=== PATIENT | male | born 1950 | race Caucasian/White ===

== ENCOUNTER 2016-08-02 16:23 | Inpatient (IN) ==
[2016-08-02] MEDS ORDERED: LACTULOSE 20 GM/30 ML UDCUP PO STA (16:58)
[2016-08-02] MEDS ORDERED: LACTULOSE 20 GM/30 ML UDCUP ONE (17:29)
--- NOTE | 2016-08-02 17:33 | CT Report ---
CT head/brain wo con Indication: Altered mental status and confusion. Comparison: None. Technique: CT of the brain was performed without administration of intravenous contrast. The CT examination was performed using one or more of the following dose reduction techniques: Automatic exposure control, adjustment of the mA and kV according to patient size, use of acute or iterative reconstruction techniques. Findings: There is no evidence of acute intracranial mass, hemorrhage, or infarction. Generalized cerebral atrophy is present. Areas of decreased attenuation within the periventricular white matter and cerebral white matter are present which could be compatible with microvascular ischemia. The basal cisterns are patent. No significant abnormality is demonstrated to involve the posterior fossa or cerebellum. Orbits and globes demonstrate no evidence of significant pathology. The paranasal sinuses are clear. No significant abnormality is demonstrated to involve the mastoid air cells. The calvarium and overlying soft tissues demonstrate no evidence of acute pathology. Impression: 1. No CT evidence of acute intracranial pathology. 2. Generalized atrophy and findings compatible with microvascular ischemia are demonstrated. 08/02/2016 5:29 PM PROCEDURE INTERPRETED AT [facility] DEPARTMENT OF RADIOLOGY Final Report Signed by: Dr. Iker Larios
--- NOTE | 2016-08-02 17:34 | XRay Report ---
XR chest 1V portable Indication: Altered mental status. Comparison: Chest x-ray 05/28/2016 Technique: Portable AP chest was performed. Findings: Patient is rotated to the right. The heart size is stable. A small hiatal hernia to moderate hiatal hernia is not excluded. Lungs are clear for degree of inspiration. Bones and soft tissues demonstrate no significant abnormalities. Partially calcified left hilar lymph nodes are suggested. Impression: 1. Given the degree of rotation, the chest suggests little change from comparison. No active process is demonstrated. 08/02/2016 5:30 PM PROCEDURE INTERPRETED AT [facility] DEPARTMENT OF RADIOLOGY Final Report Signed by: Dr. Iker Larios
[2016-08-02 17:39] LABS: Basophils % 0.4 % (0.0-0.8); Eosinophils # 0.1 10*3/uL (0.0-0.87); Eosinophils % 1.6 % (0.00-10.9); Hematocrit 26.4 VOL% (42.0-52.0); Immature Granulocytes % 0.2 %; Immature Granulocytes Absolute 0.02 #; Lymphocytes # 1.7 10*3/uL (1.4-4.0); Lymphocytes % 20.8 % (21.2-54.2); Mean Corpuscular HGB Conc 34.1 GM/DL (32-36); Mean Corpuscular Hemoglobin 32 PG (27-34); Mean Platelet Volume 9.3 FL (9.6-12.0); Monocytes # 0.6 10*3/uL (0.11-0.8); Monocytes % 7.9 % (1.7-12.7); NRBC # 0.03 10*3/uL; Neutrophils # 5.6 10*3/uL (1.4-7.4); Neutrophils % 69.1 % (38.7-73.9); Platelet Count 185 T/CUMM (130-400); Red Blood Count 2.78 MC/CUMM (3.8-5.5); Red Cell Distribution Width 15.2 % (9.3-17.3); White Blood Count 8.1 T/CUMM (4-12)
--- NOTE | 2016-08-02 17:40 | Emergency Department Note ---
ILisseth Sierra, am scribing for, and in the presence of, Ricardo Gr MD 17:11. IMaile Charles R, MD, personally performed the services described in this documentation, ascribed by Hetal Montanez in my presence, and it is both accurate and complete 739 . Arrival - Arrival Chief Complaint: Altered Mental Status ED Nursing Triage Note: brought in by EMS c/o altered LOC-onset yesterday. EMS reports that patient has been having hallucinations sicne last night. Also reports that patient fell last night-denies injuries from fall. Patient has hx of cirrhosis, has been refusing to take Lactulose since last week. Mode of Arrival: Stretcher Limitations: Altered Mental Status Source: Patient, EMS Time Seen by Provider: 08/02/16 16:46 - History of Present Illness HPI Narrative: Pt is a 65 y/o male that was brought to the ED via EMS with c/o AMS that began yesterday. Pt reports he is here because his home health nurse said his blood pressure was too low and he was in Afib. EMS states pt has been having hallucinations since last night, and he reports he has been "waking up and I don 't know where I am sometimes." EMS states pt also fell last night but denies injuries from fall. Pt reports he does have fluid build up on his abdomen and has had to have it drained twice in the last month. Pt has a Hx of cirrhosis and RN notes states pt has been refusing to take his Lactulose since last week. Pt reports he has been bleeding from his left leg that he was scheduled to have a skin graft on today. Pt has a PSHx of a partial right pneumonectomy. No other complaints/pain in ED. Onset (ago): hour(s) Consistency: constant Severity: moderate Severity scale (1-10): 5 Quality: other Allergies/Adverse Reactions: Allergies Allergy/AdvReac Type Severity Reaction Status Date / Time No Known Allergies Allergy Verified 07/31/16 10:00 Home Medications: Home Medications Medication Instructions Recorded Confirmed Type Allopurinol [Zyloprim] 300 mg PO BID 08/19/14 08/02/16 History Aspirin [Ecotrin] 81 mg PO DAILY 08/19/14 08/02/16 History Metoprolol Tartrate 25 mg PO BID 08/19/14 08/02/16 History Lactulose Liquid [Chronulac] 20 gm PO Q12HR 08/19/15 08/02/16 History Levothyroxine Tab [Synthroid Tab] 125 mcg PO DAILY@0700 08/19/15 08/02/16 History oxyCODONE/ACETAMINOPHEN 5-325 2 tablet PO Q4H PRN #30 tablet 06/19/16 08/02/16 Rx [Percocet 5-325] Digoxin Tab [Lanoxin Tab] 0.25 mg PO DAILY 07/30/16 08/02/16 History Diltiazem Cd Cap [Cardizem CD] 120 mg PO DAILY 07/30/16 08/02/16 History Omeprazole Magnesium [Prilosec] 20 mg PO DAILY 07/30/16 08/02/16 History Review of System - Review of System ROS unobtainable: due to mental status Medical,Surgical,& Family Hx - Medical History Cardio: History of: Cardiac Dysrhythmia (atrial fib), Hypertension, PVD ( multiple stents in right leg and groin), Cardiovascular Problems (afib; DR RIZVI) No history of: [place], Pacemaker Psychological: History of: Anxiety Disorders, Depression Neurology: No history of: Cerebrovascular Accident, Dementia, Seizures, TIA HEENT: History of: Ear Problem ([place]), Eye Problem ([place]) No history of: Glaucoma Endocrine: History of: Diabetes Mellitus (NIDDM), Dyslipidemia, Thyroid Disorder No history of: Diabetes Mellitus (IDDM) Rheumatology: History of;: Gout (knees, feet, ankles, wrist, and hands) Respiratory: History of: Obstructive Sleep Apnea (USES CPAP AT BEDTIME) No history of: Bronchitis, COPD Genitourinary: History of: Prostate Problems Gastrointestinal: History of: Esophageal Varices, GERD, Gastrointestinal Bleed, Liver Problems (possible cirrhosis-quit drinkin alcohol), GI Problems (dysphagia ) Musculoskeletal: History of: Back/Neck Problems (multiple back surgeries), Degenerative Disk Disease, Musculoskeletal Problems (arthritis) Hematology: History of: Anemia No history of: Blood Transfusion Reaction Other: History of: Cancer (prostate) No history of: Anesthesia Reactions - Surgical History Cardiac Surgeries: Sugical HX of: Femoral-Popliteal Bypass Graft (right groin and right leg with stents) Patient Denies: Cardiac Catheterization, Carotid Endarterectomy Comment Only: Internal Defibrillator (2010- no significant coronary artery disease) Thoracic Surgeries: Surgical HX of;: Lobectomy (right lower lobe) HEENT Surgeries: Patient denies: Carotid Endarterectomy, Eye Surgery, Thyroid Surgery, Tonsilectomy & Adenoidectomy Abdominal Surgeries: Surgical HX of: Abdominal Surgery, Colonoscopy, EGD, Hernia Repair (x2) Patient denies: Appendectomy, Cholecystectomy Reproductive Surgeries: Surgical HX of;: Genitourinary Surgery, Prostate Surgery (prostatectomy.cancer removed 2010 or 2011 in [place]) Orthopedic Surgeries: Surgical HX of;: Implanted Devices (PLATE IN BACK), Orthopedic Surgery (knee surgery x 9, hand (carpatunnel surgery to both hands), shoulder), Spinal Surgery (multiple back surgeries), Total Knee Replacement ( LEFT KNEE REPLACEMENT) - Family History Family History: Reports;: Family Cancer (father-cirrhosis), Family Diabetes ( Father and possibly a sister), Family Heart Disease (DAD,MOM,SISTER), Family Hypertension (DAD,SISTER, BROTHER), Family Stroke (DAD) Denies;: Family Anesthesia Reaction, Family Psychiatric Problems - Social History Smoking Status: Never smoker Frequency of Alcohol Use: None Type of Drug Use: None Exam Vital Signs: Vital Signs Temperature 96.3 F L 08/02/16 16:28 Pulse Rate 73 08/02/16 18:30 Respiratory Rate 13 08/02/16 18:30 Blood Pressure 91/66 08/02/16 18:30 O2 Sat by Pulse Oximetry 97 08/02/16 18:30 - General General appearance: alert, in no apparent distress - Head Head exam: Present: atraumatic, normocephalic - Eye Eye exam: Present: PERRL, EOMI - ENT ENT exam: Present: mucous membranes moist. Absent: mucous membranes dry - Neck Neck exam: Present: full ROM. Absent: tenderness - Chest Chest inspection: Present: symmetric chest wall rise. Absent: tenderness - Respiratory Respiratory exam: Present: rales (bilateral rales). Absent: normal lung sounds bilaterally (decreased breath sounds in right side) - Cardiovascular Cardiovascular exam: Present: irregular rhythm, normal heart sounds, JVD ( increased JVD distention) - Abdominal Exam Abdominal exam: Present: soft, distention (abdominal distention with ascites) - Extremities Exam Extremities exam: Present: full ROM, other (+3 edema; healing wound on left leg that is bandaged). Absent: tenderness - Back Exam Back exam: Present: full ROM. Absent: tenderness - Neurological Exam Neurological exam: Present: alert, other (slightly confused and not listening to commands) - Psychiatric Psychiatric exam: Present: other (slightly confused). Absent: normal mood - Skin Skin exam: Present: warm, dry Course - Consultations Consultation #1: Hospitalist will admit patient Time: 18:44 Results - Labs CBC & BMP: 08/02/16 17:18 08/02/16 17:18 Lab Results: I have reviewed the patients labs Labs: Laboratory Tests 08/02/16 17:18 RBC 2.78 L Hgb 9.0 L Hct 26.4 L MPV 9.3 L Lymph % (Auto) 20.8 L Laboratory Tests 08/02/16 18:10 Urine Color Yellow Urine Appearance Clear Urine pH 5.0 Ur Specific Ivins 1.016 Urine Protein Negative Urine Glucose (UA) Negative Urine Ketones Negative Urine Blood Negative Urine Nitrate Negative Urine Bilirubin Negative Urine Urobilinogen < 2.0 H Urine Leukocytes Negative Urine RBC 1 Urine WBC 3 Urine Mucus Occasional Laboratory Tests 08/02/16 08/02/16 17:18 17:18 Sodium 135 L Carbon Dioxide 20 L BUN 23 H Creatinine 1.80 H Glucose 111 H Calcium 7.8 L Magnesium 1.6 L Alkaline Phosphatase 229 H Ammonia 49 H Total Protein 4.9 L Albumin 2.2 L Albumin/Globulin Ratio 0.8 L Lipase 63.0 L Digoxin 3.10 H* Serum Alcohol < 15 L Laboratory Tests 08/02/16 18:10 Urine Opiates Screen Positive H U Benzodiazepines Scrn Positive H - Diagnostic Findings Procedure: Chest x-ray: report reviewed by me (1. Given the degree of rotation, the chest suggests little change from comparison. No active process is demonstrated.), CT: report reviewed by me (Head: 1. No CT evidence of acute intracranial pathology. 2. Generalized atrophy and findings compatible with microvascular ischemia are demonstrated.) Critical Care Time Critical Care Time: Yes Total Critical Care Time: 60 Disposition Clinical Impression: Altered mental status, Cirrhosis of liver, Generalized weakness, GENERAL DEBILITY, Alcoholic cirrhosis of liver with ascites, Atrial fibrillation, Nonhealing wound left lower extremity, Digoxin toxicity, Ulcer, Anemia of chronic disease, Diabetes mellitus, Hypomagnesemia Case discussed with: patient Disposition: Still a Patient Condition: Guarded Time of Disposition: 18:44
[2016-08-02 17:50] LABS: INR 1.1; PT Patient Result 12.2 SECS
[2016-08-02 18:01] LABS: Alanine Aminotransferase 16 U/L (16-61); Albumin 2.2 G/DL (3.4-5.0); Alkaline Phosphatase 229 U/L (45-117); Amylase 25 U/L (25-115); Aspartate Amino Transferase 32 U/L (0-37); Blood Urea Nitrogen 23 MG/DL (7-18); Calcium 7.8 MG/DL (8.5-10.1); Glucose 111 MG/DL (74-106); Magnesium 1.6 MG/DL (1.8-2.4); Osmolality,Calculated 274.1 MOS/KG (273-304); Potassium 3.8 MMOL/L (3.5-5.1); Sodium 135 MMOL/L (136-145); Total Protein 4.9 G/DL (6.4-8.3); Troponin I Only 0.038 NG/ML (0.00-0.045)
[2016-08-02 18:04] LABS: Ammonia 49 UMOL/L (11-32)
[2016-08-02 18:23] LABS: Apearance,Urine CLEAR (Clear); Bilirubin,Urine Negative (Negative); Blood, Urine Negative (Negative); Glucose,Urine (UA) Negative (Negative); Ketones,Urine Negative (Negative); Mucus,Urine Occasional /LPF (Occasional); Nitrite,Urine Negative (Negative); Protein,Urine Negative; RBC,Urine 1 /HPF (0-4); Urine Color Yellow (Yellow); Urine Specific Gravity 1.016 (1.001-1.035); Urine Urobilinogen < 2.0 EU/DL (0.2-1.0); WBC,Urine 3 /HPF (0-6)
[2016-08-02 18:38] LABS: Barbiturates Screen,Urine Negative (Negative); Benzodiazepines Screen,Urine Positive (Negative); Cannabinoid Screen,Urine Negative (Negative); Opiate Screen,Urine Positive (Negative); Phencyclidine Screen,Urine Negative (Negative)
[2016-08-02] MEDS ORDERED: MAGNESIUM SULF RIDER 2 GM in PREMIX 1 EACH IV STA (18:41)
[2016-08-02] MEDS ORDERED: MAGNESIUM SULF RIDER 50 ML IV ONE (18:44)
--- NOTE | 2016-08-02 19:36 | Hospitalist History & Physical ---
Assessment and Plan - Time spent with patient Time spent with patient: Greater than 30 minutes (1) Hypotension Status: Acute Assessment and plan: Unsure if this is related to his cirrhosis, however review of previous pressures have been higher. No evidence of infectious process, however his cirrhosis can mask normal immunological response. Will admit to ICU and place on broad spectrum antibiotics in case the source is his lower extremities. Current Visit: Yes (2) Encephalopathy acute Status: Acute Assessment and plan: May be secondary to digoxin toxicity and/or possible infectious etiology. Patient has no neurological deficits. Current Visit: Yes (3) Digoxin toxicity Status: Acute Assessment and plan: Admit to ICU, hold digoxin, consult cardiology. Obtaining EKG. Repeat lab in the AM. Current Visit: Yes (4) Atrial fibrillation Status: Chronic Assessment and plan: Chronic with history of GI bleed, not on anticoagulation except ASA. Continue with exception of metoprolol and diltiazem given hypotension. Cardiology consulted. Current Visit: Yes Qualifiers: Atrial fibrillation type: chronic Qualified Code(s): I48.2 - Chronic atrial fibrillation (5) Cirrhosis of liver Status: Chronic Assessment and plan: Ammonia is not significantly elevated. Holding lactulose for now. Defer paracentesis to daytime physician once patient is more stable. Current Visit: Yes Qualifiers: Hepatic cirrhosis type: alcoholic cirrhosis Ascites presence: with ascites Qualified Code(s): K70.31 - Alcoholic cirrhosis of liver with ascites (6) Open wounds involving multiple regions of lower extremity Status: Acute Assessment and plan: Broad spectrum antibiotics, consult Surgery. Current Visit: Yes (7) Gout Status: Acute Assessment and plan: Continue medications. Current Visit: Yes (8) Hypothyroidism Status: Acute Assessment and plan: Continue synthroid, obtain TSH. Current Visit: No (9) CKD (chronic kidney disease) Status: Acute Assessment and plan: At baseline. Current Visit: Yes (10) Diabetes mellitus Status: Chronic Assessment and plan: SSI and Accuchecks. Current Visit: Yes Qualifiers: Diabetes mellitus type: type 2 Diabetes mellitus complication status: with circulatory complication Diabetes mellitus complication detail: with peripheral angiopathy without gangrene History of Present Illness Chief complaint: altered mental status History of present illness: Mr. Turner is a 65 year old male with a medical history of hypertension, chronic atrial fibrillation, GI bleed, alcoholic cirrhosis, PAD, hypothyroidism, gout presents with altered mental status and hypotension. Patient was accompanied by his who states he has been confused since yesterday morning. She initially felt it was due to his narcotics, however despite holding them, his mentation didnt improve. She states he has been hallucinating, seeing his son and children. Furthermore, the day of admission he was weak and fell off the bedside commode. He was seen by a home health nurse who noted hypotension, and in the setting of confusion, referred him to the ER. Patient was recently discharged from [facility] where he had debridement of his lower extremities for cellulitis/nec fasc, and had a brief stint in [facility]. He was discharged, and two days ago had a skin graft of the areas of debridement of his lower extremity. There has been a foul smell from his lower extremities for several days. Patient is pleasant, and not noticeably confused. He has absolutely no complaints. Full 10 point ROS were performed. Home Medications Medication Instructions Recorded Confirmed Type Allopurinol [Zyloprim] 300 mg PO BID 08/19/14 08/02/16 History Aspirin [Ecotrin] 81 mg PO DAILY 08/19/14 08/02/16 History Metoprolol Tartrate 25 mg PO BID 08/19/14 08/02/16 History Lactulose Liquid [Chronulac] 20 gm PO Q12HR 08/19/15 08/02/16 History Levothyroxine Tab [Synthroid Tab] 125 mcg PO DAILY@0700 08/19/15 08/02/16 History oxyCODONE/ACETAMINOPHEN 5-325 2 tablet PO Q4H PRN #30 tablet 06/19/16 08/02/16 Rx [Percocet 5-325] Digoxin Tab [Lanoxin Tab] 0.25 mg PO DAILY 07/30/16 08/02/16 History Diltiazem Cd Cap [Cardizem CD] 120 mg PO DAILY 07/30/16 08/02/16 History Omeprazole Magnesium [Prilosec] 20 mg PO DAILY 07/30/16 08/02/16 History Allergies Allergy/AdvReac Type Severity Reaction Status Date / Time No Known Allergies Allergy Verified 07/31/16 10:00 Medical,Surgical,& Family Hx - Medical History Cardio: History of: Cardiac Dysrhythmia (atrial fib), Hypertension, PVD ( multiple stents in right leg and groin), Cardiovascular Problems (afib; DR RIZVI) No history of: [place], Pacemaker Psychological: History of: Anxiety Disorders, Depression Neurology: No history of: Cerebrovascular Accident, Dementia, Seizures, TIA HEENT: History of: Ear Problem ([place]), Eye Problem ([place]) No history of: Glaucoma Endocrine: History of: Diabetes Mellitus (NIDDM), Dyslipidemia, Thyroid Disorder No history of: Diabetes Mellitus (IDDM) Rheumatology: History of;: Gout (knees, feet, ankles, wrist, and hands) Respiratory: History of: Obstructive Sleep Apnea (USES CPAP AT BEDTIME) No history of: Bronchitis, COPD Genitourinary: History of: Prostate Problems Gastrointestinal: History of: Esophageal Varices, GERD, Gastrointestinal Bleed, Liver Problems (possible cirrhosis-quit drinkin alcohol), GI Problems (dysphagia ) Musculoskeletal: History of: Back/Neck Problems (multiple back surgeries), Degenerative Disk Disease, Musculoskeletal Problems (arthritis) Hematology: History of: Anemia No history of: Blood Transfusion Reaction Other: History of: Cancer (prostate) No history of: Anesthesia Reactions - Surgical History Cardiac Surgeries: Sugical HX of: Femoral-Popliteal Bypass Graft (right groin and right leg with stents) Patient Denies: Cardiac Catheterization, Carotid Endarterectomy Comment Only: Internal Defibrillator (2011- no significant coronary artery disease) Thoracic Surgeries: Surgical HX of;: Lobectomy (right lower lobe) HEENT Surgeries: Patient denies: Carotid Endarterectomy, Eye Surgery, Thyroid Surgery, Tonsilectomy & Adenoidectomy Abdominal Surgeries: Surgical HX of: Abdominal Surgery, Colonoscopy, EGD, Hernia Repair (x2) Patient denies: Appendectomy, Cholecystectomy Reproductive Surgeries: Surgical HX of;: Genitourinary Surgery, Prostate Surgery (prostatectomy.cancer removed 2010 or 2011 in [place]) Orthopedic Surgeries: Surgical HX of;: Implanted Devices (PLATE IN BACK), Orthopedic Surgery (knee surgery x 9, hand (carpatunnel surgery to both hands), shoulder), Spinal Surgery (multiple back surgeries), Total Knee Replacement ( LEFT KNEE REPLACEMENT) - Family History Family History: Reports;: Family Cancer (father-cirrhosis), Family Diabetes ( Father and possibly a sister), Family Heart Disease (DAD,MOM,SISTER), Family Hypertension (DAD,SISTER, BROTHER), Family Stroke (DAD) Denies;: Family Anesthesia Reaction, Family Psychiatric Problems - Social History Smoking Status: Never smoker Frequency of Alcohol Use: None Type of Drug Use: None 12 point system: reviewed and no additional remarkable complaints except as stated - Constitutional Constitutional: Present: weight gain. Absent: anorexia, chills, excessive sweating, fatigue, fever(s), headache(s), increased appetite, lethargy, stops breathing during sleep, weakness, weight loss - EENT Nose, mouth and throat: Absent: dysphagia, epistaxis, headache(s), lip swelling , nasal congestion, sore throat, throat swelling, tongue swelling - Cardiovascular Cardiovascular: Present: edema. Absent: chest pain at rest, chest pain with activity, diaphoresis, dyspnea, dyspnea on exertion, orthopnea, palpitations - Respiratory Respiratory: Absent: cough, dyspnea, dyspnea on exertion, wheezing, snoring, change in phlegm color - Gastrointestinal Gastrointestinal: Present: bloating, diarrhea, loose stools. Absent: abdominal pain, constipation, cramping, dysphagia, early satiety, fecal incontinence, hematemesis, hematochezia, melena, nausea, odynophagia, vomiting, jaundice - Psychiatric Psychiatric: Present: auditory hallucinations, confusion, visual hallucinations. Absent: anxiety, memory loss, panic attacks, suicidal ideation - Endocrine Endocrine: Absent: cold intolerance, fatigue, polydipsia, polyphagia Exam - Constitutional Vitals: Period Temp Pulse Resp BP Sys/Collins Pulse Ox Last 24 Hr 96.3 F-96.3 F 69-83 13-20 91-144/66-84 97-100 General appearance: over weight, no no acute distress - Head Head exam: Present: normal inspection, normocephalic, atraumatic - Eye Eye exam: Present: EOMI. Absent: conjunctival injection, periorbital swelling Pupils: Present: HERNANDEZ. Absent: normal accommodation - ENT ENT exam: Present: normal exam - Respiratory Respiratory exam: Present: clear to auscultation bilaterally. Absent: accessory muscle use, chest wall tenderness, prolonged expiratory phase, wheezes - Cardiovascular Cardiovascular exam: Present: irregular rhythm. Absent: bradycardia, carotid bruit, regular rate and rhythm, systolic murmur - GI/Abdominal GI/Abdominal exam: Present: normal bowel sounds, ascites, distended, soft. Absent: hypoactive bowel sounds, hernia, mass, tenderness, rebound - Extremities Exam Extremities exam: Present: edema, other (surgical dressing over both thighs and right LE. Foul smell.) Results - Labs CBC & BMP: 08/02/16 17:18 08/02/16 17:18 Lab Results: I have reviewed the past 24 hour labs
[2016-08-02] MEDS ORDERED: GLUCAGON 1 MG VIAL IM PRN (20:20)
[2016-08-02] MEDS ORDERED: DEXTROSE 50% 25 GM/50 ML VIAL IV PRN (20:20)
[2016-08-02] MEDS: oxyCODONE/ACETAMINOPHEN 5-325 MG TABLET PO PRN (22:37)
[2016-08-02] MEDS: PIPERACILLIN/TAZOBACTAM 3,375 MG in SODIUM CHLORIDE 0.9% 100 ML IV SCH (22:37)
[2016-08-02] MEDS: ALLOPURINOL 300 MG TABLET PO SCH (22:38)
[2016-08-02] MEDS: VANCOMYCIN INJ 2,000 MG in SODIUM CHLORIDE 0.9% 500 ML IV SCH (23:47)
[2016-08-03] MEDS: INSULIN LISPRO 100 UNIT/ML SUBCUT SCH ×4 (01:14→17:26)
[2016-08-03] MEDS: PIPERACILLIN/TAZOBACTAM 3,375 MG in SODIUM CHLORIDE 0.9% 100 ML IV SCH ×3 (05:47→22:58)
[2016-08-03 05:53] LABS: Basophils % 0.5 % (0.0-0.8); Eosinophils # 0.2 10*3/uL (0.0-0.87); Eosinophils % 2.8 % (0.00-10.9); Hematocrit 26.2 VOL% (42.0-52.0); Hemoglobin 8.8 GM/DL (14.0-18.0); Immature Granulocytes % 0.4 %; Immature Granulocytes Absolute 0.03 #; Lymphocytes % 25.5 % (21.2-54.2); Mean Corpuscular HGB Conc 33.6 GM/DL (32-36); Mean Corpuscular Hemoglobin 32 PG (27-34); Mean Corpuscular Volume 94.9 FL (87-102); Mean Platelet Volume 9.7 FL (9.6-12.0); Monocytes # 0.7 10*3/uL (0.11-0.8); Monocytes % 9.3 % (1.7-12.7); NRBC # 0.02 10*3/uL; Neutrophils # 4.7 10*3/uL (1.4-7.4); Neutrophils % 61.5 % (38.7-73.9); Platelet Count 184 T/CUMM (130-400); Red Blood Count 2.76 MC/CUMM (3.8-5.5); Red Cell Distribution Width 15.1 % (9.3-17.3); White Blood Count 7.7 T/CUMM (4-12)
[2016-08-03 06:33] LABS: Albumin 2.1 G/DL (3.4-5.0); Bilirubin,Total 0.9 MG/DL (0.2-1.0); Calcium 8.3 MG/DL (8.5-10.1); Osmolality,Calculated 278.7 MOS/KG (273-304); Potassium 5.2 MMOL/L (3.5-5.1); Thyroid Stimulating Hormone 0.585 uIU/ml (0.358-3.74); Total Protein 4.7 G/DL (6.4-8.3)
[2016-08-03] MEDS: LEVOTHYROXINE 125 MCG TABLET PO SCH (06:37)
--- NOTE | 2016-08-03 07:49 | EKG Report ---
Stationary ECG Study [facility] Test Date: 08/03/2016 1:44:58 AM Pat Name: ANGELES MARTINEZ Department: Room: 121 Gender: M Genetic Supervisor: : 1950 Requested by: Ricardo Mack Order Number: [id number] Reading MD: ANDRES ROGERS Intervals Superior Rate: 72 P: 999 LA: 0 QRS: -15 QRSD: 86 T: -22 QT: 410 QTc: 435 Interpretive Statements ATRIAL FIBRILLATION INFERIOR MYOCARDIAL INFARCTION, PROBABLY OLD Electronically Signed On 08-03-16 17:20:01 CDT by ANDRES ROGERS [email or web address]
--- NOTE | 2016-08-03 08:36 | Physician Query Form ---
CLICK EDIT DOCUMENT TO SELECT QUERY ANSWER --> OK --> SIGN Kimmie Larios RN, CCDS Certified Clinical Ware Carrier W) [phone] (f) [phone] [email or web address] PROVIDERS: Make your selection(s) from the choices in EACH section by typing an "x" and enter comments in the comment section. Please use your independent medical judgment in providing your response. This request does not imply that any particular answer is desired or expected. CLINICAL INDICATORS: (Providers should not edit this section) The medical record indicates that the patient was admitted with AMS, Cirrhosis of the liver, Ammonia 49#, and the patient was treated with Chronulac. Based on the above, could you clarify the appropriate diagnosis, if significant , that supports the above abnormalities and additional evaluation, monitoring, and/or treatment rendered: ( ) patient was treated for Hepatic Encephalopathy ( x) patient was not treated for Hepatic Encephalopathy ( ) patient was treated for Encephalopathy due to ( ) Other, please specify: ( ) Clinically unable to determine COMMENTS: PLEASE ALSO DOCUMENT RESPONSE IN PROGRESS NOTES AND/OR DISCHARGE SUMMARY Use of terms such as suspected, likely, or probable (associated with a specific diagnosis that is being evaluated, monitored, or treated as if it exists) are acceptable and can be restated in the discharge summary if not ruled out. MTDD
[2016-08-03] MEDS: LACTULOSE 20 GM/30 ML UDCUP PO SCH ×2 (08:37→22:57)
[2016-08-03] MEDS: ALLOPURINOL 300 MG TABLET PO SCH ×2 (08:37→22:58)
[2016-08-03] MEDS: PANTOPRAZOLE 40 MG TABLET PO SCH (08:37)
[2016-08-03] MEDS: ASPIRIN EC 81 MG TABLET PO SCH (08:37)
[2016-08-03] MEDS: oxyCODONE/ACETAMINOPHEN 5-325 MG TABLET PO PRN ×3 (09:20→22:58)
--- NOTE | 2016-08-03 09:53 | Cardiology Consult Note ---
Assessment and Plan - Time spent with patient Time spent with patient: Greater than 30 minutes (1) Hyperkalemia Status: Acute Assessment and plan: SEE PLAN OF CARE LISTED BELOW Current Visit: Yes (2) Cirrhosis of liver Status: Chronic Assessment and plan: SEE PLAN OF CARE LISTED BELOW Current Visit: Yes Qualifiers: Hepatic cirrhosis type: alcoholic cirrhosis Ascites presence: with ascites Qualified Code(s): K70.31 - Alcoholic cirrhosis of liver with ascites (3) Alcohol abuse Status: Chronic Assessment and plan: SEE PLAN OF CARE LISTED BELOW Current Visit: No (4) Atrial fibrillation Status: Chronic Assessment and plan: SEE PLAN OF CARE LISTED BELOW Current Visit: Yes Qualifiers: Atrial fibrillation type: chronic Qualified Code(s): I48.2 - Chronic atrial fibrillation (5) Alcoholic hepatitis with ascites Status: Chronic Assessment and plan: SEE PLAN OF CARE LISTED BELOW Current Visit: Yes (6) Diabetes mellitus Status: Chronic Assessment and plan: SEE PLAN OF CARE LISTED BELOW Current Visit: Yes Qualifiers: Diabetes mellitus type: type 2 Diabetes mellitus complication status: with circulatory complication Diabetes mellitus complication detail: with peripheral angiopathy without gangrene (7) Generalized weakness Status: Acute Assessment and plan: SEE PLAN OF CARE LISTED BELOW Current Visit: Yes (8) Esophageal varices determined by endoscopy Status: Chronic Assessment and plan: SEE PLAN OF CARE LISTED BELOW Current Visit: No (9) Cellulitis of both lower extremities Status: Acute Assessment and plan: SEE PLAN OF CARE LISTED BELOW Current Visit: No (10) Peripheral artery disease Status: Chronic Assessment and plan: SEE PLAN OF CARE LISTED BELOW Current Visit: No (11) Anemia Status: Chronic Assessment and plan: SEE PLAN OF CARE LISTED BELOW Current Visit: No Qualifiers: Anemia type: unspecified type Qualified Code(s): D64.9 - Anemia, unspecified (12) Altered mental status Status: Acute Assessment and plan: SEE PLAN OF CARE LISTED BELOW Current Visit: Yes (13) Digoxin toxicity Status: Acute Assessment and plan: SEE PLAN OF CARE LISTED BELOW Current Visit: Yes (14) Anemia of chronic disease Status: Chronic Assessment and plan: SEE PLAN OF CARE LISTED BELOW Current Visit: Yes (15) Hypotension Status: Resolved Assessment and plan: SEE PLAN OF CARE LISTED BELOW Current Visit: Yes (16) CKD (chronic kidney disease) Status: Chronic Assessment and plan: SEE PLAN OF CARE LISTED BELOW Current Visit: Yes Qualifiers: Chronic kidney disease stage: stage 3 (moderate) Qualified Code(s): N18.3 - Chronic kidney disease, stage 3 (moderate) History of Present Illness - Data of Consult Patient: known to practice within the last 3 years Consult date: 08/03/16 Requesting Physician: Sarahi Thayer Primary care physician: Steven Álvarez - Consult Narrative Reason for consult: Dig toxicity, hyperkalemia, atrial fib History of present illness: RESORT HOST: DR. KUNZ PCP: DR. ÁLVAREZ [facility] Mr. Turner, 65WM, routinely followed by Dr. Kunz. He was last seen in cardiology clinic July 18, 2016. Risk factors include: hypertension, dyslipidemia , obesity, PAD, and sedentary lifestyle. Known history of atrial fibrillation, cirrhosis of the liver related to alcohol abuse, esophageal varices and anemia, obstructive sleep apnea, chronic kidney disease. 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 History of partial right pneumonectomy. Last cardiac catheterization occurred July 24, 2010: No evidence of significant fixed coronary obstruction, successful cardioversion to sinus rhythm. Last echocardiogram July 24, 2013: EF 55%, mild MR. RVSP 42 mmHg, right-sided chambers dilated, dilated left atrium. Patient presented to the emergency department August 02, 2016, brought by EMS, with complaints of altered mental status. It is reported that his home health nurse discovered he was hypotensive and was in atrial fibrillation. He had been having hallucinations for the past several days. He has been refusing to take his lactulose for the past week. CT head reveals no acute findings. Patient denies chest pain, heaviness or tightness. He acknowledges to being weak over the past several days. Chronic shortness of breath and not compliant with CPAP device. This morning, he is hyperkalemic with potassium of 5.2. Digoxin level on admission was 3.1, 3.2 this morning. His hypotension has resolved and he is not requiring pressors. His vital signs are stable. He is not bradycardic, denies blurred vision or nausea. Continue with aspirin. He is not a candidate for anticoagulation due to his history of anemia. Echocardiogram ordered. Obviously, we are holding his digoxin. No need for reversal agent at this point as his heart rate is stable and he is having no toxic symptoms. He has been covered with antibiotics for lower extremity wounds. Surgery has been consulted. Will discuss with Dr. Kunz and await additional recommendations. ASSESSMENT/PLAN: 1. HYPOTENSION - resolved. Will order echo to verify there is no new cardiomyopathy. Will challenge with a saline bolus of 500 mL 2. ELEVATED DIGOXIN LEVEL - holding Digoxin. Hopefully, when blood pressure improves, will be able to introduce a rate controlling agent such as a beta- hussain calcium channel hussain. He is not having any overt symptoms of toxicity. EKG is stable. No need for reversal agent at this point but will continue to follow this level closely. 3. HYPERKALEMIA - reorder potassium for this afternoon. No Kayexalate at this time. 4. ATRIAL FIBRILLATION, CHRONIC - not a candidate for anticoagulation due to his history of esophageal varices, anemia. 5. ANEMIA - continue to monitor closely 6. CKD stage III - avoiding KRANTHI inhibitors for fear of worsening his renal failure. 7. ASCITES - at this point he is not uncomfortable. Will follow. 8. HEPATITIS - continue current plan of care 9. PATTI - reiterated the importance of use of his device 10. PAD WITH BLE WOUNDS - surgery has been consulted. Vanc and Zokamn 11. ALTERED MENTAL STATUS - has been refusing lactulose for the past week. Ammonia level is high. CT head negative. Continue current plan of care CC: Lavern Coyne MD - Home Medications and Allergies Home Medications: Home Medications Medication Instructions Recorded Confirmed Type Allopurinol [Zyloprim] 300 mg PO BID 08/19/14 08/02/16 History Aspirin [Ecotrin] 81 mg PO DAILY 08/19/14 08/02/16 History Metoprolol Tartrate 25 mg PO BID 08/19/14 08/02/16 History Lactulose Liquid [Chronulac] 20 gm PO Q12HR 08/19/15 08/02/16 History Levothyroxine Tab [Synthroid Tab] 125 mcg PO DAILY@0700 08/19/15 08/02/16 History oxyCODONE/ACETAMINOPHEN 5-325 2 tablet PO Q4H PRN #30 tablet 06/19/16 08/02/16 Rx [Percocet 5-325] Digoxin Tab [Lanoxin Tab] 0.25 mg PO DAILY 07/30/16 08/02/16 History Diltiazem Cd Cap [Cardizem CD] 120 mg PO DAILY 07/30/16 08/02/16 History Omeprazole Magnesium [Prilosec] 20 mg PO DAILY 07/30/16 08/02/16 History Allergies/Adverse Reactions: Allergies Allergy/AdvReac Type Severity Reaction Status Date / Time No Known Allergies Allergy Verified 07/31/16 10:00 Review of systems: REVIEW OF SYSTEMS: See HPI - Constitutional Constitutional: Present: Fatigue. Absent: syncope, anorexia, night sweats - EENT Eyes: Absent: blurry vision, loss of vision, diplopia Ears: Absent: decreased hearing, ear pain, ear discharge - Cardiovascular Cardiovascular: Denies: chest pain with exertion, palpitations. Absent: chest pain with deep breath - Respiratory Respiratory: Present: Chronic HERNADEZ, denies cough. Absent: wheezing, denies recent hemoptysis, change in phlegm color - Gastrointestinal Gastrointestinal: Denies: constipation. Denies abdominal pain though distended. Absent: hematemesis, hematochezia, melena, change in bowel habits, nausea - Genitourinary Genitourinary: Absent: dysuria, urinary hesitancy, flank pain - Musculoskeletal Musculoskeletal: Present: back pain Absent: joint swelling, muscle cramps, muscle weakness - Neurological Neurological: Present: normal gait with recent fall. Absent: dizziness, hemiparesis - Psychiatric Psychiatric: Absent: anxiety, depression, difficulty concentrating - Endocrine Endocrine: Present: fatigue. Absent: cold intolerance, heat intolerance, polyuria, polyphagia, polydipsia - Hematologic/Lymphatic Hematologic/Lymphatic: Present: easy bruising. Absent: easy bleeding -Integumentary Integumentary: Chronic lower extremity wounds. Left lower leg with recent drainage. Medical,Surgical,& Family Hx - Medical History Cardio: History of: Cardiac Dysrhythmia (atrial fib), Hypertension, PVD ( multiple stents in right leg and groin) No history of: CAD, MT, Pacemaker Psychological: History of: Anxiety Disorders, Depression Neurology: No history of: Cerebrovascular Accident, Dementia, Seizures, TIA HEENT: History of: Ear Problem ([place]), Eye Problem ([place]) No history of: Glaucoma Endocrine: History of: Diabetes Mellitus (NIDDM), Dyslipidemia, Thyroid Disorder No history of: Diabetes Mellitus (IDDM) Rheumatology: History of;: Gout (knees, feet, ankles, wrist, and hands) Respiratory: History of: Obstructive Sleep Apnea (USES CPAP AT BEDTIME) No history of: Bronchitis, COPD Genitourinary: History of: Prostate Problems Gastrointestinal: History of: Esophageal Varices, GERD, Gastrointestinal Bleed, Liver Problems (possible cirrhosis-quit drinkin alcohol), GI Problems (dysphagia ) Musculoskeletal: History of: Back/Neck Problems (multiple back surgeries), Degenerative Disk Disease, Musculoskeletal Problems (arthritis) Hematology: History of: Anemia No history of: Blood Transfusion Reaction Other: History of: Cancer (prostate) No history of: Anesthesia Reactions - Surgical History Cardiac Surgeries: Sugical HX of: Femoral-Popliteal Bypass Graft (right groin and right leg with stents) Patient Denies: Cardiac Catheterization, Carotid Endarterectomy Comment Only: Internal Defibrillator (2011- no significant coronary artery disease) Thoracic Surgeries: Surgical HX of;: Lobectomy (right lower lobe) HEENT Surgeries: Patient denies: Carotid Endarterectomy, Eye Surgery, Thyroid Surgery, Tonsilectomy & Adenoidectomy Abdominal Surgeries: Surgical HX of: Abdominal Surgery, Colonoscopy, EGD, Hernia Repair (x2) Patient denies: Appendectomy, Cholecystectomy Reproductive Surgeries: Surgical HX of;: Genitourinary Surgery, Prostate Surgery (prostatectomy.cancer removed 2010 or 2011 in [place]) Orthopedic Surgeries: Surgical HX of;: Implanted Devices (PLATE IN BACK), Orthopedic Surgery (knee surgery x 9, hand (carpatunnel surgery to both hands), shoulder), Spinal Surgery (multiple back surgeries), Total Knee Replacement ( LEFT KNEE REPLACEMENT) - Family History Family History: Reports;: Family Cancer (father-cirrhosis), Family Diabetes ( Father and possibly a sister), Family Heart Disease (DAD,MOM,SISTER), Family Hypertension (DAD,SISTER, BROTHER), Family Stroke (DAD) Denies;: Family Anesthesia Reaction, Family Psychiatric Problems - Social History Smoking Status: Never smoker Have you smoked in the last 12 months: No Frequency of Alcohol Use: None Type of Drug Use: None Physical Examination Vital Signs Temp Pulse Resp BP Pulse Ox 96.3 F L 83 20 144/81 99 08/02/16 16:28 08/02/16 16:28 08/02/16 16:28 08/02/16 16:28 08/02/16 16:28 General: [Wakes and answers questions, confused to place and time.] [Pleasant and cooperative. ] [Appears comfortable.] HEENT: [PERRL, normocephalic, atraumatic. Mucous membranes moist. No jaundice noted. Conjunctiva moist and clear, sclerae anicteric] Neck: Difficult to assess for JVD due to habitus. No thyromegaly or lymphadenopathy noted. No carotid bruit appreciated Cardiac: [Irregularly irregular rhythm, controlled rate. No obvious murmur, rub or gallop. Lungs: [Clear to auscultation without accessory muscle use to assist the respiratory pattern.] Oxygen in use via nasal cannula Abdomen: Ascites, bowel sounds normoactive. Protuberant Musculoskeletal: No fluid collection. Decreased range of motion is noted. Extremities: No clubbing, cyanosis noted. [ No edema noted.] Upper extremity pulses 2+. Lower extremity pulses 1+. Skin: Bilateral lower extremities wrapped in bandages. Erythema noted no unusual lesions or rashes. Neuro: Awake, alert and oriented 2. Moves all extremities well without hemiparesis or paralysis. No essential tremor is appreciated. Result/EKG - Labs CBC & BMP: 08/03/16 05:20 08/03/16 05:20 Lab Results: I have reviewed the past 24 hour labs Labs: Laboratory Results - last 24 hr 08/02/16 08/03/16 08/03/16 23:45 05:20 05:20 WBC 7.7 RBC 2.76 L Hgb 8.8 L Hct 26.2 L MCV 94.9 MCH 32 MCHC 33.6 RDW 15.1 Plt Count 184 MPV 9.7 Neut % (Auto) 61.5 Lymph % (Auto) 25.5 Clay % (Auto) 9.3 Eos % (Auto) 2.8 Baso % (Auto) 0.5 Neut # (Auto) 4.7 Lymph # (Auto) 2.0 Clay # (Auto) 0.7 Eos # (Auto) 0.2 Baso # (Auto) 0.0 Immature Gran % 0.4 Nucleated RBC % 0.3 Immature Gran # 0.03 Nucleated RBCs # 0.02 Sodium 138 Potassium 5.2 H Chloride 107 Carbon Dioxide 19 L Anion Gap 17.2 H BUN 24 H Creatinine 1.60 H GFR Calculation 66 BUN/Creatinine Ratio 15.00 Glucose 98 POC Glucose 130 H Calculated Osmolality 278.7 Calcium 8.3 L Total Bilirubin 0.90 AST 40 H ALT 15 L Alkaline Phosphatase 208 H Total Protein 4.7 L Albumin 2.1 L Globulin 2.6 Albumin/Globulin Ratio 0.8 L Free T4 TSH 3rd Generation 0.585 Digoxin 08/03/16 08/03/16 08/03/16 05:20 05:20 06:14 WBC RBC Hgb Hct MCV MCH MCHC RDW Plt Count MPV Neut % (Auto) Lymph % (Auto) Clay % (Auto) Eos % (Auto) Baso % (Auto) Neut # (Auto) Lymph # (Auto) Clay # (Auto) Eos # (Auto) Baso # (Auto) Immature Gran % Nucleated RBC % Immature Gran # Nucleated RBCs # Sodium Potassium Chloride Carbon Dioxide Anion Gap BUN Creatinine GFR Calculation BUN/Creatinine Ratio Glucose POC Glucose 117 H Calculated Osmolality Calcium Total Bilirubin AST ALT Alkaline Phosphatase Total Protein Albumin Globulin Albumin/Globulin Ratio Free T4 1.39 TSH 3rd Generation Digoxin 3.20 H* - Diagnostic Findings Procedure: Chest x-ray: report reviewed by me, CT: report reviewed by me - EKG EKG results: interpreted by me EKG shows: atrial fibrillation
--- NOTE | 2016-08-03 10:01 | Event Note ---
General Surgery Progress Note Chief complaint This patient is a 65-year-old man with a history of a necrotizing soft tissue infection of the left lower extremity treated with extensive debridement and split thickness skin graft by Dr. Flores on 07/31/2016 who is readmitted with altered mental status last night to the CCU. Interval history The patient had a head CT and a workup yesterday that revealed a slight elevation of his ammonia level but a normal head CT. He had some elevation of his creatinine. He was admitted to the ICU. /CCU for workup. He is oriented 3 this morning. He has no fevers and his white blood cell count is normal. His digoxin level was elevated at 3.1. Physical exam The patient is afebrile with normal vital signs He is oriented 3 this morning. His donor sites on both his thighs are clean with no erythema or drainage that significant. The left lower extremity dressing was taken down all the way to the Xeroform gauze. There is no significant drainage from the wound and there is no erythema. Labs Reviewed, as above Imaging Reviewed, as above Assessment and plan The patient is admitted with altered mental status. I will continue to follow his wounds while he is here. He appears to be doing well from the standpoint of his skin grafting. Wound care instructions were given to the nursing in the CCU but it is important for the physician to do the dressing changes on her for a skin graft so I will do these each morning myself.
[2016-08-03] MEDS ORDERED: SODIUM CHLORIDE 0.45% 1,000 ML IV SCH (10:30)
[2016-08-03] MEDS ORDERED: ONDANSETRON 4 MG/2 ML VIAL ONE (12:58)
--- NOTE | 2016-08-03 13:12 | Gastrointestinal Consult Note ---
Assessment and Plan (1) Alcoholic cirrhosis of liver with ascites Status: Acute Assessment and plan: This patient has a long-standing history of cirrhosis with ascites most recently. He is not having any further dysphagia but does feel confused and with a poor appetite. He is known to have varices by previous scope done by Dr. Ring back in 2014. Is not having active hematemesis will not repeat this upper endoscopy. It is reasonable to have him on some beta-blockade as you do with metoprolol. He has just received a 6.8 L paracentesis and feels improved. We will try and adjust his Lasix dosing so that we can avoid future paracentesis or minimize this to whatever degree is possible. Metolazone has been required in the past in order to get a decent diuresis in this patient. We will continue to watch his electrolytes over the weekend of the paracentesis is taken place. Hopefully the fluid is being sent off for cytology and cell count--hopefully to rule out SBP. Current Visit: Yes (2) Encephalopathy acute Status: Acute Assessment and plan: As noted above we are going to rule out pontine is bacterial peritonitis with this most recent tap. We will continue to monitor his ammonia level for the next several days and later his electrolytes as he is having his Lasix/ spironolactone/metolazone adjusted. The patient has a digoxin which is high at this time with suggest putting this on hold as this can certainly add to the encephalopathy. Current Visit: Yes (3) Esophageal varices without bleeding Status: Acute Assessment and plan: As noted again above the patient did have an EGD done 2014 which showed esophageal varices, will continue to monitor him for black stools and a gross drop in his hematocrit. His hematocrit is certainly dropped since May 2016 when this was 38% and is now down to 26%. Would suggest that he might benefit from upper endoscopy on Saturday looking at the status of these varices. He may need banding at this point. The patient is going to the regular medical floor at this time to room 236. Current Visit: Yes History of Present Illness History of present illness: Mr. Turner is a 65 year old male who is an alcoholic cirrhotic who states to me that his last drink, only drink this year was back in April but had told me that his last drink on his last admission back in April was back in March 2016. He states to the senior technical analyst that he may have had an ice cold beer more recently too. History of this time seems unreliable. The patient is come off of her recent swing bed stay over [facility] by report and was home for 3 days and refusing his lactulose. His ammonia levels in the past have been down as low as 10-24 and this visit have climbed back up into the 49 range. His belly is quite large and tense and is undergoing paracentesis at this time. This had been done on a routine basis in the past. From a synthetic standpoint his liver has been doing fairly well with low transaminases and a slightly elevated alkaline phosphatase to 208 with normal bilirubin of 0.9. He remains mildly confused at this time. He does have a history of esophageal varices in the past, grade 1 which were noted on upper endoscopy done by Dr. Ring at the same time he received a dilation for his dysphagia symptoms to 54 Syriac by single pass Mendiola dilator on 08/19/14. Patient's last colonoscopy was done by me on 08/23/15 with the discovery of multiple polyps in the cecum and ascending and transverse colon all removed by snare polypectomy there were multiple villous polyps noted and the patient will need a repeat colonoscopy in 1 year i.e. this was due to occur last month. With his recent hospitalizations at [facility] this was likely put on the back burner. His last AFP level was 4.5 which is normal (0-8.3). Ultrasounds have never shown a mass in the liver, but did show the ascites. Home Medications Medication Instructions Recorded Confirmed Type Allopurinol [Zyloprim] 300 mg PO BID 08/19/14 08/02/16 History Aspirin [Ecotrin] 81 mg PO DAILY 08/19/14 08/02/16 History Metoprolol Tartrate 25 mg PO BID 08/19/14 08/02/16 History Lactulose Liquid [Chronulac] 20 gm PO Q12HR 08/19/15 08/02/16 History Levothyroxine Tab [Synthroid Tab] 125 mcg PO DAILY@0700 08/19/15 08/02/16 History oxyCODONE/ACETAMINOPHEN 5-325 2 tablet PO Q4H PRN #30 tablet 06/19/16 08/02/16 Rx [Percocet 5-325] Digoxin Tab [Lanoxin Tab] 0.25 mg PO DAILY 07/30/16 08/02/16 History Diltiazem Cd Cap [Cardizem CD] 120 mg PO DAILY 07/30/16 08/02/16 History Omeprazole Magnesium [Prilosec] 20 mg PO DAILY 07/30/16 08/02/16 History Allergies Allergy/AdvReac Type Severity Reaction Status Date / Time No Known Allergies Allergy Verified 07/31/16 10:00 Medical,Surgical,& Family Hx - Medical History Cardio: History of: Cardiac Dysrhythmia (atrial fib), Hypertension, PVD ( multiple stents in right leg and groin), Cardiovascular Problems (afib; DR RIZVI) No history of: CAD, MT, Pacemaker Psychological: History of: Anxiety Disorders, Depression Neurology: No history of: Cerebrovascular Accident, Dementia, Seizures, TIA HEENT: History of: Ear Problem ([place]), Eye Problem ([place]) No history of: Glaucoma Endocrine: History of: Diabetes Mellitus (NIDDM), Dyslipidemia, Thyroid Disorder No history of: Diabetes Mellitus (IDDM) Rheumatology: History of;: Gout (knees, feet, ankles, wrist, and hands) Respiratory: History of: Obstructive Sleep Apnea (USES CPAP AT BEDTIME) No history of: Bronchitis, COPD Genitourinary: History of: Prostate Problems Gastrointestinal: History of: Esophageal Varices, GERD, Gastrointestinal Bleed, Liver Problems (possible cirrhosis-quit drinkin alcohol), GI Problems (dysphagia ) Musculoskeletal: History of: Back/Neck Problems (multiple back surgeries), Degenerative Disk Disease, Musculoskeletal Problems (arthritis) Hematology: History of: Anemia No history of: Blood Transfusion Reaction Other: History of: Cancer (prostate) No history of: Anesthesia Reactions - Surgical History Cardiac Surgeries: Sugical HX of: Femoral-Popliteal Bypass Graft (right groin and right leg with stents) Patient Denies: Cardiac Catheterization, Carotid Endarterectomy Comment Only: Internal Defibrillator (2010- no significant coronary artery disease) Thoracic Surgeries: Surgical HX of;: Lobectomy (right lower lobe) HEENT Surgeries: Patient denies: Carotid Endarterectomy, Eye Surgery, Thyroid Surgery, Tonsilectomy & Adenoidectomy Abdominal Surgeries: Surgical HX of: Abdominal Surgery, Colonoscopy, EGD, Hernia Repair (x2) Patient denies: Appendectomy, Cholecystectomy Reproductive Surgeries: Surgical HX of;: Genitourinary Surgery, Prostate Surgery (prostatectomy.cancer removed 2010 or 2011 in [place]) Orthopedic Surgeries: Surgical HX of;: Implanted Devices (PLATE IN BACK), Orthopedic Surgery (knee surgery x 9, hand (carpatunnel surgery to both hands), shoulder), Spinal Surgery (multiple back surgeries), Total Knee Replacement ( LEFT KNEE REPLACEMENT) - Family History Family History: Reports;: Family Cancer (father-cirrhosis), Family Diabetes ( Father and possibly a sister), Family Heart Disease (DAD,MOM,SISTER), Family Hypertension (DAD,SISTER, BROTHER), Family Stroke (DAD) Denies;: Family Anesthesia Reaction, Family Psychiatric Problems - Social History Smoking Status: Never smoker Frequency of Alcohol Use: None Type of Drug Use: None ROS unobtainable: due to encephalopathy Exam - Constitutional Vitals: Period Temp Pulse Resp BP Sys/Collins Pulse Ox Last 24 Hr 96.9 F-97.9 F 71-94 14-24 86-137/60-105 93-100 General appearance: mild distress - Eye Eye exam: Present: EOMI. Absent: scleral icterus - ENT ENT exam: Present: normal oropharynx - Respiratory Respiratory exam: Present: clear to auscultation bilaterally, decreased breath sounds (In the bases bilaterally) - Cardiovascular Cardiovascular exam: Present: regular rate and rhythm - GI/Abdominal GI/Abdominal exam: Present: normal bowel sounds, ascites (Large amount of ascites noted with previous tenseness now improving with paracentesis which is going on presently from the patient's left lower abdomen), soft. Absent: distended, guarding, tenderness, rebound - Extremities Exam Extremities exam: Present: edema - Neurological Exam Neurological exam: Present: alert, altered (Patient is confused and at times hallucinating). Absent: motor sensory deficit - Psychiatric Psychiatric exam: Present: normal affect, agitated - Skin Skin exam: Present: warm Results - Labs CBC & BMP: 08/03/16 05:20 08/03/16 05:20
[2016-08-03] MEDS ORDERED: ALBUMIN 5% 12.5 GM/250 ML VIAL IV ONE (13:15)
--- NOTE | 2016-08-03 13:18 | Post Interventional Procedure ---
Pre-op diagnosis: End-stage liver disease, ascites Post-op diagnosis: same Procedure: Ultrasound-guided paracentesis Radiologist: Mario Goff Anesthesia: local Specimens: other (6800 cc straw-colored ascites) Estimated blood loss: none Complications: none Condition: stable Assessment and Plan - Time spent with patient Time spent with patient: Less than 30 minutes
[2016-08-03] MEDS ORDERED: ALBUMIN 5% 12.5 GM in PREMIX 1 EACH IV ONE (13:19)
[2016-08-03 13:39] LABS: Neutrophils,Peritoneal Fluid 50 %; RBC,Peritoneal Fluid 178 T/CUMM
--- NOTE | 2016-08-03 13:49 | Hospitalist Progress Note ---
Assessment and Plan (1) Alcoholic cirrhosis of liver with ascites Status: Acute Assessment and plan: 1)hypotension- resolved 2)encephalopathy acute, due to cirrhosis/dig toxicity- on lactulose, follow ammonia level. 3)dig toxicity- dig stopped. no arrhythmias at this time. afib is underlying rhythm. on ASA for stroke prophylaxis. rate controlled. cards following. 4)cirrhosis- paracentesis of 6.8 L today. fluid analysis rules out SBP. on lactulose. will need diuresis with lasix and possibly zaroxolyn per DR Reaves's history. 5)CKD 6)DM- SSI, accuchecks 7)transfer to [facility]. Current Visit: Yes (2) Diabetes mellitus Status: Chronic Current Visit: Yes Qualifiers: Diabetes mellitus type: type 2 Diabetes mellitus complication status: with circulatory complication Diabetes mellitus complication detail: with peripheral angiopathy without gangrene (3) Acute gouty arthritis Status: Resolved Current Visit: No (4) Peripheral artery disease Status: Chronic Current Visit: No (5) Open wound of both legs with complication Status: Acute Current Visit: No (6) Digoxin toxicity Status: Acute Current Visit: Yes (7) Anemia of chronic disease Status: Chronic Current Visit: Yes (8) CKD (chronic kidney disease) Status: Chronic Current Visit: Yes Qualifiers: Chronic kidney disease stage: stage 3 (moderate) Qualified Code(s): N18.3 - Chronic kidney disease, stage 3 (moderate) (9) Esophageal varices without bleeding Status: Acute Current Visit: Yes Hospitalist: Subjective Interval history: Mr Turner is no longer confused this morning. He has been hemodynamically stable. He has had trouble voiding and a mena has been placed. He has had a paracentesis and analysis or the ascitic fluid ruled out peritonitis. He has also been seen by Dr Reaves who knows him well. He is on lactulose. His dig level remains high. He can move to the floor. Exam - Constitutional Vitals: Period Temp Pulse Resp BP Sys/Collins Pulse Ox Last 24 Hr 96.9 F-97.9 F 71-94 14-24 86-137/60-105 93-100 General appearance: no acute distress, over weight - Head Head exam: Present: normocephalic, atraumatic - Eye Eye exam: Present: EOMI. Absent: scleral icterus - Respiratory Respiratory exam: Present: clear to auscultation bilaterally - Cardiovascular Cardiovascular exam: Present: regular rate and rhythm - GI/Abdominal GI/Abdominal exam: Present: normal bowel sounds, ascites, soft. Absent: tenderness - Extremities Exam Extremities exam: Present: edema (trace. dressings clean at site of fasciitis and skin graft donor site.) - Neurological Exam Neurological exam: Present: alert, oriented X3 - Psychiatric Psychiatric exam: Present: normal affect, normal mood - Skin Skin exam: Present: warm, dry Results - Labs CBC & BMP: 08/03/16 05:20 08/03/16 05:20
[2016-08-03] MEDS ORDERED: ALBUMIN 25% 12.5 GM in PREMIX 1 EACH IV ONE (14:00)
--- NOTE | 2016-08-03 14:51 | Ultrasound Report ---
US paracentesis abd w/image Indication: Ascites. Ultrasound-guided paracentesis Description: A formal timeout was performed. Maximum sterile barrier technique was used. The left lower quadrant was prepped and draped in sterile fashion. Under sonographic guidance, a 6 Swedish pigtail catheter was advanced into the ascites using trocar technique. A captured sonographic image documents needle position. The needle was removed. Through the catheter, we obtained a total of 6800 cc of straw-colored ascites. No additional fluid could be obtained. Therefore, the catheter was removed. A bandage was placed at the puncture site. The patient tolerated the procedure well. Impression: Ultrasound-guided paracentesis. PROCEDURE INTERPRETED AT [facility] DEPARTMENT OF RADIOLOGY Final Report Signed by: Mario Goff M.D.
[2016-08-03 15:21] LABS: Apearance,Urine Slightly Hazy (Clear); Bacteria,Urine Occasional /HPF (Few); Bilirubin,Urine Negative (Negative); Blood, Urine Negative (Negative); Glucose,Urine (UA) Negative (Negative); Ketones,Urine Negative (Negative); Nitrite,Urine Negative (Negative); Protein,Urine Negative; RBC,Urine <1 /HPF (0-4); Squamous Epithelial Cell,Urine Occasional /HPF (0-10); Urine Color Yellow (Yellow); Urine Specific Gravity 1.018 (1.001-1.035); Urine Urobilinogen < 2.0 EU/DL (0.2-1.0); WBC,Urine 2 /HPF (0-6)
[2016-08-03] MEDS ORDERED: ONDANSETRON 4 MG/2 ML VIAL IV PRN (16:49)
[2016-08-03] MEDS: DESITIN 4OZ/NYSTATIN 15 GRAM MIXTURE PASTE TOP SCH ×2 (17:27→23:07)
[2016-08-03] MEDS: RIFAXIMIN 550 MG TABLET PO SCH (22:57)
[2016-08-04] MEDS: VANCOMYCIN INJ 2,000 MG in SODIUM CHLORIDE 0.9% 500 ML IV SCH ×2 (00:46→21:06)
[2016-08-04] MEDS: INSULIN LISPRO 100 UNIT/ML SUBCUT SCH ×4 (01:12→17:16)
[2016-08-04 04:54] LABS: Basophils % 0.5 % (0.0-0.8); Eosinophils # 0.2 10*3/uL (0.0-0.87); Eosinophils % 3.3 % (0.00-10.9); Hematocrit 25.7 VOL% (42.0-52.0); Hemoglobin 8.6 GM/DL (14.0-18.0); Immature Granulocytes % 0.5 %; Immature Granulocytes Absolute 0.04 #; Lymphocytes # 1.3 10*3/uL (1.4-4.0); Lymphocytes % 18.1 % (21.2-54.2); Mean Corpuscular HGB Conc 33.5 GM/DL (32-36); Mean Corpuscular Hemoglobin 31 PG (27-34); Mean Corpuscular Volume 93.8 FL (87-102); Mean Platelet Volume 9.4 FL (9.6-12.0); Monocytes # 0.6 10*3/uL (0.11-0.8); Monocytes % 8.1 % (1.7-12.7); NRBC # 0.02 10*3/uL; Neutrophils # 5.1 10*3/uL (1.4-7.4); Neutrophils % 69.5 % (38.7-73.9); Platelet Count 129 T/CUMM (130-400); Red Blood Count 2.74 MC/CUMM (3.8-5.5); Red Cell Distribution Width 15.4 % (9.3-17.3); White Blood Count 7.3 T/CUMM (4-12)
[2016-08-04 05:35] LABS: Osmolality,Calculated 279.5 MOS/KG (273-304)
[2016-08-04] MEDS: oxyCODONE/ACETAMINOPHEN 5-325 MG TABLET PO PRN ×3 (05:43→21:08)
[2016-08-04] MEDS: PIPERACILLIN/TAZOBACTAM 3,375 MG in SODIUM CHLORIDE 0.9% 100 ML IV SCH ×3 (05:44→21:07)
[2016-08-04] MEDS: LEVOTHYROXINE 125 MCG TABLET PO SCH (06:48)
[2016-08-04 07:03] LABS: Magnesium 1.6 MG/DL (1.8-2.4)
--- NOTE | 2016-08-04 07:45 | ECHO Report ---
Nikolay Turner Exam Date: 08/03/2016 10:58 Referring Physician: Technologist: Tanika Jimenez RDCS Age: 65 Ht (in): 77 Wt (lb): 281 Gender: M Exam Location: [facility] Echo Indications: Atrial fibrillation, Hyperkalemia, Cirrhosis of the liver, Alcoholic hepatitis w/ascites BP: 94 / 64 HR: 77 Rhythm: Sinus Technical Quality: Technically difficult study IMPRESSIONS Normal left ventricular cavity size. Moderate left ventricular hypertrophy. Left ventricular ejection fraction is estimated at 55 %. The right ventricle is normal in size and function. Moderately increased right atrial size. Moderately increased left atrial size. Mildly thickened mitral valve. Mild mitral annular calcification. No mitral valve regurgitation. Aortic valve sclerosis without stenosis or regurgitation. Morphologically normal tricuspid valve. Trace to mild tricuspid valve regurgitation. Tricuspid regurgitation velocities suggest a PAP of 35 mmHg. Morphologically normal pulmonic valve without significant stenosis. There is no pulmonic regurgitation. Normal pericardium without effusion. Normal ascending aorta dimension. MEASUREMENTS (Male / Female) Normal Values 2D ECHO LV Diastolic Diameter PLAX 5.0 cm 4.2 - 5.9 / 3.9 - 5.3 cm LV Systolic Diameter PLAX 2.4 cm LV Fractional Shortening PLAX 53.4 % IVS Diastolic Thickness 1.7 cm 0.6 - 1.0 / 0.6 - 0.9 cm LVPW Diastolic Thickness 1.0 cm 0.6 - 1.0 / 0.6 - 0.9 cm RV Internal Dim ED PLAX 3.5 cm Aortic Root Diameter 4.1 cm LA Systolic Diameter LX 5.9 cm 3.0 - 4.0 / 2.7 - 3.8 cm DOPPLER TR Peak Velocity 250.0 cm/s TR Peak Gradient 25.0 mmHg FINDINGS Left Ventricle Normal left ventricular cavity size. Moderate left ventricular hypertrophy. Left ventricular ejection fraction is estimated at 55 %. Right Ventricle The right ventricle is normal in size and function. Right Atrium Moderately increased right atrial size. Left Atrium Moderately increased left atrial size. Mitral Valve Mildly thickened mitral valve. Mild mitral annular calcification. No mitral valve regurgitation. Aortic Valve Aortic valve sclerosis without stenosis or regurgitation. Tricuspid Valve Morphologically normal tricuspid valve. Trace to mild tricuspid valve regurgitation. Tricuspid regurgitation velocities suggest a PAP of 35 mmHg. Pulmonic Valve Morphologically normal pulmonic valve without significant stenosis. There is no pulmonic regurgitation. Pericardium Normal pericardium without effusion. Aorta Normal ascending aorta dimension. Олег Kunz MD (Electronically Signed) Final Date: 04 Aug 2016 07:44
[2016-08-04] MEDS: PANTOPRAZOLE 40 MG TABLET PO SCH (09:49)
[2016-08-04] MEDS: ALLOPURINOL 300 MG TABLET PO SCH ×2 (09:49→21:08)
[2016-08-04] MEDS: RIFAXIMIN 550 MG TABLET PO SCH ×2 (09:49→21:08)
[2016-08-04] MEDS: LACTULOSE 20 GM/30 ML UDCUP PO SCH ×2 (09:49→21:08)
[2016-08-04] MEDS: ASPIRIN EC 81 MG TABLET PO SCH (09:49)
[2016-08-04] MEDS: DESITIN 4OZ/NYSTATIN 15 GRAM MIXTURE PASTE TOP SCH ×2 (09:50→21:08)
--- NOTE | 2016-08-04 10:37 | Hospitalist Progress Note ---
Assessment and Plan - Time spent with patient Time spent with patient: Less than 30 minutes (1) Alcoholic cirrhosis of liver with ascites Status: Acute Assessment and plan: Patient has long-standing history of cirrhosis with ascites. He has recently had paracentesis 6.8 L. At this time he has no further complaints. Current Visit: Yes (2) Thrombocytopenia Status: Chronic Assessment and plan: Patient has thrombocytopenia without evidence of bleeding. We will continue to monitor. Current Visit: No (3) Hypomagnesemia Status: Acute Assessment and plan: Patient received IV magnesium supplementation today followed by oral replacement daily beginning in the a.m. Current Visit: No (4) Atrial fibrillation Status: Chronic Assessment and plan: Patient has chronic atrial fibrillation and rate is controlled. Digoxin level is high which is on hold at this time. Cardiology continues to follow. Current Visit: Yes Qualifiers: Atrial fibrillation type: chronic Qualified Code(s): I48.2 - Chronic atrial fibrillation (5) Hypertension Status: Chronic Assessment and plan: Patient has chronic essential hypertension. He is currently medically stable. Continue current regimen. Current Visit: No Qualifiers: Hypertension type: essential hypertension Qualified Code(s): I10 - Essential (primary) hypertension (6) Diabetes mellitus Status: Chronic Assessment and plan: Patient states he has had no prior history of diabetes prior to hospitalization because of steroid therapy have hyperglycemia. Will continue Accu-Cheks with sliding scale insulin at this time. Current Visit: Yes Qualifiers: Diabetes mellitus type: type 2 Diabetes mellitus complication status: with circulatory complication Diabetes mellitus complication detail: with peripheral angiopathy without gangrene (7) Esophageal varices determined by endoscopy Status: Chronic Assessment and plan: Patient has prior history of esophageal varices on EGD. No plans for possible upper endoscopy on Saturday to reevaluate. Current Visit: No (8) Anemia Status: Chronic Assessment and plan: Patient has anemia which is been relatively stable without evidence of bleeding at this time. He has been followed by GI. Note plans for possible upper endoscopy on Saturday. Current Visit: No Qualifiers: Anemia type: unspecified type Qualified Code(s): D64.9 - Anemia, unspecified (9) Digoxin toxicity Status: Acute Assessment and plan: Digoxin level remains 2.5. We will continue placed on hold. Cardiology is following as well. Current Visit: Yes (10) Hypotension Status: Resolved Assessment and plan: Resolved. Continue to monitor and follow. Current Visit: Yes (11) Hypothyroidism Status: Chronic Assessment and plan: Continuing current thyroid replacement therapy. Current Visit: No Hospitalist: Subjective Interval history: Chart is been reviewed and patient examined. He has no complaints today of chest pain, shortness breath, abdominal pain, nausea, vomiting, diarrhea, constipation, bleeding. Exam - Constitutional Vitals: Period Temp Pulse Resp BP Sys/Collins Pulse Ox Last 24 Hr 96.5 F-98.8 F 72-121 15-24 94-135/62-85 96-100 General appearance: no acute distress - Head Head exam: Present: normocephalic, atraumatic - Eye Eye exam: Present: EOMI Pupils: Present: HERNANDEZ - ENT ENT exam: Present: normal oropharynx - Neck Neck exam: Present: normal inspection - Respiratory Respiratory exam: Present: clear to auscultation bilaterally. Absent: rales, rhonchi, wheezes - Cardiovascular Cardiovascular exam: Present: irregular rhythm. Absent: tachycardia - GI/Abdominal GI/Abdominal exam: Present: normal bowel sounds, ascites, distended, soft. Absent: mass, tenderness, rebound - Extremities Exam Extremities exam: Present: edema. Absent: calf tenderness - Back Exam Back exam: Present: normal inspection - Neurological Exam Neurological exam: Present: alert, oriented X3, CN II-XII intact. Absent: motor sensory deficit - Psychiatric Psychiatric exam: Present: normal affect, normal mood. Absent: agitated, anxious - Skin Skin exam: Present: warm, dry. Absent: rash Results - Labs CBC & BMP: 08/04/16 04:31 08/04/16 04:31 Lab Results: I have reviewed the past 24 hour labs
[2016-08-04] MEDS ORDERED: MAGNESIUM SULF RIDER 2 GM in PREMIX 1 EACH IV ONE (10:38)
--- NOTE | 2016-08-04 11:06 | Event Note ---
General Surgery Progress Note Chief complaint This patient is a 65-year-old man with a history of a necrotizing soft tissue infection of the left lower extremity treated with extensive debridement and split thickness skin graft by Dr. Flores on 07/31/2016 who is readmitted with altered mental status last night to the CCU. Interval history The patient was transferred to telemetry yesterday. He has no new complaints today. Physical exam The patient is afebrile with normal vital signs He is oriented 3 this morning. His donor sites on both his thighs are clean with no erythema or drainage that significant. The left lower extremity dressing was taken down all the way to the Xeroform gauze. There is no significant drainage from the wound and there is no erythema. Labs Reviewed, as above Imaging Reviewed, as above Assessment and plan I will continue doing wound care myself on this for skin graft. Continue current care. Dr. Flores will be back on Saturday
--- NOTE | 2016-08-04 11:31 | Cardiology Progress Note ---
Assessment and Plan (1) Atrial fibrillation Status: Chronic Assessment and plan: 08/04: His rates are reasonably well controlled and we are going to continue his current medicines. Current Visit: Yes Qualifiers: Atrial fibrillation type: chronic Qualified Code(s): I48.2 - Chronic atrial fibrillation (2) Hypertension Status: Chronic Current Visit: No Qualifiers: Hypertension type: essential hypertension Qualified Code(s): I10 - Essential (primary) hypertension Cardiology - PN: Subj Interval history: Patient well known to me with a history of atrial fibrillation recurring congestive heart failure history of cirrhosis of the liver and we have followed him for some time with recurrent heart failure dyspnea and A. fib RVR. He is now postop skin graft for necrotizing fasciitis. He is resolving that issue and was noted to be dig toxic and was having some problems with weakness. He seems to be gaining his strength back. We are holding his Lanoxin at this point. Exam (Progress Note) - Constitutional Vitals: Period Temp Pulse Resp BP Sys/Collins Pulse Ox Last 24 Hr 96.5 F-98.8 F 72-121 15-24 95-135/62-85 96-100 Exam: General:no acute distress. alert and oriented, mood and affect are normal HEENT: no new lesions, sclerae are clear, mouth and pharynx benign Neck: supple, trachea midline, no JVD noted Lungs: no rales ronchi or wheeze is noted. pt comfortable without accesory muscle use to assist with breathing CV: Irregularly irregular rate and rhythm no murmur rub or gallop is noted. Abd: soft and nontender, BSNA, no masses. Ext: no cyanosis, clubbing or edema Neuro: grossly intact without focal neurologic deficit. Result/EKG - Labs CBC & BMP: 08/04/16 04:31 08/04/16 04:31 Labs: Laboratory Results - last 24 hr 08/03/16 08/03/16 08/03/16 10:52 11:39 13:52 WBC RBC Hgb Hct MCV MCH MCHC RDW Plt Count MPV Neut % (Auto) Lymph % (Auto) [place] % (Auto) Eos % (Auto) Baso % (Auto) Neut # (Auto) Lymph # (Auto) [place] # (Auto) Eos # (Auto) Baso # (Auto) Immature Gran % Nucleated RBC % Immature Gran # Nucleated RBCs # Sodium Potassium Chloride Carbon Dioxide Anion Gap BUN Creatinine GFR Calculation BUN/Creatinine Ratio Glucose POC Glucose 138 H Calculated Osmolality Calcium Magnesium Ammonia Urine Color Yellow Urine Appearance Slightly hazy Urine pH 5.0 Ur Specific [place] 1.018 Urine Protein Negative Urine Glucose (UA) Negative Urine Ketones Negative Urine Blood Negative Urine Nitrate Negative Urine Bilirubin Negative Urine Urobilinogen < 2.0 H Urine Leukocytes Negative Urine RBC <1 Urine WBC 2 Ur Squamous Epith Cells Occasional Urine Bacteria Occasional Ur Culture Indicated? Not indicated Peritoneal WBC 66 Peritoneal RBC [address] 10 Periton Neutrophils 50 Periton Lymphocytes 50 Peritoneal Albumin Digoxin 08/03/16 08/03/16 08/04/16 17:16 Unknown 00:56 WBC RBC Hgb Hct MCV MCH MCHC RDW Plt Count MPV Neut % (Auto) Lymph % (Auto) [place] % (Auto) Eos % (Auto) Baso % (Auto) Neut # (Auto) Lymph # (Auto) [place] # (Auto) Eos # (Auto) Baso # (Auto) Immature Gran % Nucleated RBC % Immature Gran # Nucleated RBCs # Sodium Potassium Chloride Carbon Dioxide Anion Gap BUN Creatinine GFR Calculation BUN/Creatinine Ratio Glucose POC Glucose 125 H 128 H Calculated Osmolality Calcium Magnesium Ammonia Urine Color Urine Appearance Urine pH Ur Specific [place] Urine Protein Urine Glucose (UA) Urine Ketones Urine Blood Urine Nitrate Urine Bilirubin Urine Urobilinogen Urine Leukocytes Urine RBC Urine WBC Ur Squamous Epith Cells Urine Bacteria Ur Culture Indicated? Peritoneal WBC Peritoneal RBC Periton Tot Cells Ct Periton Neutrophils Periton Lymphocytes Peritoneal Albumin 0.3 Digoxin 08/04/16 08/04/16 08/04/16 04:31 04:31 04:31 WBC 7.3 RBC 2.74 L Hgb 8.6 L Hct 25.7 L MCV 93.8 MCH 31 MCHC 33.5 RDW 15.4 Plt Count 129 L D MPV 9.4 L Neut % (Auto) 69.5 Lymph % (Auto) 18.1 L [place] % (Auto) 8.1 Eos % (Auto) 3.3 Baso % (Auto) 0.5 Neut # (Auto) 5.1 Lymph # (Auto) 1.3 L [place] # (Auto) 0.6 Eos # (Auto) 0.2 Baso # (Auto) 0.0 Immature Gran % 0.5 Nucleated RBC % 0.3 Immature Gran # 0.04 Nucleated RBCs # 0.02 Sodium 139 Potassium 4.0 Chloride 108 H Carbon Dioxide 19 L Anion Gap 16.0 H BUN 20 H Creatinine 1.40 H GFR Calculation 78 BUN/Creatinine Ratio 14.00 Glucose 107 H POC Glucose Calculated Osmolality 279.5 Calcium 8.0 L Magnesium 1.6 L Ammonia 54 H Urine Color Urine Appearance Urine pH Ur Specific [place] Urine Protein Urine Glucose (UA) Urine Ketones Urine Blood Urine Nitrate Urine Bilirubin Urine Urobilinogen Urine Leukocytes Urine RBC Urine WBC Ur Squamous Epith Cells Urine Bacteria Ur Culture Indicated? Peritoneal WBC Peritoneal RBC Periton Tot Cells Ct Periton Neutrophils Periton Lymphocytes Peritoneal Albumin Digoxin 2.50 H* 08/04/16 06:31 WBC RBC Hgb Hct MCV MCH MCHC RDW Plt Count MPV Neut % (Auto) Lymph % (Auto) [place] % (Auto) Eos % (Auto) Baso % (Auto) Neut # (Auto) Lymph # (Auto) [place] # (Auto) Eos # (Auto) Baso # (Auto) Immature Gran % Nucleated RBC % Immature Gran # Nucleated RBCs # Sodium Potassium Chloride Carbon Dioxide Anion Gap BUN Creatinine GFR Calculation BUN/Creatinine Ratio Glucose POC Glucose 171 H Calculated Osmolality Calcium Magnesium Ammonia Urine Color Urine Appearance Urine pH Ur Specific [place] Urine Protein Urine Glucose (UA) Urine Ketones Urine Blood Urine Nitrate Urine Bilirubin Urine Urobilinogen Urine Leukocytes Urine RBC Urine WBC Ur Squamous Epith Cells Urine Bacteria Ur Culture Indicated? Peritoneal WBC Peritoneal RBC Periton Tot Cells Ct Periton Neutrophils Periton Lymphocytes Peritoneal Albumin Digoxin
--- NOTE | 2016-08-04 11:54 | Gastrointestinal Progress Note ---
Assessment and Plan - Time spent with patient Time spent with patient: Greater than 30 minutes (1) Alcoholic cirrhosis of liver with ascites Status: Acute Current Visit: Yes (2) Encephalopathy acute Status: Acute Current Visit: Yes (3) Other specified counseling Status: Acute Current Visit: Yes Exam (Progress Note) - Constitutional Vitals: Period Temp Pulse Resp BP Sys/Collins Pulse Ox Last 24 Hr 96.5 F-98.8 F 72-121 15-24 95-135/62-85 96-100 Results - Labs CBC & BMP: 08/04/16 04:31 08/04/16 04:31 Note Addendum: PLEASE NOTE -- automatic citation of patient information is unavoidable in this electronic note. I have made a reasonable effort to review the information cited , but it is not a part of my evaluation, impression, or recommendation unless specifically discussed in the dictated text that follows. As well, voice recognition software was used in the creation of this clinical note. Reasonable effort was made to identify and correct gross errors. Despite proofreading, errors in fish roe processor may be present, including nonsense verbiage at times. If you encounter such an error, please contact me at for discussion and correction. -- Hal Chief complaint: cirrhosis Subjective: the patient is a 65-year-old male seen for follow-up of alcoholic cirrhosis with ascites. The patient underwent paracentesis yesterday with no evidence of spontaneous bacterial peritonitis and serum-ascites albumin gradient >1.1 consistent with portal hypertensive ascites. No bowel movements are noted overnight. Blood counts have remained stable. Electrolytes are relatively improved. The patient is very clear this morning, alert and oriented to person, place, and time. Medications: allopurinol, aspirin, insulin, lactulose, Synthroid, magnesium oxide, Zofran, Percocet, Protonix, Zosyn, Rifaximin, vancomycin Review of Symptoms: 12 point review of symptoms was negative except as noted above Physical examination: Vital Signs: Current vital signs reviewed. General Appearance: well-appearing. Not acutely ill. Head: Normocephalic. Eyes: no scleral icterus. No scleral injection. No conjunctival pallor. Oral Cavity: Odor of breath was normal. No drooling was observed. Lips showed no abnormalities. Lungs: Respiration rhythm and depth was normal. Cardiovascular: Heart rate and rhythm were normal. Abdomen: abdomen was distended with ascites but not tense. Abdominal auscultation revealed no abnormalities. Ascites was discovered. Abdominal palpation revealed no tenderness and no hepatosplenomegaly. Musculoskeletal System: musculoskeletal system was grossly normal. Neurological: level of consciousness was normal. Speech was normal. No coordination/cerebellum abnormalities were noted. Skin: Gen. appearance was normal. Color and pigmentation were normal. No skin lesions were appreciated. Laboratory: white blood count 7.3, hemoglobin 8.6, hematocrit 25.7, platelets 129, sodium 139, potassium 4.0, chloride 108, CO2 19, BUN 20, creatinine 1.4, ammonia 54, albumin 2.1, peritoneal white blood cells 66, peritoneal albumin 0.3 Radiology: reviewed with no pertinent changes noted. Impressions: 1. Alcoholic cirrhosis -- the patient does not have evidence of spontaneous bacterial peritonitis. Electrolytes are somewhat improved compared to yesterday. I recommend continued and aggressive volume/electrolyte management with titration of diuretic to maintain reduction of ascites. It goes without saying that the patient must remain abstinent from alcohol. Adequate nutrition ( including adequate protein) is important and nutrition consultation is indicated. I recommend minimization of medication burden to the greatest extent possible. The patient will need to continue to follow up with Dr. Reaves for management of cirrhosis after leaving the hospital. 2. Encephalopathy -- the patient is currently on both lactulose and Rifaximin. He is clear this morning, alert and oriented to person, place, and time. I recommend continuing current therapy. 3. Other specified counseling -- Patient seen for greater than 30 minutes. Greater than 50% of this time was spent counseling regarding differential diagnosis, likely diagnosis,, diagnostic and therapeutic options, risks, benefits, and alternatives to procedures and medications, informed consent, and plan of care generally. Patient has expressed understanding and wishes to proceed. Recommendations: -- aggressive volume and electrolyte management -- nutrition consult -- minimization of medications to whatever extent possible -- continue lactulose and Rifaximin -- we will continue to follow with you.
[2016-08-04] MEDS: MAGNESIUM OXIDE 400 MG TABLET PO SCH (21:09)
[2016-08-05] MEDS: INSULIN LISPRO 100 UNIT/ML SUBCUT SCH ×4 (00:52→18:26)
[2016-08-05] MEDS: oxyCODONE/ACETAMINOPHEN 5-325 MG TABLET PO PRN ×3 (01:55→21:01)
[2016-08-05 05:12] LABS: Basophils % 0.5 % (0.0-0.8); Eosinophils # 0.3 10*3/uL (0.0-0.87); Eosinophils % 3.3 % (0.00-10.9); Hematocrit 27.8 VOL% (42.0-52.0); Hemoglobin 9.4 GM/DL (14.0-18.0); Immature Granulocytes % 0.4 %; Immature Granulocytes Absolute 0.03 #; Lymphocytes # 1.5 10*3/uL (1.4-4.0); Lymphocytes % 19.3 % (21.2-54.2); Mean Corpuscular HGB Conc 33.8 GM/DL (32-36); Mean Corpuscular Hemoglobin 32 PG (27-34); Mean Corpuscular Volume 94.6 FL (87-102); Mean Platelet Volume 9.6 FL (9.6-12.0); Monocytes # 0.6 10*3/uL (0.11-0.8); Monocytes % 8.2 % (1.7-12.7); NRBC # 0.02 10*3/uL; Neutrophils # 5.2 10*3/uL (1.4-7.4); Neutrophils % 68.3 % (38.7-73.9); Platelet Count 155 T/CUMM (130-400); Red Blood Count 2.94 MC/CUMM (3.8-5.5); Red Cell Distribution Width 15.3 % (9.3-17.3); White Blood Count 7.7 T/CUMM (4-12)
[2016-08-05] MEDS: PIPERACILLIN/TAZOBACTAM 3,375 MG in SODIUM CHLORIDE 0.9% 100 ML IV SCH ×3 (05:14→23:17)
[2016-08-05 06:12] LABS: Calcium 7.9 MG/DL (8.5-10.1); Magnesium 2.1 MG/DL (1.8-2.4); Osmolality,Calculated 279.7 MOS/KG (273-304); Potassium 4.1 MMOL/L (3.5-5.1)
[2016-08-05] MEDS: LEVOTHYROXINE 125 MCG TABLET PO SCH (06:25)
--- NOTE | 2016-08-05 09:41 | Gastrointestinal Progress Note ---
Assessment and Plan (1) Alcoholic cirrhosis of liver with ascites Status: Acute Current Visit: Yes (2) Encephalopathy acute Status: Acute Current Visit: Yes (3) Other specified counseling Status: Acute Current Visit: Yes Exam (Progress Note) - Constitutional Vitals: Period Temp Pulse Resp BP Sys/Collins Pulse Ox Last 24 Hr 96.9 F-98.0 F 85-114 18-20 118-131/71-85 95-100 Results - Labs CBC & BMP: 08/05/16 04:48 08/05/16 04:43 Note Addendum: PLEASE NOTE -- automatic citation of patient information is unavoidable in this electronic note. I have made a reasonable effort to review the information cited , but it is not a part of my evaluation, impression, or recommendation unless specifically discussed in the dictated text that follows. As well, voice recognition software was used in the creation of this clinical note. Reasonable effort was made to identify and correct gross errors. Despite proofreading, errors in boot lace cutter machine may be present, including nonsense verbiage at times. If you encounter such an error, please contact me at for discussion and correction. -- Hal Chief complaint: cirrhosis Subjective: the patient is a 65-year-old male seen for follow-up of alcoholic cirrhosis with ascites. One bowel movement is noted overnight. Blood counts have remained stable. Electrolytes have also remained stable. The patient has not been started on diuretic. The patient reports reports feeling pretty well. Medications: allopurinol, aspirin, insulin, lactulose, Synthroid, magnesium oxide, Zofran, Percocet, Protonix, Zosyn, Rifaximin, vancomycin Review of Symptoms: 12 point review of symptoms was negative except as noted above Physical examination: Vital Signs: Current vital signs reviewed. General Appearance: well-appearing. Not acutely ill. Head: Normocephalic. Eyes: no scleral icterus. No scleral injection. No conjunctival pallor. Oral Cavity: Odor of breath was normal. No drooling was observed. Lips showed no abnormalities. Lungs: Respiration rhythm and depth was normal. Cardiovascular: Heart rate and rhythm were normal. Abdomen: abdomen was distended with ascites but not tense. Abdominal auscultation revealed no abnormalities. Ascites was discovered. Abdominal palpation revealed no tenderness and no hepatosplenomegaly. Musculoskeletal System: musculoskeletal system was grossly normal. Neurological: level of consciousness was normal. Speech was normal. No coordination/cerebellum abnormalities were noted. Skin: Gen. appearance was normal. Color and pigmentation were normal. No skin lesions were appreciated. Laboratory: what blood count 7.7, hemoglobin 9.4, hematocrit 27.8, platelets 155 , digoxin 2.5, ammonia 65 Radiology: reviewed Impressions: 1. Alcoholic cirrhosis -- Electrolytes are stable compared to yesterday. I recommend continued and aggressive volume/electrolyte management with initiation of dual diuretic therapy to maintain reduction of ascites (consider Aldactone and Lasix in a ratio of 5:2). Continue to peer counselor alcohol abstinence. Consult nutrition for both inpatient and outpatient dietary recommendations. I recommend minimization of medication burden to the greatest extent possible. The patient will need to continue to follow up with Dr. Reaves for management of cirrhosis after leaving the hospital. 2. Encephalopathy -- the patient is currently on both lactulose and Rifaximin. He is clear this morning, alert and oriented to person, place, and time. Here's serum ammonia level continues to climb and he admits that he does not like taking the lactulose. I recommend careful monitoring to ensure compliance. 3. Other specified counseling -- Patient seen for greater than 30 minutes. Greater than 50% of this time was spent counseling regarding differential diagnosis, likely diagnosis,, diagnostic and therapeutic options, risks, benefits, and alternatives to procedures and medications, informed consent, and plan of care generally. Patient has expressed understanding and wishes to proceed. Recommendations: -- aggressive volume and electrolyte management -- nutrition consult -- minimization of medications to whatever extent possible -- continue lactulose and Rifaximin -- we will continue to follow with you. Dr. Reaves will resume G.I. care for this patient tomorrow.
[2016-08-05] MEDS: MAGNESIUM OXIDE 400 MG TABLET PO SCH ×2 (09:51→21:02)
[2016-08-05] MEDS: ASPIRIN EC 81 MG TABLET PO SCH (09:51)
[2016-08-05] MEDS: LACTULOSE 20 GM/30 ML UDCUP PO SCH ×2 (09:51→21:01)
[2016-08-05] MEDS: PANTOPRAZOLE 40 MG TABLET PO SCH (09:51)
[2016-08-05] MEDS: DESITIN 4OZ/NYSTATIN 15 GRAM MIXTURE PASTE TOP SCH ×2 (09:52→21:01)
[2016-08-05] MEDS: RIFAXIMIN 550 MG TABLET PO SCH ×2 (09:52→21:04)
[2016-08-05] MEDS: ALLOPURINOL 300 MG TABLET PO SCH ×2 (09:52→21:02)
--- NOTE | 2016-08-05 09:58 | Hospitalist Progress Note ---
Assessment and Plan - Time spent with patient Time spent with patient: Less than 30 minutes (1) Alcoholic cirrhosis of liver with ascites Status: Acute Assessment and plan: 08/04/16: Patient has long-standing history of cirrhosis with ascites. He has recently had paracentesis 6.8 L. At this time he has no further complaints. 08/05/16: Patient has been followed by GI. He is symptomatically better. Continuing current care. Current Visit: Yes (2) Thrombocytopenia Status: Chronic Assessment and plan: Patient has thrombocytopenia without evidence of bleeding. We will continue to monitor. 08/05/16: Platelets have now normalized at 155,000. Current Visit: No (3) Hypomagnesemia Status: Acute Assessment and plan: 08/04/16: Patient received IV magnesium supplementation today followed by oral replacement daily beginning in the a.m. 08/05/16: Patient receiving oral magnesium replacement. Magnesium is within normal limits today. Current Visit: No (4) Atrial fibrillation Status: Chronic Assessment and plan: Patient has chronic atrial fibrillation and rate is controlled. Digoxin level is high which is on hold at this time. Cardiology continues to follow. Current Visit: Yes Qualifiers: Atrial fibrillation type: chronic Qualified Code(s): I48.2 - Chronic atrial fibrillation (5) Hypertension Status: Chronic Assessment and plan: Patient has chronic essential hypertension. He is currently medically stable. Continue current regimen. Current Visit: No Qualifiers: Hypertension type: essential hypertension Qualified Code(s): I10 - Essential (primary) hypertension (6) Diabetes mellitus Status: Chronic Assessment and plan: Patient states he has had no prior history of diabetes prior to hospitalization because of steroid therapy have hyperglycemia. Will continue Accu-Cheks with sliding scale insulin at this time. Current Visit: Yes Qualifiers: Diabetes mellitus type: type 2 Diabetes mellitus complication status: with circulatory complication Diabetes mellitus complication detail: with peripheral angiopathy without gangrene (7) Esophageal varices determined by endoscopy Status: Chronic Assessment and plan: 08/05/16: Patient has prior history of esophageal varices on EGD. Note plans for possible upper endoscopy on Saturday to reevaluate. Current Visit: No (8) Anemia Status: Chronic Assessment and plan: Patient has anemia which is been relatively stable without evidence of bleeding at this time. He has been followed by GI. Note plans for possible upper endoscopy on Saturday. Current Visit: No Qualifiers: Anemia type: unspecified type Qualified Code(s): D64.9 - Anemia, unspecified (9) Digoxin toxicity Status: Acute Assessment and plan: 08/04/16: Digoxin level remains 2.5. We will continue placed on hold. Cardiology is following as well. Current Visit: Yes (10) Hypotension Status: Resolved Assessment and plan: Resolved. Continue to monitor and follow. Current Visit: Yes (11) Hypothyroidism Status: Chronic Assessment and plan: Continuing current thyroid replacement therapy. Current Visit: No Hospitalist: Subjective Interval history: Mr. Turner states he feels much better today. He denies any chest pain, shortness breath, abdominal pain, nausea, vomiting, melena, hematochezia or hematemesis. He does have some loose stool secondary to lactulose. Exam - Constitutional Vitals: Period Temp Pulse Resp BP Sys/Collins Pulse Ox Last 24 Hr 96.9 F-98.0 F 85-114 18-20 118-131/71-85 95-100 General appearance: no acute distress - Head Head exam: Present: normocephalic, atraumatic - Eye Eye exam: Present: EOMI Pupils: Present: HERNANDEZ - ENT ENT exam: Present: normal exam - Neck Neck exam: Present: normal inspection - Respiratory Respiratory exam: Present: clear to auscultation bilaterally - Cardiovascular Cardiovascular exam: Present: regular rate and rhythm - GI/Abdominal GI/Abdominal exam: Present: normal bowel sounds, distended, soft. Absent: tenderness - Extremities Exam Extremities exam: Absent: calf tenderness, edema - Neurological Exam Neurological exam: Present: alert, oriented X3, CN II-XII intact. Absent: motor sensory deficit - Psychiatric Psychiatric exam: Present: normal affect, normal mood. Absent: agitated, anxious - Skin Skin exam: Present: warm, dry, other (Dressing to left anterior thigh) Results - Labs CBC & BMP: 08/05/16 04:48 08/05/16 04:43 Lab Results: I have reviewed the past 24 hour labs
--- NOTE | 2016-08-05 11:43 | Cardiology Progress Note ---
Assessment and Plan (1) Atrial fibrillation Status: Chronic Assessment and plan: 08/04: His rates are reasonably well controlled and we are going to continue his current medicines. 08/05: He continues stable from a cardiac standpoint with atrial fibrillation and a controlled ventricular response. Current Visit: Yes Qualifiers: Atrial fibrillation type: chronic Qualified Code(s): I48.2 - Chronic atrial fibrillation (2) Hypertension Status: Chronic Assessment and plan: 08/05: Blood pressures are reasonably well controlled on current medications. Current Visit: No Qualifiers: Hypertension type: essential hypertension Qualified Code(s): I10 - Essential (primary) hypertension Cardiology - PN: Subj Interval history: Patient is for scope in the a.m. He is overall stable cardiac lewis we will continue his currently. Exam (Progress Note) - Constitutional Vitals: Period Temp Pulse Resp BP Sys/Collins Pulse Ox Last 24 Hr 96.9 F-98.0 F 85-114 18-20 118-131/71-85 95-100 Exam: General:no acute distress. alert and oriented, mood and affect are normal HEENT: no new lesions, sclerae are clear, mouth and pharynx benign Neck: supple, trachea midline, no JVD noted Lungs: no rales ronchi or wheeze is noted. pt comfortable without accesory muscle use to assist with breathing CV: Irregularly irregular rate and rhythm no murmur rub or gallop is noted. Abd: soft and nontender, BSNA, no masses. Ext: no cyanosis, clubbing or edema Neuro: grossly intact without focal neurologic deficit. Result/EKG - Labs CBC & BMP: 08/05/16 04:48 08/05/16 04:43 Labs: Laboratory Results - last 24 hr 08/04/16 08/04/16 08/05/16 12:07 16:56 00:43 WBC RBC Hgb Hct MCV MCH MCHC RDW Plt Count MPV Neut % (Auto) Lymph % (Auto) [place] % (Auto) Eos % (Auto) Baso % (Auto) Neut # (Auto) Lymph # (Auto) [place] # (Auto) Eos # (Auto) Baso # (Auto) Immature Gran % Nucleated RBC % Immature Gran # Nucleated RBCs # Sodium Potassium Chloride Carbon Dioxide Anion Gap BUN Creatinine GFR Calculation BUN/Creatinine Ratio Glucose POC Glucose 158 H 146 H 171 H Calculated Osmolality Calcium Magnesium Ammonia 08/05/16 08/05/16 08/05/16 04:43 04:48 04:48 WBC 7.7 RBC 2.94 L Hgb 9.4 L Hct 27.8 L MCV 94.6 MCH 32 MCHC 33.8 RDW 15.3 Plt Count 155 D MPV 9.6 Neut % (Auto) 68.3 Lymph % (Auto) 19.3 L [place] % (Auto) 8.2 Eos % (Auto) 3.3 Baso % (Auto) 0.5 Neut # (Auto) 5.2 Lymph # (Auto) 1.5 [place] # (Auto) 0.6 Eos # (Auto) 0.3 Baso # (Auto) 0.0 Immature Gran % 0.4 Nucleated RBC % 0.3 Immature Gran # 0.03 Nucleated RBCs # 0.02 Sodium 138 Potassium 4.1 Chloride 107 Carbon Dioxide 18 L Anion Gap 17.1 H BUN 19 H Creatinine 1.40 H GFR Calculation 78 BUN/Creatinine Ratio 13.00 Glucose 145 H POC Glucose Calculated Osmolality 279.7 Calcium 7.9 L Magnesium 2.1 Ammonia 65 H 08/05/16 06:08 WBC RBC Hgb Hct MCV MCH MCHC RDW Plt Count MPV Neut % (Auto) Lymph % (Auto) [place] % (Auto) Eos % (Auto) Baso % (Auto) Neut # (Auto) Lymph # (Auto) [place] # (Auto) Eos # (Auto) Baso # (Auto) Immature Gran % Nucleated RBC % Immature Gran # Nucleated RBCs # Sodium Potassium Chloride Carbon Dioxide Anion Gap BUN Creatinine GFR Calculation BUN/Creatinine Ratio Glucose POC Glucose 138 H Calculated Osmolality Calcium Magnesium Ammonia
[2016-08-05] MEDS: VANCOMYCIN INJ 2,000 MG in SODIUM CHLORIDE 0.9% 500 ML IV SCH (21:01)
[2016-08-06] MEDS: INSULIN LISPRO 100 UNIT/ML SUBCUT SCH ×4 (00:18→17:35)
[2016-08-06] MEDS: PIPERACILLIN/TAZOBACTAM 3,375 MG in SODIUM CHLORIDE 0.9% 100 ML IV SCH (05:26)
[2016-08-06 05:47] LABS: Basophils # 0.1 10*3/uL (0.0-0.2); Basophils % 0.6 % (0.0-0.8); Eosinophils # 0.2 10*3/uL (0.0-0.87); Eosinophils % 2.6 % (0.00-10.9); Hematocrit 27.8 VOL% (42.0-52.0); Hemoglobin 9.3 GM/DL (14.0-18.0); Immature Granulocytes % 0.4 %; Immature Granulocytes Absolute 0.03 #; Lymphocytes # 1.7 10*3/uL (1.4-4.0); Lymphocytes % 20.2 % (21.2-54.2); Mean Corpuscular HGB Conc 33.5 GM/DL (32-36); Mean Corpuscular Hemoglobin 31 PG (27-34); Mean Corpuscular Volume 93.3 FL (87-102); Mean Platelet Volume 9.7 FL (9.6-12.0); Monocytes # 0.7 10*3/uL (0.11-0.8); Monocytes % 7.8 % (1.7-12.7); NRBC # 0.02 10*3/uL; Neutrophils # 5.8 10*3/uL (1.4-7.4); Neutrophils % 68.4 % (38.7-73.9); Platelet Count 159 T/CUMM (130-400); Red Blood Count 2.98 MC/CUMM (3.8-5.5); Red Cell Distribution Width 15.5 % (9.3-17.3); White Blood Count 8.5 T/CUMM (4-12)
[2016-08-06 06:14] LABS: Calcium 8.1 MG/DL (8.5-10.1); Magnesium 1.9 MG/DL (1.8-2.4); Osmolality,Calculated 277.7 MOS/KG (273-304); Potassium 4.2 MMOL/L (3.5-5.1)
[2016-08-06] MEDS: LEVOTHYROXINE 125 MCG TABLET PO SCH (06:41)
--- NOTE | 2016-08-06 06:42 | Gastrointestinal Progress Note ---
Assessment and Plan (1) Alcoholic cirrhosis of liver with ascites Status: Acute Assessment and plan: This patient has a long-standing history of cirrhosis with ascites most recently. He is not having any further dysphagia but does feel confused and with a poor appetite. He is known to have varices by previous scope done by Dr. Ring back in 2014. Is not having active hematemesis will not repeat this upper endoscopy. It is reasonable to have him on some beta-blockade as you do with metoprolol. He has just received a 6.8 L paracentesis and feels improved. We will try and adjust his Lasix dosing so that we can avoid future paracentesis or minimize this to whatever degree is possible. Metolazone has been required in the past in order to get a decent diuresis in this patient. We will continue to watch his electrolytes over the weekend of the paracentesis is taken place. Hopefully the fluid is being sent off for cytology and cell count--hopefully to rule out SBP. 08/06/16--I appreciate Dr. Hong's seeing this patient over the weekend, the patient apparently is doing fairly well post paracentesis, the paracentesis failed to show any evidence of SBP. The fluid numbers are consistent with portal hypertension given the serum albumin gradient of 1.9. He has reaccumulated some fluid but not excessive amounts. Cardiology is following and holding his digoxin for the present time. Current Visit: Yes (2) Encephalopathy acute Status: Acute Assessment and plan: As noted above we are going to rule out pontine is bacterial peritonitis with this most recent tap. We will continue to monitor his ammonia level for the next several days and later his electrolytes as he is having his Lasix/ spironolactone/metolazone adjusted. The patient has a digoxin which is high at this time with suggest putting this on hold as this can certainly add to the encephalopathy. 08/06/16--the patient is having between 2 and 4 bowel movements per day, will recheck his ammonia level tomorrow-- upper GI bleeding can increase the ammonia level from digested blood, so we may be able to back off of this lactulose dosing once he has cleared the present bolus of blood. He is currently getting Xifaxan in addition to the lactulose as well. Current Visit: Yes (3) Esophageal varices without bleeding Status: Acute Assessment and plan: As noted again above the patient did have an EGD done 2014 which showed esophageal varices, will continue to monitor him for black stools and a gross drop in his hematocrit. His hematocrit is certainly dropped since May 2016 when this was 38% and is now down to 26%. Would suggest that he might benefit from upper endoscopy on Saturday looking at the status of these varices. He may need banding at this point. The patient is going to the regular medical floor at this time to room 236. 5/--I think it is reasonable watch this patient over here on telemetry given his atrial fibrillation and need to discontinue the digoxin, as well as his relative acuity with esophageal varices he has had in the past. His hematocrit has been stable over the weekend we will await his upper endoscopy today to look at these varices and see if they require banding. Possible discharge tomorrow if the patient is stable. Current Visit: Yes Gastroenterology - PN: Subj Interval history: No new complaints, patient seems mentally clear at this point. He is having anywhere between 2 and 4 bowel movements per day as is typically seen with a lactulose. Ammonia level last checked yesterday at 65, up slightly from the 49 earlier this admission. We will recheck his ammonia level tomorrow, EGD today pending due to anemia. He is not having any further dysphagia symptoms as was seen by Dr. Ring 2014 when this was last done. He had low-grade varices at that time we will see if these have increased in size, and look for other potential upper GI bleeding sources. Exam (Progress Note) - Constitutional Vitals: Period Temp Pulse Resp BP Sys/Collins Pulse Ox Last 24 Hr 97.4 F-98.9 F 101-118 18-21 104-136/54-93 95-100 General appearance: no acute distress - Head Head exam: Present: normal inspection - Eye Eye exam: Present: EOMI Pupils: Present: HERNANDEZ - Respiratory Respiratory exam: Present: clear to auscultation bilaterally. Absent: rhonchi, stridor, wheezes - Cardiovascular Cardiovascular exam: Present: regular rate and rhythm - GI/Abdominal GI/Abdominal exam: Present: normal bowel sounds, ascites, distended, soft. Absent: tenderness, rebound - Extremities Exam Extremities exam: Present: normal inspection - Neurological Exam Neurological exam: Present: alert, oriented X3, CN II-XII intact. Absent: motor sensory deficit - Psychiatric Psychiatric exam: Present: normal affect, normal mood Results - Labs CBC & BMP: 08/06/16 04:07 08/06/16 04:07
--- NOTE | 2016-08-06 08:48 | Hospitalist Progress Note ---
Assessment and Plan (1) Alcoholic cirrhosis of liver with ascites Status: Acute Assessment and plan: Patient had recent paracentesis removing about 6.[address] Reaves is following case. Current Visit: Yes (2) Thrombocytopenia Status: Chronic Assessment and plan: Patient's platelets are stable at 159 Current Visit: No (3) Hypomagnesemia Status: Acute Assessment and plan: Magnesium is good at 1.9 Current Visit: No (4) Atrial fibrillation Status: Chronic Assessment and plan: Patient remains in atrial fib but is rate controlled Current Visit: Yes Qualifiers: Atrial fibrillation type: chronic Qualified Code(s): I48.2 - Chronic atrial fibrillation (5) Hypothyroidism Status: Chronic Assessment and plan: Continue Synthroid. Current Visit: No (6) Anemia Status: Chronic Assessment and plan: Hemoglobin is stable repeat EGD today Current Visit: No Qualifiers: Anemia type: unspecified type Qualified Code(s): D64.9 - Anemia, unspecified (7) Encephalopathy acute Status: Acute Assessment and plan: Ammonia level 65 continue lactulose Current Visit: Yes (8) Hypotension Status: Resolved Assessment and plan: Patient's blood pressure is good today. Current Visit: Yes (9) Esophageal varices without bleeding Status: Acute Assessment and plan: EGD again today Current Visit: Yes (10) Open wound of both legs with complication Status: Acute Assessment and plan: No evidence of infection stop all antibiotics. Current Visit: No Hospitalist: Subjective Interval history: Patient spelled to get an EGD today. Patient has poor functional status and is been not been out of bed since Saturday. Patient will most likely need rehab even though he says he is going home. History of necrotizing fasciitis. Has grafts to his leg. Exam - Constitutional Vitals: Period Temp Pulse Resp BP Sys/Collins Pulse Ox Last 24 Hr 97.1 F-98.9 F 20-118 18-21 104-136/54-95 95-100 Exam: Heart Rate-[IRR] Lungs-[CTAB, diminished] GI-[+bs soft, NT] Ext-[no edema] Neuro [Motor 4/5], [alert and oriented times 3] psych [normal mood and affect] General [no acute distress] skin wounds covered Results - Labs CBC & BMP: 08/06/16 04:07 08/06/16 04:07 Lab Results: I have reviewed the past 24 hour labs Labs: blood cx times 2 -
--- NOTE | 2016-08-06 09:22 | Operative Note ---
Date of procedure: 08/06/16 Pre-op diagnosis: History of esophageal varices, hematocrit down to 27-->29% Post-op diagnosis: other Procedure: PROCEDURE: Esophagogastroduodenoscopy (EGD) with cold biopsy for pathology REFERRING PHYSICIAN: Anna Spear MD INDICATIONS: This is a patient who has some hepatic encephalopathy and a history of esophageal varices, hematocrit is between 27 percent and 29% to see if there is evidence of recent upper GI bleeding, and determine if banding is required. The patient is under contact precautions for "flesh eating bacteria" in his legs. The prior H&P was reviewed and interrim changes are as noted: No change from GI consultation on 08/03/16 ENDOSCOPIST: Paul Reaves MD ENDOSCOPE: Olympus Video 100 System upper endoscope ASA CLASS: 4 EXAM: CV: regular rate and rhythm respiratory: Clear without wheezes abdominal: active bowel sounds MEDICATION: Per nursing anesthesia protocol, see their notes PROCEDURE: After discussion of the potential risks and benefits of upper endoscopy, the informed consent was obtained. The patient was then placed in the left lateral decubitus position where sedation was achieved as noted above. Esophageal intubation was performed without difficulty, and the endoscope was advanced through the esophagus, stomach and duodenum. A slow withdrawal was then performed with retroflexion in the stomach for careful inspection of the incisura angularis, fundus and cardia. The scope was then returned to a neutral position and withdrawn through the esophagus. The patient tolerated the procedure well and without complication. BIOPSIES: Gastric antrum/body PHOTOGRAPHS: Obtained FINDINGS: Hypopharynx and Larynx: Normal Esohagoscopy Upper and middle thirds: Grade 2 varices Lower third grade 2 varices, question of red red whale sign at the GE junction, possibly associated with an earlier bleed, slight amount of esophagitis here not biopsied Esophogastric junctions: Slight esophagitis, not biopsied, no gross evidence of stricturing or dilation attempted. Gastroscopy: Cardia/Fundus: Mild diffuse nodular gastritis Body: Mild diffuse nodular gastritis, biopsied Antrum and pylorus mild linear gastritis, biopsied Duodenoscopy: Bulb normal Second and third portions: Normal IMPRESSION: Esophageal varices, these have progressed to grade 2 from grade 1 when seen back in 2015. Mild diffuse nodular gastritis with a linear component at the GE junction, status post biopsy (platelets in the 150 range). RECOMMENDATIONS: Follow up for biopsy results in 1-2 weeks by phone [phone] Continue anti-gastroesophageal reflux measures (avoid carbonated and acidic beverages, avoid eating within 2 hours of bedtime, avoid tight fitting clothing , and elevate the front bed posts 6 inches prior to sleeping. This patient will need a beta-hussain prior to leaving, I understand he is already on metoprolol. A nonspecific beta-hussain might be better such as propranolol or Nadalol. Pantoprazole 40 mg daily prior to suppertime. If the patient develops repeated acute upper GI bleed, we will likely do esophageal banding at that point Paul Reaves MD COPY TO: Anna Spear MD Anesthesia: MAC Surgeon / Physician: Paul Reaves Estimated blood loss: minimal Specimens: other (Gastric antrum/body) Condition: stable Disposition: post procedure unit ([facility]I. Suite) Results - Labs CBC & BMP: 08/06/16 04:07 08/06/16 04:07 Discharge Plan - Discharge Medications No Action Metoprolol Tartrate 25 mg PO BID Aspirin [Ecotrin] 81 mg PO DAILY Allopurinol [Zyloprim] 300 mg PO BID Lactulose Liquid [Chronulac] 20 gm PO Q12HR Levothyroxine Tab [Synthroid Tab] 125 mcg PO DAILY@0700 Diltiazem Cd Cap [Cardizem CD] 120 mg PO DAILY Digoxin Tab [Lanoxin Tab] 0.25 mg PO DAILY oxyCODONE/ACETAMINOPHEN 5-325 [Percocet 5-325] 2 tablet PO Q4H PRN #30 tablet PRN Reason: Pain Moderate (4-7) Omeprazole Magnesium [Prilosec] 20 mg PO DAILY - Follow Up or Referral - Forms/Instructions
--- NOTE | 2016-08-06 09:34 | Anesthesia Post-Op ---
Anesthesia Post OP - Post Ansesthetic Evaluation Patient seen in post op: Yes Resp: within normal limits CV: within normal limits Mental: within normal limits Temp: within normal limits Qima-[id number]: within normal limits Nausea and Vomiting: within normal limits Pain: within normal limits
[2016-08-06] MEDS: MAGNESIUM OXIDE 400 MG TABLET PO SCH ×2 (10:33→21:26)
[2016-08-06] MEDS: ASPIRIN EC 81 MG TABLET PO SCH (10:33)
[2016-08-06] MEDS: RIFAXIMIN 550 MG TABLET PO SCH ×2 (10:34→21:26)
[2016-08-06] MEDS: PANTOPRAZOLE 40 MG TABLET PO SCH (10:34)
[2016-08-06] MEDS: ALLOPURINOL 300 MG TABLET PO SCH ×2 (10:34→21:26)
[2016-08-06] MEDS: LACTULOSE 20 GM/30 ML UDCUP PO SCH ×4 (10:34→21:26)
--- NOTE | 2016-08-06 11:15 | XRay Report ---
Portable chest Date: 08/06/2016 Clinical history: Shortness of breath Comparison: 08/02/2016 Technique: Portable AP sitting chest Findings: The heart appears smaller in size. Chronic scarring in the lungs with reduced atelectasis at the lung bases. Residual pleural thickening laterally in the right hemithorax with prior right thoracotomy. Stable mediastinum and osseous structures. Impression: The heart is smaller in size with chronic scarring. Reduced atelectasis at the lung bases with chronic right pleural thickening. PROCEDURE INTERPRETED AT [facility] DEPARTMENT OF RADIOLOGY Final Report Signed by: Dr. Veena Alvarez
[2016-08-06] MEDS ORDERED: PROPOFOL 200 MG/20 ML VIAL IV ONE (12:00)
[2016-08-06] MEDS ORDERED: LIDOCAINE 100 MG/5 ML SYRINGE ONE (12:00)
[2016-08-06] MEDS ORDERED: ETOMIDATE 20 MG/10 ML VIAL IV ONE (12:00)
[2016-08-06] MEDS: DESITIN 4OZ/NYSTATIN 15 GRAM MIXTURE PASTE TOP SCH ×2 (12:45→21:31)
--- NOTE | 2016-08-06 13:43 | Event Note ---
Patient seen in dressing change. He still lethargic from EGD earlier today. He has apparently much improved since his admission. Skin graft site was examined and he has had approximately an 80-90% take of the graft. It has been really bandaged by me. I will plan to change the dressing again on Saturday if he is still here. If not he can follow-up with me on Saturday in the office for dressing change. Donor sites look good as well.
--- NOTE | 2016-08-06 16:35 | Cardiology Progress Note ---
Assessment and Plan - Time spent with patient Time spent with patient: Less than 30 minutes (1) Atrial fibrillation Status: Chronic Assessment and plan: SEE PLAN OF CARE LISTED BELOW. Current Visit: Yes Qualifiers: Atrial fibrillation type: chronic Qualified Code(s): I48.2 - Chronic atrial fibrillation (2) Hypertension Status: Chronic Assessment and plan: SEE PLAN OF CARE LISTED BELOW. Current Visit: No Qualifiers: Hypertension type: essential hypertension Qualified Code(s): I10 - Essential (primary) hypertension (3) CKD (chronic kidney disease) Status: Chronic Assessment and plan: SEE PLAN OF CARE LISTED BELOW. Current Visit: Yes Qualifiers: Chronic kidney disease stage: stage 3 (moderate) Qualified Code(s): N18.3 - Chronic kidney disease, stage 3 (moderate) (4) Obstructive sleep apnea Status: Chronic Assessment and plan: SEE PLAN OF CARE LISTED BELOW. Current Visit: Yes (5) Hepatitis Status: Chronic Assessment and plan: SEE PLAN OF CARE LISTED BELOW. Current Visit: Yes Cardiology - PN: Subj Interval history: CASH ACCOUNTANT: DR. RIZVI PCP: DR. BUSH Mr. Turner, 65WM, with known history of atrial fibrillation, cirrhosis of the liver related to alcohol abuse, esophageal varices and anemia, obstructive sleep apnea, chronic kidney disease. 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 History of partial right pneumonectomy. Last cardiac catheterization occurred July 24, 2010 : No evidence of significant fixed coronary obstruction, successful cardioversion to sinus rhythm. Last echocardiogram July 24, 2013: EF 55%, mild MR. RVSP 42 mmHg, right-sided chambers dilated, dilated left atrium. Mr. Turner underwent EGD today with Dr. Reaves and was found to have grade 2 esophageal varices and mild diffuse nodular gastritis. From a cardiac standpoint , he is stable. He is drowsy upon exam today s/p EGD. He is borderline hypotensive this afternoon. If his blood pressure is better in the morning, we may be able to reintroduce his beta hussain. GI would prefer a more nonspecific beta hussain, so we will try to start him on propanolol and see if he will tolerate this. Dr. Ochoa to follow with further plan and addendum. ASSESSMENT/PLAN: 1. ATRIAL FIBRILLATION, CHRONIC - He is stable from a cardiac standpoint. He remains in atrial fibrillation with controlled ventricular response. He is not a candidate for anticoagulation due to his history of esophageal varices and anemia. 2. HYPERTENSION - Blood pressures are currently well controlled on the current therapy. 3. CKD STAGE III - Creatinine 1.5. Following BMP. 4. PATTI - Reiterated use of CPAP machine. 5. HEPATITIS - GI is following. Exam (Progress Note) - Constitutional Vitals: Period Temp Pulse Resp BP Sys/Collins Pulse Ox Last 24 Hr 97.1 F-98.9 F 20-118 18-21 103-136/54-95 95-100 Exam: General: Present: Appears Well, No Apparent Distress. Pleasant and cooperative. Drowsy. Appears comfortable. HEENT: Present: PERRL, Normocephaly, atraumatic. Mucus Membranes Moist. No jaundice noted. Conjunctiva moist and clear, sclerae anicteric Neck: Present: Supple Neck, Midline Trachea, No Masses, No Bruit, No tenderness Cardiac: Present: Irregular Rate and Rhythm, No Murmur Lungs: Present: Clear to auscultation bilaterally, no wheeze, rhonchi, rales. Neuro: Present: Alert and oriented x3. Moves all extremities well without hemiparesis or paralysis. Grossly Intact. Absent: Resting Tremor, Essential Tremor Abdomen: Present: Soft, Active Bowel Sounds, No Masses, Non-Tender, nondistended. No abdominal bruit or thrill noted. Skin: Present: Clear. Absent: Rash. Musculoskeletal: Present: No Fluid Collection, No Pain, Normal Range of Motion Extremities: Present: Normal Gait, No Clubbing, No Cyanosis, Upper Extr. Pulses 2+, Lower Extr. Pulses 2+, No edema. Capillary refill less than 3 seconds. Result/EKG - Labs CBC & BMP: 08/06/16 04:07 08/06/16 04:07 Lab Results: I have reviewed the past 24 hour labs Labs: Laboratory Results - last 24 hr 08/05/16 08/05/16 08/06/16 16:41 20:43 00:07 WBC RBC Hgb Hct MCV MCH MCHC RDW Plt Count MPV Neut % (Auto) Lymph % (Auto) Woodson % (Auto) Eos % (Auto) Baso % (Auto) Neut # (Auto) Lymph # (Auto) Woodson # (Auto) Eos # (Auto) Baso # (Auto) Immature Gran % Nucleated RBC % Immature Gran # Nucleated RBCs # Sodium Potassium Chloride Carbon Dioxide Anion Gap BUN Creatinine GFR Calculation BUN/Creatinine Ratio Glucose POC Glucose 151 H 143 H Calculated Osmolality Calcium Magnesium Vancomycin Trough 22.0 H Digoxin 08/06/16 08/06/16 08/06/16 04:07 04:07 04:07 WBC 8.5 RBC 2.98 L Hgb 9.3 L Hct 27.8 L MCV 93.3 MCH 31 MCHC 33.5 RDW 15.5 Plt Count 159 MPV 9.7 Neut % (Auto) 68.4 Lymph % (Auto) 20.2 L Woodson % (Auto) 7.8 Eos % (Auto) 2.6 Baso % (Auto) 0.6 Neut # (Auto) 5.8 Lymph # (Auto) 1.7 Woodson # (Auto) 0.7 Eos # (Auto) 0.2 Baso # (Auto) 0.1 Immature Gran % 0.4 Nucleated RBC % 0.2 Immature Gran # 0.03 Nucleated RBCs # 0.02 Sodium 138 Potassium 4.2 Chloride 107 Carbon Dioxide 18 L Anion Gap 17.2 H BUN 17 Creatinine 1.50 H GFR Calculation 72 BUN/Creatinine Ratio 11.00 Glucose 113 H POC Glucose Calculated Osmolality 277.7 Calcium 8.1 L Magnesium 1.9 Vancomycin Trough Digoxin 1.20 08/06/16 08/06/16 05:57 08:04 WBC RBC Hgb Hct MCV MCH MCHC RDW Plt Count MPV Neut % (Auto) Lymph % (Auto) Woodson % (Auto) Eos % (Auto) Baso % (Auto) Neut # (Auto) Lymph # (Auto) Woodson # (Auto) Eos # (Auto) Baso # (Auto) Immature Gran % Nucleated RBC % Immature Gran # Nucleated RBCs # Sodium Potassium Chloride Carbon Dioxide Anion Gap BUN Creatinine GFR Calculation BUN/Creatinine Ratio Glucose POC Glucose 126 H 129 H Calculated Osmolality Calcium Magnesium Vancomycin Trough Digoxin - EKG EKG results: interpreted by me EKG shows: atrial fibrillation
[2016-08-06] MEDS ORDERED: VANCOMYCIN INJ 1,750 MG in SODIUM CHLORIDE 0.9% 500 ML IV SCH (21:00)
[2016-08-07] MEDS: INSULIN LISPRO 100 UNIT/ML SUBCUT SCH ×3 (01:27→14:18)
[2016-08-07 06:13] LABS: Basophils % 0.5 % (0.0-0.8); Eosinophils # 0.2 10*3/uL (0.0-0.87); Eosinophils % 2.6 % (0.00-10.9); Hematocrit 27.6 VOL% (42.0-52.0); Hemoglobin 9.3 GM/DL (14.0-18.0); Immature Granulocytes % 0.5 %; Immature Granulocytes Absolute 0.04 #; Lymphocytes # 1.9 10*3/uL (1.4-4.0); Lymphocytes % 21.9 % (21.2-54.2); Mean Corpuscular HGB Conc 33.7 GM/DL (32-36); Mean Corpuscular Hemoglobin 32 PG (27-34); Mean Corpuscular Volume 93.6 FL (87-102); Mean Platelet Volume 9.8 FL (9.6-12.0); Monocytes # 0.8 10*3/uL (0.11-0.8); Monocytes % 9.6 % (1.7-12.7); NRBC # 0.03 10*3/uL; Neutrophils # 5.7 10*3/uL (1.4-7.4); Neutrophils % 64.9 % (38.7-73.9); Platelet Count 175 T/CUMM (130-400); Red Blood Count 2.95 MC/CUMM (3.8-5.5); Red Cell Distribution Width 15.3 % (9.3-17.3); White Blood Count 8.7 T/CUMM (4-12)
[2016-08-07] MEDS: LEVOTHYROXINE 125 MCG TABLET PO SCH (06:31)
[2016-08-07 06:53] LABS: Magnesium 1.9 MG/DL (1.8-2.4); Potassium 4.3 MMOL/L (3.5-5.1)
[2016-08-07 07:47] VITALS: BP 139/83
[2016-08-07] MEDS: ALLOPURINOL 300 MG TABLET PO SCH (08:54)
[2016-08-07] MEDS: PANTOPRAZOLE 40 MG TABLET PO SCH (08:54)
[2016-08-07] MEDS: LACTULOSE 20 GM/30 ML UDCUP PO SCH ×2 (08:54→15:01)
[2016-08-07] MEDS: RIFAXIMIN 550 MG TABLET PO SCH (08:54)
[2016-08-07] MEDS: ASPIRIN EC 81 MG TABLET PO SCH (08:54)
[2016-08-07] MEDS: MAGNESIUM OXIDE 400 MG TABLET PO SCH (08:54)
[2016-08-07] MEDS: DESITIN 4OZ/NYSTATIN 15 GRAM MIXTURE PASTE TOP SCH (08:55)
[2016-08-07] MEDS ORDERED: METOPROLOL TARTRATE 25 MG TABLET PO SCH (09:00)
--- NOTE | 2016-08-07 09:45 | Discharge Summary ---
Hospital Course - Hospital Course Hospital Course: Mr. Turner is a 65 year old male with a medical history of hypertension, chronic atrial fibrillation, GI bleed, alcoholic cirrhosis, PAD, hypothyroidism, gout presents with altered mental status and hypotension. Patient has a history of necrotizing fasciitis and had skin grafts and sees Dr. Flores. Patient was initially started on Zosyn and vancomycin. White count was normal on admission. Blood cultures 2 are negative no growth. Patient has developed cirrhosis of the liver and a paracentesis was performed on August 03, 2016 and 6800 mL's of fluid was removed. Ascitic fluid from the culture is no growth. Patient is not on anticoagulation for his atrial fib due to anemia and cirrhosis. Dr. Sandoval was consulted from cardiology for management of atrial fib which is now rate controlled. Patient was on digoxin at home and became dig toxic which is now resolved. Patient was also taking diltiazem which is been discontinued. Dr. Reaves from GI was consulted about cirrhosis. Patient cirrhosis is due to alcoholism. Patient's acute encephalopathy was due to elevated ammonia levels. Patient was started on Xifaxan and lactulose. His ammonia level is trending up because of his refusal to take the lactulose. Patient's hemoglobin has been stable an EGD was performed by Dr. Reaves yesterday. Patient had grade 2 varices with diffuse nodular gastritis which was biopsied. No banding was performed. Patient needs to sleep the head of bed elevated and needs to be on Protonix at night and omeprazole during the day. discharge home with home health for wound care, nurse, aide and pt - Time spent with patient Time with patient DS: Greater than 30 minutes (55 min) Diagnosis - Discharge Diagnosis (1) Alcoholic cirrhosis of liver with ascites Status: Acute (2) Thrombocytopenia Status: Chronic (3) Hypomagnesemia Status: Acute (4) Atrial fibrillation Status: Chronic (5) Hypothyroidism Status: Chronic (6) Anemia Status: Chronic (7) Encephalopathy acute Status: Acute (8) Hypotension Status: Resolved (9) Esophageal varices without bleeding Status: Acute (10) Open wound of both legs with complication Status: Acute Discharge Plan - Discharge Data Disposition: Home Health Service Condition at Discharge: Stable Discharge Diet: diabetic diet Activity: resume usual activities as tolerated Hygiene: no restrictions Weight Bearing at Discharge: full weight bearing - Discharge Medications New Metoprolol Tartrate Tab [Lopressor Tab] 50 mg PO BID #60 tablet Pantoprazole Tab [Protonix Tab] 40 mg PO BEDTIME #30 tablet Magnesium Oxide 400 mg PO BID #60 tablet Rifaximin [Xifaxan] 550 mg PO BID #60 tablet Continue Aspirin [Ecotrin] 81 mg PO DAILY Allopurinol [Zyloprim] 300 mg PO BID Levothyroxine Tab [Synthroid Tab] 125 mcg PO DAILY@0700 oxyCODONE/ACETAMINOPHEN 5-325 [Percocet 5-325] 2 tablet PO Q4H PRN #30 tablet PRN Reason: Pain Moderate (4-7) Omeprazole Magnesium [Prilosec] 20 mg PO DAILY Changed Lactulose Liquid [Chronulac] 20 gm PO TID #2700 ml Discontinued Metoprolol Tartrate 25 mg PO BID Diltiazem Cd Cap [Cardizem CD] 120 mg PO DAILY Digoxin Tab [Lanoxin Tab] 0.25 mg PO DAILY - Follow Up or Referral Follow Up: dr karen [Other] - 2 Weeks Paul Reaves MD [Physician] - 1 Month Lenny Ochoa MD [Physician] - 2 Weeks Dwight Flores MD [Physician] - 08/08/16 (this saturday for dressing change ) - Forms/Instructions Additional Discharge Instructions: home health with nurse, pt, wound care. must take lactulose three times a day or he will get confused Exam - Constitutional Vitals: Period Temp Pulse Resp BP Sys/Collins Pulse Ox Last 24 Hr 96.8 F-98.4 F 20-127 16-20 103-139/63-83 95-100 General appearance: normal weight, no acute distress - Respiratory Respiratory exam: Present: clear to auscultation bilaterally. Absent: rhonchi, wheezes - Cardiovascular Cardiovascular exam: Present: regular rate and rhythm. Absent: systolic murmur - GI/Abdominal GI/Abdominal exam: Present: normal bowel sounds, soft. Absent: tenderness - Extremities Exam Extremities exam: Present: normal inspection, normal capillary refill Discharge Results Procedures and tests throughout hospitalization: Pending Orders 08/03/16 10:52 Cytology Request Routine 08/08/16 04:00 Ammonia IN AM BMP w/ Mg [Basic Metabolic Panel w/Mg] IN AM CBC [Comp Blood Count Auto Diff] IN AM 08/09/16 04:00 BMP w/ Mg [Basic Metabolic Panel w/Mg] IN AM 08/10/16 04:00 BMP w/ Mg [Basic Metabolic Panel w/Mg] IN AM Labs on day of discharge: Labs from last 24 hours 08/07/16 08/07/16 08/07/16 05:36 05:36 05:36 WBC 8.7 RBC 2.95 L Hgb 9.3 L Hct 27.6 L MCV 93.6 MCH 32 MCHC 33.7 RDW 15.3 Plt Count 175 MPV 9.8 Neut % (Auto) 64.9 Lymph % (Auto) 21.9 [place] % (Auto) 9.6 Eos % (Auto) 2.6 Baso % (Auto) 0.5 Neut # (Auto) 5.7 Lymph # (Auto) 1.9 [place] # (Auto) 0.8 Eos # (Auto) 0.2 Baso # (Auto) 0.0 Immature Gran % 0.5 Nucleated RBC % 0.3 Immature Gran # 0.04 Nucleated RBCs # 0.03 Sodium 136 Potassium 4.3 Chloride 107 Carbon Dioxide 16 L Anion Gap 17.3 H BUN 19 H Creatinine 1.60 H GFR Calculation 67 BUN/Creatinine Ratio 11.00 Glucose 134 H POC Glucose Calculated Osmolality 275.0 Calcium 8.0 L Magnesium 1.9 Ammonia 66 H 08/07/16 08/07/16 08/06/16 05:13 01:24 21:05 WBC RBC Hgb Hct MCV MCH MCHC RDW Plt Count MPV Neut % (Auto) Lymph % (Auto) [place] % (Auto) Eos % (Auto) Baso % (Auto) Neut # (Auto) Lymph # (Auto) [place] # (Auto) Eos # (Auto) Baso # (Auto) Immature Gran % Nucleated RBC % Immature Gran # Nucleated RBCs # Sodium Potassium Chloride Carbon Dioxide Anion Gap BUN Creatinine GFR Calculation BUN/Creatinine Ratio Glucose POC Glucose 150 H 148 H 129 H Calculated Osmolality Calcium Magnesium Ammonia 08/06/16 08/06/16 17:29 13:00 WBC RBC Hgb Hct MCV MCH MCHC RDW Plt Count MPV Neut % (Auto) Lymph % (Auto) [place] % (Auto) Eos % (Auto) Baso % (Auto) Neut # (Auto) Lymph # (Auto) [place] # (Auto) Eos # (Auto) Baso # (Auto) Immature Gran % Nucleated RBC % Immature Gran # Nucleated RBCs # Sodium Potassium Chloride Carbon Dioxide Anion Gap BUN Creatinine GFR Calculation BUN/Creatinine Ratio Glucose POC Glucose 120 H 137 H Calculated Osmolality Calcium Magnesium Ammonia DS: Provider Date of admission: 08/02/16 19:22 Primary care physician: Steven Álvarez DO Attending physician on admission: Lavern Coyne MD Consults: 08/02/16 20:21 Consult to Pharmacy [CONS] Routine Reason for Pharmacy Consult: Dose/Manage Vancomycin 08/03/16 10:49 Consult to Physician [CONS] Routine Comment: Consulting Provider: Paul Reaves 08/06/16 06:21 Consult to Anesthesiology [CONS] Routine Consulting Provider: Reason for Anesthesiology: Pre-op Clearance 08/06/16 08:16 Consult to Case Mgmt/Social Srvs [CONS] Routine Reason for Case Mgmt/Social Srvs: Rehab Consult to Occupational Therapy [CONS] Routine Reason for Occupational Therapy: Evaluate and Treat Start Therapy: Today Consult to Physical Therapy [CONS] Routine Reason for Physical Therapy: Evaluate and Treat Start Therapy: Today 08/06/16 14:12 Consult to Wound Care - [place] [CONS] Routine Reason for Wound Care: Wound Care Management Consult Comment: left heel wound Discharging clinician: Anna Spear MD
--- NOTE | 2016-08-07 09:54 | Event Note ---
Patient planned discharge today. F/u Dr. Flores clinic tomorrow for wound check. Order to schedule appt has been placed on chart.
[2016-08-07] MEDS: oxyCODONE/ACETAMINOPHEN 5-325 MG TABLET PO PRN (15:13)
--- NOTE | 2016-08-07 16:30 | Gastrointestinal Progress Note ---
Assessment and Plan (1) Alcoholic cirrhosis of liver with ascites Status: Acute Assessment and plan: This patient has a long-standing history of cirrhosis with ascites most recently. He is not having any further dysphagia but does feel confused and with a poor appetite. He is known to have varices by previous scope done by Dr. Ring back in 2014. Is not having active hematemesis will not repeat this upper endoscopy. It is reasonable to have him on some beta-blockade as you do with metoprolol. He has just received a 6.8 L paracentesis and feels improved. We will try and adjust his Lasix dosing so that we can avoid future paracentesis or minimize this to whatever degree is possible. Metolazone has been required in the past in order to get a decent diuresis in this patient. We will continue to watch his electrolytes over the weekend of the paracentesis is taken place. Hopefully the fluid is being sent off for cytology and cell count--hopefully to rule out SBP. 08/06/16--I appreciate Dr. Hong's seeing this patient over the weekend, the patient apparently is doing fairly well post paracentesis, the paracentesis failed to show any evidence of SBP. The fluid numbers are consistent with portal hypertension given the serum albumin gradient of 1.9. He has reaccumulated some fluid but not excessive amounts. Cardiology is following and holding his digoxin for the present time. 08/07/16--The patient is done well but is slowly reaccumulating his fluid. He will need to continue on with his Lasix and spironolactone as an outpatient. Note the metolazone is been required in the past for improved diuresis. Current Visit: Yes (2) Encephalopathy acute Status: Acute Assessment and plan: As noted above we are going to rule out pontine is bacterial peritonitis with this most recent tap. We will continue to monitor his ammonia level for the next several days and later his electrolytes as he is having his Lasix/ spironolactone/metolazone adjusted. The patient has a digoxin which is high at this time with suggest putting this on hold as this can certainly add to the encephalopathy. 08/06/16--the patient is having between 2 and 4 bowel movements per day, will recheck his ammonia level tomorrow-- upper GI bleeding can increase the ammonia level from digested blood, so we may be able to back off of this lactulose dosing once he has cleared the present bolus of blood. He is currently getting Xifaxan in addition to the lactulose as well. 08/07/16--Patient's ammonia level is at 66 today. I suspect that he will be able to back off on some of his lactulose dosing in the next 2-3 days. He has been given a prescription for the Xifaxan 550 mg twice daily. We may be a little back off of the lactulose further if he is doing well as an outpatient when I see him next in clinic. Current Visit: Yes (3) Esophageal varices without bleeding Status: Acute Assessment and plan: As noted again above the patient did have an EGD done 2014 which showed esophageal varices, will continue to monitor him for black stools and a gross drop in his hematocrit. His hematocrit is certainly dropped since May 2016 when this was 38% and is now down to 26%. Would suggest that he might benefit from upper endoscopy on Saturday looking at the status of these varices. He may need banding at this point. The patient is going to the regular medical floor at this time to room 236. 08/06/16--I think it is reasonable watch this patient over here on telemetry given his atrial fibrillation and need to discontinue the digoxin, as well as his relative acuity with esophageal varices he has had in the past. His hematocrit has been stable over the weekend we will await his upper endoscopy today to look at these varices and see if they require banding. Possible discharge tomorrow if the patient is stable. 08/07/16--These varices have advanced from grade 1 to grade 2 from 2014 to present. He is getting Toprol for beta blockade. His hematocrit is stable at this point is about 27. Current Visit: Yes Gastroenterology - PN: Subj Interval history: Patient is seen before discharge, he states that he is "dying for a Coke", he seems mentally in [place] at this point although his ammonia level still 66. I discussed with him the use of his lactulose in addition to Xifaxan started this admission. He is due to come back to clinic in another 1-2 months or so. Exam (Progress Note) - Constitutional Vitals: Period Temp Pulse Resp BP Sys/Collins Pulse Ox Last 24 Hr 96.8 F-98.4 F 87-127 16-20 106-139/63-83 95-100 General appearance: no acute distress - Head Head exam: Present: normocephalic - Eye Eye exam: Present: EOMI Pupils: Present: HERNANDEZ - Respiratory Respiratory exam: Present: clear to auscultation bilaterally. Absent: rhonchi, stridor, wheezes - Cardiovascular Cardiovascular exam: Present: regular rate and rhythm - GI/Abdominal GI/Abdominal exam: Present: normal bowel sounds, ascites, distended, soft. Absent: firm, tenderness, rebound - Extremities Exam Extremities exam: Present: edema (Trace at the ankles) - Neurological Exam Neurological exam: Present: alert, oriented X3, altered (Only a tiny bit of slowing noted today--improved from yesterday) - Psychiatric Psychiatric exam: Present: normal affect, normal mood. Absent: agitated - Skin Skin exam: Present: warm Results - Labs CBC & BMP: 08/07/16 05:36 08/07/16 05:36 Specialty Discharge - Follow Up or Referrals Follow up with: dr karen [Other] - 2 Weeks Dwight Flores MD [Physician] - 08/08/16 (this saturday for dressing change ) Paul Reaves MD [Physician] - 09/06/16 10:45 am Олег Kunz MD [Physician] - 08/27/16 1:10 pm
== END 2016-08-07 16:47 | disposition home health service (06) | DRG 432 ==
LOC: EDUNIT# → EDBD → N.ED 16:23 → N.EDINP 19:22 → SUATTDRO 19:22 → N.EDINP 20:11 → N.CC 21:42 → N.TELEN 08-03 15:34
PROVIDERS: ADMIT Internal Medicine; ATTEND Internal Medicine

== ENCOUNTER 2016-08-23 12:08 | Inpatient (IN) ==
[2016-08-23] MEDS ORDERED: DILTIAZEM 100 MG VIAL.ADD IV STA (12:31)
[2016-08-23] MEDS ORDERED: DILTIAZEM 100 MG VIAL.ADD IV ONE (12:43)
[2016-08-23] MEDS ORDERED: DILTIAZEM 50 MG/10 ML VIAL IV ONE (12:43)
[2016-08-23 12:45] LABS: Basophils # 0.1 10*3/uL (0.0-0.2); Basophils % 0.6 % (0.0-0.8); Eosinophils # 0.1 10*3/uL (0.0-0.87); Hematocrit 29.9 VOL% (42.0-52.0); Hemoglobin 10.5 GM/DL (14.0-18.0); Immature Granulocytes % 0.5 %; Immature Granulocytes Absolute 0.05 #; Lymphocytes # 1.5 10*3/uL (1.4-4.0); Lymphocytes % 13.9 % (21.2-54.2); Mean Corpuscular HGB Conc 35.1 GM/DL (32-36); Mean Corpuscular Hemoglobin 32 PG (27-34); Mean Corpuscular Volume 92.3 FL (87-102); Mean Platelet Volume 9.5 FL (9.6-12.0); Monocytes # 0.8 10*3/uL (0.11-0.8); Monocytes % 7.7 % (1.7-12.7); Neutrophils # 8.3 10*3/uL (1.4-7.4); Neutrophils % 76.3 % (38.7-73.9); Platelet Count 197 T/CUMM (130-400); Red Blood Count 3.24 MC/CUMM (3.8-5.5); White Blood Count 10.8 T/CUMM (4-12)
[2016-08-23] MEDS ORDERED: SODIUM CHLORIDE 0.9% 100 ML IV ONE (12:45)
--- NOTE | 2016-08-23 12:49 | Emergency Department Note ---
Damien Espinoza Brittany, am scribing for, and in the presence of, Abdoul Calderon MD 12: 45. Yumiko Espinoza James D, MD, personally performed the services described in this documentation, ascribed by Kayla Quezada in my presence, and it is both accurate and complete . Arrival - Arrival Chief Complaint: Abdominal / Flank Pain Stated Complaint: afib, abdominal distention ED Nursing Triage Note: c/o nausea and abd destention. +cirrhios of the liver. Mode of Arrival: Stretcher Limitations: No Limitations Source: Patient Time Seen by Provider: 08/23/16 12:26 - History of Present Illness HPI Narrative: This is a 65 y/o white male,who presents to the ED with c/o abdominal pain which started 4 days ago. He reports in the past he was a heavy drinker and now has cirrhosis. He reports abdomen distention, vomiting, and nausea. He states the vomiting has been on and off for the past 3 weeks. He reports so far today he has had 2 BM. He reports some dyspnea but states he has only 1 lung. He reports he had fluid taken off his abdomen over 2 weeks ago. Pt has no other complaints/pain in the ED at this time. Pt has a PMhx of obstructive sleep apnea , prostate cancer, esophageal varices, GERD, cirrhosis, back/neck problems, degenerative disk disease, anemia, A-fib, HTN, PVD, thyroid disorder, GOUT, dyslipidemia, and NIDDM. Pt has had a right lower lobetomy, femoral popliteal bypass graft with stents in the right groin and leg, abd surgery, plate in his back, orthopedic surgery, colonoscopy, EGD, spinal surgery, Left TKR, genitourinary surgery, prostate surgery, and hernia repair. Pt has a family medical Hx of cirrhosis, heart disease, diabetes, HTN, and stroke. Pt denies the use of tobacco products and street drugs. Pt drank heavy in the past but has not quit. Onset (ago): day(s) (Started 4 days ago) Consistency: constant Severity: moderate Allergies/Adverse Reactions: Allergies Allergy/AdvReac Type Severity Reaction Status Date / Time No Known Allergies Allergy Verified 07/31/16 10:00 Home Medications: Home Medications Medication Instructions Recorded Confirmed Type Allopurinol [Zyloprim] 300 mg PO BID 08/19/14 08/02/16 History Aspirin [Ecotrin] 81 mg PO DAILY 08/19/14 08/02/16 History Levothyroxine Tab [Synthroid Tab] 125 mcg PO DAILY@0700 08/19/15 08/02/16 History Omeprazole Magnesium [Prilosec] 20 mg PO DAILY 07/30/16 08/02/16 History Lactulose Liquid [Chronulac] 20 gm PO TID #2700 ml 08/07/16 Rx Magnesium Oxide 400 mg PO BID #60 tablet 08/07/16 Rx Metoprolol Tartrate Tab [Lopressor 50 mg PO BID #60 tablet 08/07/16 Rx Tab] Pantoprazole Tab [Protonix Tab] 40 mg PO BEDTIME #30 tablet 08/07/16 Rx Rifaximin [Xifaxan] 550 mg PO BID #60 tablet 08/07/16 Rx oxyCODONE/ACETAMINOPHEN 5-325 2 tablet PO Q4H PRN #30 tablet 08/07/16 Rx [Percocet 5-325] Review of System - Review of System 12 point system: reviewed and no additional remarkable complaints except as stated - Review of System Cardiovascular: Present: dyspnea on exertion (Mild dyspnea) Gastrointestinal: Present: abdominal pain, nausea, vomiting, diarrhea, other ( Abdominal distention ) Medical,Surgical,& Family Hx - Medical History Cardio: History of: Cardiac Dysrhythmia (atrial fib), Hypertension, PVD ( multiple stents in right leg and groin), Cardiovascular Problems (afib; DR RIZVI) No history of: CAD, DC, Pacemaker Psychological: History of: Anxiety Disorders, Depression Neurology: No history of: Cerebrovascular Accident, Dementia, Seizures, TIA HEENT: History of: Ear Problem (UNGA), Eye Problem ([place]) No history of: Glaucoma Endocrine: History of: Diabetes Mellitus (NIDDM), Dyslipidemia, Thyroid Disorder No history of: Diabetes Mellitus (IDDM) Rheumatology: History of;: Gout (knees, feet, ankles, wrist, and hands) Respiratory: History of: Obstructive Sleep Apnea (USES CPAP AT BEDTIME) No history of: Bronchitis, COPD Genitourinary: History of: Prostate Problems Gastrointestinal: History of: Esophageal Varices, GERD, Gastrointestinal Bleed, Liver Problems (possible cirrhosis-quit drinkin alcohol), GI Problems (dysphagia ) Musculoskeletal: History of: Back/Neck Problems (multiple back surgeries), Degenerative Disk Disease, Musculoskeletal Problems (arthritis) Hematology: History of: Anemia No history of: Blood Transfusion Reaction Other: History of: Cancer (prostate) No history of: Anesthesia Reactions - Surgical History Cardiac Surgeries: Sugical HX of: Femoral-Popliteal Bypass Graft (right groin and right leg with stents) Patient Denies: Cardiac Catheterization, Carotid Endarterectomy Comment Only: Internal Defibrillator (2011- no significant coronary artery disease) Thoracic Surgeries: Surgical HX of;: Lobectomy (right lower lobe) HEENT Surgeries: Patient denies: Carotid Endarterectomy, Eye Surgery, Thyroid Surgery, Tonsilectomy & Adenoidectomy Abdominal Surgeries: Surgical HX of: Abdominal Surgery, Colonoscopy, EGD, Hernia Repair (x2) Patient denies: Appendectomy, Cholecystectomy Reproductive Surgeries: Surgical HX of;: Genitourinary Surgery, Prostate Surgery (prostatectomy.cancer removed 2010 or 2011 in [place]) Orthopedic Surgeries: Surgical HX of;: Implanted Devices (PLATE IN BACK), Orthopedic Surgery (knee surgery x 9, hand (carpatunnel surgery to both hands), shoulder), Spinal Surgery (multiple back surgeries), Total Knee Replacement ( LEFT KNEE REPLACEMENT) - Family History Family History: Reports;: Family Cancer (father-cirrhosis), Family Diabetes ( Father and possibly a sister), Family Heart Disease (DAD,MOM,SISTER), Family Hypertension (DAD,SISTER, BROTHER), Family Stroke (DAD) Denies;: Family Anesthesia Reaction, Family Psychiatric Problems - Social History Smoking Status: Former smoker Frequency of Alcohol Use: Frequently (Has now quit drinking) Type of Drug Use: None Exam Vital Signs: Vital Signs Temperature 98.6 F 08/23/16 12:11 Pulse Rate 107 H 08/23/16 13:03 Respiratory Rate 22 08/23/16 13:03 Blood Pressure 137/95 08/23/16 13:03 O2 Sat by Pulse Oximetry 100 08/23/16 12:11 GENERAL: This is a chronically ill-appearing white male in no apparent distress. VITAL SIGNS: Reviewed HEENT: Head is atraumatic and normocephalic. Pupils are equal round react to light. Extraocular movements are intact. Oropharynx is benign with slightly dry mucous membranes. NECK: Neck is soft and supple without tenderness. There are no masses. There is no lymphadenopathy. LUNGS: Lungs are clear to auscultation. Chest rises symmetrically. There is no chest wall tenderness. CV: Heart is irregularly irregular without murmurs rubs or gallops. ABDOMEN: Abdomen is soft, nontender to palpation distended with caput medusa. There are no abdominal abnormal masses palpated. Bowel sounds are present and active. SKIN: Skin is warm and dry. No rash. EXTREMITIES: Patient has full range of motion without tenderness. There is no pedal edema. NEUROLOGIC: Awake alert and oriented 4. Cranial nerves II through XII are intact. Motor is 5 over 5 in all extremities bilaterally. Deep tendon reflexes are 2+ and bilaterally equal. Course Course Narrative: Patient was given IV fluid bolus and Cardizem bolus and infusion. - Consultations Consultation #1: Discussed with hospitalist. Patient will be admitted to their service. Time: 13:37 Results - Labs CBC & BMP: 08/23/16 12:33 0608 12:33 Lab Results: I have reviewed the patients labs - EKG EKG results: interpreted by ERMD - Impressions EKG: Atrial fibrillation with rapid ventricular response, rate 144, low voltage QRS, old inferior DC. - Diagnostic Findings Procedure: Abdominal x-ray: image reviewed by me (Nonspecific gas pattern, no free air, gas in the rectum.), Chest x-ray: image reviewed by me (Cardiomegaly, no infiltrates, no pleural effusions.) Disposition Clinical Impression: Atrial fibrillation with RVR, Cirrhosis of liver with ascites Case discussed with: patient Disposition: Still a Patient Condition: Stable Time of Disposition: 13:33
[2016-08-23] MEDS ORDERED: DILTIAZEM INJ 100 MG in SODIUM CHLORIDE 0.9% 100 ML IV SCH (13:00)
[2016-08-23] MEDS ORDERED: SODIUM CHLORIDE 0.9% 500 ML IV STA (13:09)
[2016-08-23 13:22] LABS: Albumin 2.1 G/DL (3.4-5.0); Calcium 8.4 MG/DL (8.5-10.1); Magnesium 1.6 MG/DL (1.8-2.4); Osmolality,Calculated 272.1 MOS/KG (273-304); Potassium 4.6 MMOL/L (3.5-5.1); Total Protein 4.9 G/DL (6.4-8.3)
--- NOTE | 2016-08-23 13:30 | XRay Report ---
XR chest 1V portable Indication: Atrial fibrillation Comparison: Chest x-ray dated August 06, 2016 Technique: Single frontal view of the chest. Findings: The cardiomediastinal silhouette is stable in configuration. Chronic change of the lungs without focal consolidation, pleural effusion, or pneumothorax. Visualized osseous and surrounding soft tissue structures appear grossly unchanged. IMPRESSION: Stable chest x-ray without acute cardiopulmonary process demonstrated. PROCEDURE INTERPRETED AT [facility] [place] DEPARTMENT OF RADIOLOGY Final Report Signed by: Dr Nitish London
--- NOTE | 2016-08-23 13:37 | XRay Report ---
XR abdomen complete w decub Indication: Abdominal distention Comparison: Abdominal x-ray dated October 14, 2014 Technique: Frontal views of the abdomen in the supine and lateral decubitus position. Findings: Nonspecific nonobstructive bowel gas pattern. No free intraperitoneal air. Diffuse osteopenia. Bilateral pedicle screws and posterior rods within the lower lumbosacral spine with associated laminectomy change. Stent projects over the distal aorta and right iliac vessels. IMPRESSION: No acute abnormality demonstrated. PROCEDURE INTERPRETED AT [facility] DEPARTMENT OF RADIOLOGY Final Report Signed by: Dr Nitsih London
--- NOTE | 2016-08-23 14:52 | EKG Report ---
Stationary ECG Study [facility] ER Test Date: 08/23/2016 12:20:05 PM Pat Name: ANGELES MARTINEZ Department: Room: 273 Gender: M Senior Functional Analyst: : 1950 Requested by: Rony Fink Order Number: [id number] Reading MD: SHANON RIZVI Intervals [place] Rate: 144 P: 999 SD: 0 QRS: 89 QRSD: 85 T: 263 QT: 249 QTc: 332 Interpretive Statements ATRIAL FIBRILLATION WITH RAPID VENTRICULAR RESPONSE LOW QRS VOLTAGE IN PRECORDIAL LEADS POSSIBLE ANTERIOR MYOCARDIAL INFARCTION, PROBABLY OLD POSSIBLE INFERIOR MYOCARDIAL INFARCTION, OF INDETERMINATE AGE Electronically Signed On 08-23-16 16:14:55 CDT by SHANON RIZVI [email or web address]
[2016-08-23] MEDS ORDERED: METOPROLOL TARTRATE 5 MG/5 ML VIAL IV ONE (15:22)
[2016-08-23] MEDS ORDERED: SODIUM CHLORIDE 0.9% 1,000 ML IV ONE (15:25)
[2016-08-23] MEDS: METOPROLOL TARTRATE 5 MG/5 ML VIAL IV SCH ×6 (15:30→22:21)
[2016-08-23] MEDS ORDERED: FUROSEMIDE 40 MG/4 ML VIAL IM SCH (15:54)
--- NOTE | 2016-08-23 15:59 | Hospitalist History & Physical ---
Assessment and Plan (1) Atrial fibrillation with RVR Status: Acute Assessment and plan: Admit to telemetry. Pt. has sleep apnea and is noncompliant with his CPAP machine. Consult sleep center. Pt. on cardiziem infusion. Consult cardiology in am if rate becomes uncontrolled. TSH in am. Anticoagulant with heparin. Current Visit: Yes (2) Cirrhosis of liver with ascites Status: Chronic Current Visit: Yes (3) Abdominal pain Status: Acute Assessment and plan: Abdominal pain secondary to distention due to liver cirrhosis. GI will be consulted to evaluate. PRN pain medication. Current Visit: No (4) Diabetes mellitus Status: Chronic Assessment and plan: Accuchecks achs. SSI. Hemoglobin A1c Current Visit: No Qualifiers: Diabetes mellitus type: type 2 Diabetes mellitus complication status: with circulatory complication Diabetes mellitus complication detail: with peripheral angiopathy without gangrene (5) Open wounds involving multiple regions of lower extremity Status: Acute Assessment and plan: Consult wound care Current Visit: No History of Present Illness Chief complaint: abdominal pain History of present illness: Mr. Turner is a 65 year old white male with a history of obstructive sleep apnea , prostate cancer, GERD, hypertension, esophageal varices, cirrhosis, degenerative disc disease, A. fib, PVD, hypothyroidism, gout, dyslipidemia, and diabetes that presented to the ED today with complaints of abdominal pain that started about 4 days ago. Patient's and daughter are present at bedside. They report that the patient is a heavy drinker in the past and that he has cirrhosis. They also report that he has had multiple hospitalizations since March with the last being 2-3 weeks ago. Patient stated that his abdomen has become quite distended. Patient states that he has had fluid taken off of his abdomen over 2 weeks ago. Patient also reports significant swelling to his penis and scrotum. Patient is currently being followed by Dr. Schumacher, Dr. Mayer, and Dr. Kunz. After evaluation in the ED patient was found to be in A. fib with RVR. Patient will be admitted to the hospitalist service for further evaluation and treatment. Patient's care discussed with Dr. Fink. We will consult other services (GI, Cards, sleep medicine, wound care) to assist. Home Medications Medication Instructions Recorded Confirmed Type Allopurinol [Zyloprim] 300 mg PO BID 08/19/14 08/23/16 History Aspirin [Ecotrin] 81 mg PO DAILY 08/19/14 08/23/16 History Levothyroxine Tab [Synthroid Tab] 125 mcg PO DAILY@0700 08/19/15 08/23/16 History Omeprazole Magnesium [Prilosec] 20 mg PO DAILY 07/30/16 08/23/16 History Lactulose Liquid [Chronulac] 20 gm PO TID #2700 ml 08/07/16 08/23/16 Rx Magnesium Oxide 400 mg PO BID #60 tablet 08/07/16 08/23/16 Rx Metoprolol Tartrate Tab [Lopressor 50 mg PO BID #60 tablet 08/07/16 08/23/16 Rx Tab] Pantoprazole Tab [Protonix Tab] 40 mg PO BEDTIME #30 tablet 08/07/16 08/23/16 Rx Rifaximin [Xifaxan] 550 mg PO BID #60 tablet 08/07/16 08/23/16 Rx Furosemide [Furosemide] 20 mg PO BID 08/23/16 08/23/16 History Hydrocodone/Acetaminophen 1 tablet PO Q4HR PRN 08/23/16 08/23/16 History [Hydrocodon-Acetaminoph 7.5-325] Allergies Allergy/AdvReac Type Severity Reaction Status Date / Time No Known Allergies Allergy Verified 07/31/16 10:00 Medical,Surgical,& Family Hx - Medical History Cardio: History of: Cardiac Dysrhythmia (atrial fib), Hypertension, PVD ( multiple stents in right leg and groin), Cardiovascular Problems (afib; DR KUNZ) No history of: CAD, [place], Pacemaker Psychological: History of: Anxiety Disorders, Depression Neurology: No history of: Cerebrovascular Accident, Dementia, Seizures, TIA HEENT: History of: Ear Problem ([place]), Eye Problem ([place]) No history of: Glaucoma Endocrine: History of: Diabetes Mellitus (NIDDM), Dyslipidemia, Thyroid Disorder No history of: Diabetes Mellitus (IDDM) Rheumatology: History of;: Gout (knees, feet, ankles, wrist, and hands) Respiratory: History of: Obstructive Sleep Apnea (USES CPAP AT BEDTIME) No history of: Bronchitis, COPD Genitourinary: History of: Prostate Problems Gastrointestinal: History of: Esophageal Varices, GERD, Gastrointestinal Bleed, Liver Problems (possible cirrhosis-quit drinkin alcohol), GI Problems (dysphagia ) Musculoskeletal: History of: Back/Neck Problems (multiple back surgeries), Degenerative Disk Disease, Musculoskeletal Problems (arthritis) Hematology: History of: Anemia No history of: Blood Transfusion Reaction Other: History of: Cancer (prostate) No history of: Anesthesia Reactions - Surgical History Cardiac Surgeries: Sugical HX of: Femoral-Popliteal Bypass Graft (right groin and right leg with stents) Patient Denies: Cardiac Catheterization, Carotid Endarterectomy Comment Only: Internal Defibrillator (2011- no significant coronary artery disease) Thoracic Surgeries: Surgical HX of;: Lobectomy (right lower lobe) HEENT Surgeries: Patient denies: Carotid Endarterectomy, Eye Surgery, Thyroid Surgery, Tonsilectomy & Adenoidectomy Abdominal Surgeries: Surgical HX of: Abdominal Surgery, Colonoscopy, EGD, Hernia Repair (x2) Patient denies: Appendectomy, Cholecystectomy Reproductive Surgeries: Surgical HX of;: Genitourinary Surgery, Prostate Surgery (prostatectomy.cancer removed 2010 or 2011 in [place]) Orthopedic Surgeries: Surgical HX of;: Implanted Devices (PLATE IN BACK), Orthopedic Surgery (knee surgery x 9, hand (carpatunnel surgery to both hands), shoulder), Spinal Surgery (multiple back surgeries), Total Knee Replacement ( LEFT KNEE REPLACEMENT) - Family History Family History: Reports;: Family Cancer (father-cirrhosis), Family Diabetes ( Father and possibly a sister), Family Heart Disease (DAD,MOM,SISTER), Family Hypertension (DAD,SISTER, BROTHER), Family Stroke (DAD) Denies;: Family Anesthesia Reaction, Family Psychiatric Problems - Social History Smoking Status: Unknown if ever smoked Frequency of Alcohol Use: Frequently Type of Drug Use: None Marital Status: Lives With:: Spouse Functional capacity: bed bound - Constitutional Constitutional: Absent: chills, fever(s) - EENT Eyes: Present: loss of vision. Absent: blurry vision Ears: Absent: decreased hearing, ear discharge Nose, mouth and throat: Absent: epistaxis, headache(s) - Cardiovascular Cardiovascular: Present: dyspnea on exertion, edema. Absent: chest pain at rest - Respiratory Respiratory: Absent: cough - Gastrointestinal Gastrointestinal: Absent: nausea, vomiting - Genitourinary Genitourinary: Present: scrotal swelling, other (edematous penis; pt also reports decreased urinary output) - Psychiatric Psychiatric: Present: anxiety, depression Exam - Constitutional Vitals: Period Temp Pulse Resp BP Sys/Collins Pulse Ox Last 24 Hr 96.5 F-98.6 F 107-163 15-22 99-147/52-111 99-100 General appearance: no acute distress, over weight - Head Head exam: Present: normal inspection, normocephalic - Eye Eye exam: Present: EOMI. Absent: scleral icterus Pupils: Present: HERNANDEZ. Absent: fixed - Respiratory Respiratory exam: Present: clear to auscultation bilaterally. Absent: rhonchi - Cardiovascular Cardiovascular exam: Present: irregular rhythm - GI/Abdominal GI/Abdominal exam: Present: ascites, distended, tenderness - Extremities Exam Extremities exam: Present: edema (pitting edema to lower extremity) - Neurological Exam Neurological exam: Present: alert, oriented X3 - Psychiatric Psychiatric exam: Present: normal affect, normal mood - Skin Skin exam: Present: normal color, warm, dry Results - Labs CBC & BMP: 08/23/16 12:33 08/23/16 12:33 Lab Results: I have reviewed the past 24 hour labs
[2016-08-23] MEDS ORDERED: DEXTROSE 50% 25 GM/50 ML VIAL IV PRN (16:02)
[2016-08-23] MEDS ORDERED: GLUCAGON 1 MG VIAL IM PRN (16:02)
[2016-08-23] MEDS: HEPARIN 5,000 UNIT/1 ML VIAL SUBCUT SCH (16:13)
[2016-08-23] MEDS: ONDANSETRON 4 MG/2 ML VIAL IV PRN ×2 (16:17→20:49)
[2016-08-23] MEDS: cefTRIAXone 1,000 MG in SODIUM CHLORIDE 0.9% 100 ML IV SCH (16:28)
--- NOTE | 2016-08-23 16:49 | Hospitalist Progress Note ---
Hospitalist: Subjective Interval history: Assessment: Cirrhosis and ascites suspecting peritonitis. Edema Afib with RVR Plan: I reviewed pt's lab results today. I reviewed pt's XR report and image today. I discussed with pt and his and RN in regarding pt's clinical status today. I saw and examined pt in his room. I agree with history, physical, assessment and plan listed by our ORDER DETAILER. On PE, pt has distended abd with tenderness. Will do US and CT. Strongly suspect peritonitis, will do culture and add IV antibitoics. IR paracentesis ordered. Consult GI. Pt also noted to have Afib with RVR. Will add IV cardizem titration order. Switch PO metoprolol to IV. Add IV lasix. Hope treat underlying disease with control his RVR. If still not controlled, can transfer pt to CCU to increase cardizem titration dosage and consult Cardiology in am. Adm pt for in pt care. Time spent: 55 min. Exam - Constitutional Vitals: Period Temp Pulse Resp BP Sys/Collins Pulse Ox Last 24 Hr 96.5 F-98.6 F 107-163 15-22 99-147/52-111 99-100 Results - Labs CBC & BMP: 08/23/16 12:33 08/23/16 12:33
--- NOTE | 2016-08-23 17:10 | CT Report ---
CT of the abdomen and pelvis without intravenous contrast. Oral contrast was administered. Axial images were obtained with sagittal and coronal reconstructions. Indication: Generalized abdominal pain. Cirrhosis. Prostate cancer. Comparison is made to a previous exam of April 23, 2013. The heart is enlarged. There is a prominent epicardial fat pad. There are areas of scarring present within the lung bases. There is mitral annulus calcification. There is coronary artery calcification. There is a small right pleural effusion, and there is right basilar atelectasis. The liver has decreased in size in the interval, now measuring 16 cm in length, having measured 20 cm in length on the previous study. There is a left lobe predominance, and the borders aren't nodular. A calcified granuloma is present. No intrahepatic biliary ductal dilatation. No discrete mass identified. The lack of contrast does limit the evaluation for the detection of masses. Within the gallbladder, there is layering high density material which may represent milk of calcium or tiny gallstones. The spleen is enlarged with dimensions of 12 x 13.5 x 6 cm, and a splenic index of 972. This is however decreased compared to the previous study. Since the previous exam there has developed a very large amount of ascites present, relatively evenly distributed throughout the abdomen. The abdominal aorta is of normal caliber. Moderate calcific plaque is present, and also extends into the origins of the celiac, SMA, both renal arteries, and both iliac arteries. There is a stent present within the IVC, and right common iliac vein. The kidneys are normal in location. Cortical thinning is present, worse on the right. Within the lateral margin of the right mid pole, there is high density material within a protuberant area, measuring about 2 cm, which probably represents a hemorrhagic cyst. Small nonobstructing kidney stones are also present on the right. On the left, no calcifications or space-occupying mass. The prostate has been removed. The urinary bladder presents a normal appearance. The gastric contours grossly normal. The loops of small intestine are not dilated. Contrast reaches the distal small intestine but not the colon. The colon is not dilated. It is redundant, and contains a considerable amount of gas. No evidence of significant wall thickening or obstruction. The pancreas is quite atrophic with very little tissue remaining. Generalized anasarca has developed. The osseous structures are diffusely demineralized. Postsurgical changes have occurred within the lower lumbar spine. Malalignment is present at L5-S1. Slight anterior wedging is seen at T12 and L1. Impression: 1. Development of a very large amount of ascites. 2. Development of anasarca. 3. Development of a small right pleural effusion. 4. Stable cardiomegaly. 5. Interval decrease in size of the liver, with features suggesting cirrhosis. 6. Milk of calcium versus small stones within the gallbladder. 7. Splenomegaly. 8. Pancreatic atrophy. 9. Right renal calculi. Hemorrhagic or partially calcified cyst on the right kidney. The CT exam was performed using one or more of the following dose reduction techniques: Automated exposure control, adjustment of the mA and/or kV according to patient size, or use of iterative reconstruction technique. PROCEDURE INTERPRETED AT [facility] DEPARTMENT OF RADIOLOGY Final Report Signed by: Dr. Mel Cooper
[2016-08-23] MEDS: metroNIDAZOLE INJ 500 MG in PREMIX 1 EACH IV SCH (17:44)
[2016-08-23] MEDS: INSULIN LISPRO 100 UNIT/ML SUBCUT SCH ×2 (17:45→21:56)
[2016-08-23] MEDS: DILTIAZEM INJ 100 MG in SODIUM CHLORIDE 0.9% 100 ML IV SCH (18:37)
[2016-08-23] MEDS: FUROSEMIDE 100 MG/10 ML VIAL IV SCH (20:48)
[2016-08-23] MEDS: LACTULOSE 20 GM/30 ML UDCUP PO SCH (20:49)
[2016-08-23] MEDS: MAGNESIUM OXIDE 400 MG TABLET PO SCH (20:49)
[2016-08-23] MEDS: PANTOPRAZOLE 40 MG TABLET PO SCH (20:49)
[2016-08-23] MEDS: RIFAXIMIN 550 MG TABLET PO SCH (20:49)
[2016-08-23] MEDS: ALLOPURINOL 300 MG TABLET PO SCH (20:49)
[2016-08-24] MEDS: metroNIDAZOLE INJ 500 MG in PREMIX 1 EACH IV SCH ×3 (00:50→15:53)
[2016-08-24] MEDS: DILTIAZEM INJ 100 MG in SODIUM CHLORIDE 0.9% 100 ML IV SCH ×3 (00:50→19:53)
[2016-08-24] MEDS: HEPARIN 5,000 UNIT/1 ML VIAL SUBCUT SCH ×3 (04:09→15:25)
[2016-08-24] MEDS: METOPROLOL TARTRATE 5 MG/5 ML VIAL IV SCH ×2 (04:10→10:20)
[2016-08-24 04:15] LABS: Basophils # 0.1 10*3/uL (0.0-0.2); Basophils % 0.5 % (0.0-0.8); Eosinophils % 0.4 % (0.00-10.9); Hematocrit 26.8 VOL% (42.0-52.0); Immature Granulocytes % 0.4 %; Immature Granulocytes Absolute 0.04 #; Lymphocytes # 1.5 10*3/uL (1.4-4.0); Lymphocytes % 14.2 % (21.2-54.2); Mean Corpuscular HGB Conc 33.6 GM/DL (32-36); Mean Corpuscular Hemoglobin 31 PG (27-34); Mean Corpuscular Volume 92.7 FL (87-102); Mean Platelet Volume 10.1 FL (9.6-12.0); Monocytes # 0.7 10*3/uL (0.11-0.8); Monocytes % 6.7 % (1.7-12.7); Neutrophils # 8.4 10*3/uL (1.4-7.4); Neutrophils % 77.8 % (38.7-73.9); Platelet Count 179 T/CUMM (130-400); Red Blood Count 2.89 MC/CUMM (3.8-5.5); Red Cell Distribution Width 14.9 % (9.3-17.3); White Blood Count 10.8 T/CUMM (4-12)
[2016-08-24 04:31] LABS: INR 1.1; Partial Thromboplastin Time 32.2 SECS (0-40)
[2016-08-24 04:43] LABS: Albumin 1.8 G/DL (3.4-5.0); Calcium 8.1 MG/DL (8.5-10.1); Osmolality,Calculated 275.8 MOS/KG (273-304); Potassium 4.5 MMOL/L (3.5-5.1); Total Protein 4.3 G/DL (6.4-8.3)
[2016-08-24 04:50] LABS: Free T4 (Free Thyroxine) 1.28 NG/DL (0.76-1.46); Thyroid Stimulating Hormone 1.05 uIU/ml (0.358-3.74)
[2016-08-24 04:59] LABS: Apearance,Urine CLEAR (Clear); Bilirubin,Urine Negative (Negative); Blood, Urine Negative (Negative); Glucose,Urine (UA) Negative (Negative); Hyaline Casts,Urine 5 /LPF (0-3); Ketones,Urine Negative (Negative); Mucus,Urine Occasional /LPF (Occasional); Nitrite,Urine Negative (Negative); Protein,Urine Negative; RBC,Urine <1 /HPF (0-4); Urine Color Amber (Yellow); Urine Specific Gravity 1.018 (1.001-1.035); Urine Urobilinogen < 2.0 EU/DL (0.2-1.0); WBC,Urine 1 /HPF (0-6)
[2016-08-24] MEDS: LEVOTHYROXINE 125 MCG TABLET PO SCH (06:10)
[2016-08-24] MEDS ORDERED: ALBUMIN 25% 12.5 GM in PREMIX 1 EACH IV ONE (08:43)
--- NOTE | 2016-08-24 08:45 | Gastrointestinal Consult Note ---
Assessment and Plan (1) Alcoholic cirrhosis of liver with ascites Status: Acute Assessment and plan: This patient has a history of alcoholic cirrhosis and has had recurrent problems with requiring paracentesis. I am not completely sure why he was released without Lasix with the patient is discontinued this medication as an outpatient. I felt that if his kidneys can handle the load we might want to use metolazone in addition to the Lasix and possibly his spironolactone to control his ascites in the future or at least decrease need for repeat paracentesis. I think with his creatinine 1.4 we certainly have room to move with these diuretics. This may need to wait until we can get his heart rhythm back under control. Current Visit: No (2) Encephalopathy acute Status: Acute Assessment and plan: Continue to watch the ammonia level and use lactulose as needed versus Xifaxan twice daily. We will continue the latter and try and minimize the lactulose he requires on a daily basis. He really does not like that medication at all. Current Visit: No (3) Esophageal varices without bleeding Status: Acute Assessment and plan: The patient has had low-grade varices in the past. He has been taking beta- blockers, his hematocrit is certainly low. I doubt that he is having a variceal bleed as this is not presenting with multiple bloody bowel movements and hematemesis and much worse encephalopathy as might be expected with digested blood. Continue to observe ammonia and keep a tab on the patient's hematocrit to follow this. We may consider doing endoscopy on Saturday if weekend coverage feels this would be helpful. Current Visit: No (4) Anemia Status: Acute Assessment and plan: Decrease in hematocrit to 26%. We will need to continue to watch and will send stools for guaiac positivity, if this drops below 24% may need to consider upper endoscopy with potential banding given the dark stools the patient complains of over the last 3 days. Current Visit: Yes History of Present Illness Chief complaint: Alcoholic cirrhosis with ascites and hepatic encephalopathy, and anemia History of present illness: Mr. Turner is a 65 year old male who is an alcoholic cirrhotic who states to me that his last drink, only drink this year was back in April 2016. History of this time seems unreliable. The patient is come off of her recent swing bed stay over [facility] by report and was home for 3 days and refusing his lactulose when he was last seen approximately a month ago while in the hospital. His ammonia levels in the past have been down as low as 10-24 and this visit have climbed back up into the 66 -->51 range now. His belly is quite large and tense and is undergoing paracentesis at this time--the stencil inspector/radiology team is already up to 9 L higher than the 6.8 that he had had drained off on his last admission approximately a month ago. They will be giving him 25 g of albumin shortly. This had been done on a routine basis in the past. From a synthetic standpoint his liver has been doing fairly well with low transaminases and a slightly elevated alkaline phosphatase to 495- -> 434 with normal bilirubin of 0.9. He remains mildly confused at this time. He does have a history of esophageal varices in the past, grade 1 which were noted on upper endoscopy done by Dr. Ring at the same time he received a dilation for his dysphagia symptoms to 54 [place] by single pass Mendiola dilator on 08/19/14. He states that for the last 3 days he has been having some dark stools. Patient's last colonoscopy was done by me on 08/23/15 with the discovery of multiple polyps in the cecum and ascending and transverse colon all removed by snare polypectomy there were multiple villous polyps noted and the patient will need a repeat colonoscopy in 1 year i.e. this was due to occur last month. His last AFP level was 4.5 which is normal (0-8.3). Ultrasounds have never shown a mass in the liver, but did show the ascites. This patient is required both Lasix and metolazone in the past to control his ascites, when he was last discharged in the hospital he was left off of his Lasix entirely. He states that he did take 1 or 2 doses to make himself feel better during the interim, he was due to follow up with me in the office this coming Saturday. His worsening ascites is likely linked to the lack of diuretics. Unfortunately in the emergency room as the patient was being evaluated he was noted to be in atrial fibrillation with rapid ventricular response. His hematocrit is dropped down to about 26%. He may need a unit of blood before the weekend is over. Home Medications Medication Instructions Recorded Confirmed Type Allopurinol [Zyloprim] 300 mg PO BID 08/19/14 08/23/16 History Aspirin [Ecotrin] 81 mg PO DAILY 08/19/14 08/23/16 History Levothyroxine Tab [Synthroid Tab] 125 mcg PO DAILY@0700 08/19/15 08/23/16 History Omeprazole Magnesium [Prilosec] 20 mg PO DAILY 07/30/16 08/23/16 History Lactulose Liquid [Chronulac] 20 gm PO TID #2700 ml 08/07/16 08/23/16 Rx Magnesium Oxide 400 mg PO BID #60 tablet 08/07/16 08/23/16 Rx Metoprolol Tartrate Tab [Lopressor 50 mg PO BID #60 tablet 08/07/16 08/23/16 Rx Tab] Pantoprazole Tab [Protonix Tab] 40 mg PO BEDTIME #30 tablet 08/07/16 08/23/16 Rx Rifaximin [Xifaxan] 550 mg PO BID #60 tablet 08/07/16 08/23/16 Rx Furosemide [Furosemide] 20 mg PO BID 08/23/16 08/23/16 History Hydrocodone/Acetaminophen 1 tablet PO Q4HR PRN 08/23/16 08/23/16 History [Hydrocodon-Acetaminoph 7.5-325] Allergies Allergy/AdvReac Type Severity Reaction Status Date / Time No Known Allergies Allergy Verified 07/31/16 10:00 Medical,Surgical,& Family Hx - Medical History Cardio: History of: Cardiac Dysrhythmia (atrial fib), Hypertension, PVD ( multiple stents in right leg and groin), Cardiovascular Problems (afib; DR RIZVI) No history of: CAD, [place], Pacemaker Psychological: History of: Anxiety Disorders, Depression Neurology: No history of: Cerebrovascular Accident, Dementia, Seizures, TIA HEENT: History of: Ear Problem ([place]), Eye Problem ([place]) No history of: Glaucoma Endocrine: History of: Diabetes Mellitus (NIDDM), Dyslipidemia, Thyroid Disorder No history of: Diabetes Mellitus (IDDM) Rheumatology: History of;: Gout (knees, feet, ankles, wrist, and hands) Respiratory: History of: Obstructive Sleep Apnea (USES CPAP AT BEDTIME) No history of: Bronchitis, COPD Genitourinary: History of: Prostate Problems Gastrointestinal: History of: Esophageal Varices, GERD, Gastrointestinal Bleed, Liver Problems (possible cirrhosis-quit drinkin alcohol), GI Problems (dysphagia ) Musculoskeletal: History of: Back/Neck Problems (multiple back surgeries), Degenerative Disk Disease, Musculoskeletal Problems (arthritis) Hematology: History of: Anemia No history of: Blood Transfusion Reaction Other: History of: Cancer (prostate) No history of: Anesthesia Reactions - Surgical History Cardiac Surgeries: Sugical HX of: Femoral-Popliteal Bypass Graft (right groin and right leg with stents) Patient Denies: Cardiac Catheterization, Carotid Endarterectomy Comment Only: Internal Defibrillator (2011- no significant coronary artery disease) Thoracic Surgeries: Surgical HX of;: Lobectomy (right lower lobe) HEENT Surgeries: Patient denies: Carotid Endarterectomy, Eye Surgery, Thyroid Surgery, Tonsilectomy & Adenoidectomy Abdominal Surgeries: Surgical HX of: Abdominal Surgery, Colonoscopy, EGD, Hernia Repair (x2) Patient denies: Appendectomy, Cholecystectomy Reproductive Surgeries: Surgical HX of;: Genitourinary Surgery, Prostate Surgery (prostatectomy.cancer removed 2010 or 2011 in [place]) Orthopedic Surgeries: Surgical HX of;: Implanted Devices (PLATE IN BACK), Orthopedic Surgery (knee surgery x 9, hand (carpatunnel surgery to both hands), shoulder), Spinal Surgery (multiple back surgeries), Total Knee Replacement ( LEFT KNEE REPLACEMENT) - Family History Family History: Reports;: Family Cancer (father-cirrhosis), Family Diabetes ( Father and possibly a sister), Family Heart Disease (DAD,MOM,SISTER), Family Hypertension (DAD,SISTER, BROTHER), Family Stroke (DAD) Denies;: Family Anesthesia Reaction, Family Psychiatric Problems - Social History Smoking Status: Unknown if ever smoked Frequency of Alcohol Use: Frequently Type of Drug Use: None Review of systems: Constitutional: Denies fever, chills, poor appetite and mild nausea, but no vomiting/hematemesis Eyes: Denies dry eyes, and scleral icterus HENT: Denies headaches Cardiovascular: Denies acute chest pain and claudication Respiratory: Minimal shortness of breath, but no wheezing/difficulty breathing, denies cough Gastrointestinal: As noted in the HPI Genitourinary: Denies dysuria and hematuria Neurologic: Denies vision loss, and loss of sensation Musculoskeletal: He does have bilateral lower extremity joint swelling, joint stiffness, and muscular weakness Psychiatric: Mild depression but no tyler symptoms Heme-Lymph: He does admit to some easy bruising, but does not have any lymph node enlargement or tenderness, night sweats, or excessive bleeding Allergies-immunologic: Denies pruritus and rhinorrhea Exam - Constitutional Vitals: Period Temp Pulse Resp BP Sys/Collins Pulse Ox Last 24 Hr 96.5 F-98.6 F 77-163 14-22 88-147/52-111 96-100 Exam: Constitutional: Well-developed, well-nourished, alert, and in no acute distress--exam was limited by patient undergoing paracentesis at the time of evaluation. Head and face: Head: Normocephalic atraumatic Eyes: Conjunctiva without injection, no gross scleral icterus, pupils equal and round bilaterally Ears: Intact to conversation in both ears Nose: External appearance is normal, nares patent Mouth: Oral mucous membranes moist without erythema dentition noted to be without erosion Neck: Normal appearance, no masses or tenderness, trachea midline Thyroid: Gland midline and appropriate size for age Respiratory: Normal respiratory effort, clear to auscultation without wheezes, rhonchi but dependent fine rales noted posteriorly Cardiovascular: Irregular rate and rhythm, normal S1, S2, the exam is without rubs, or gallops. Gastrointestinal: Moderate distention with minimal periumbilical tenderness to palpation, normal active bowel sounds, tone normal without rigidity or guarding, no masses present, no hepatomegaly, no spleen tip felt. No rectal exam obtained due to active paracentesis occurring. Lymphatic: Neck without adenopathy, axilla without lymphadenopathy present Musculoskeletal: Right and left lower extremities with erythema noted below the legs and César wraps on because of woody swelling bilaterally Skin and subcutaneous tissue: No rashes or ulcerations noted, normal skin turgor, digits and nails without clubbing/cyanosis/deformities. Neurologic: The patient is grossly oriented to person place and time, cranial nerves show tongue movements are normal with normal tongue extrusion midline, light touch sensation is intact. Some psychomotor retardation noted Psychiatric: No hallucinations or delusions are present, the patient does seem moderately confused and mildly depressed Results - Labs CBC & BMP: 08/24/16 02:46 08/24/16 02:46
[2016-08-24] MEDS ORDERED: ALBUMIN 25% 12.5 GM/50 ML VIAL IV ONE (08:46)
--- NOTE | 2016-08-24 09:05 | Ultrasound Report ---
US right upper quadrant Indication: Abdominal pain, cirrhosis, focus liver gallbladder pancreas. Comparison: Right upper quadrant ultrasound dated August 18, 2015. Technique: Multiple longitudinal and transverse real-time sonographic images of the right upper quadrant of the abdomen are obtained. Findings: The liver measures 15.4 cm and demonstrates nodular appearance suggestive of cirrhosis. Gallbladder wall is mildly thickened. No significant gallbladder distention or cholelithiasis. Sonographic Leo sign reportedly negative. The common duct measures 0.56 cm in diameter and there is no evidence of significant intrahepatic ductal dilation. Pancreas obscured. Significant perihepatic ascites noted. Right kidney measures 11.4 cm. IMPRESSION: Findings consistent with cirrhosis with significant perihepatic ascites. There is nonspecific mild gallbladder wall thickening which can be seen in the setting of liver disease. PROCEDURE INTERPRETED AT [facility] DEPARTMENT OF RADIOLOGY Final Report Signed by: Dr Nitish London
[2016-08-24] MEDS: INSULIN LISPRO 100 UNIT/ML SUBCUT SCH ×4 (10:09→20:52)
[2016-08-24] MEDS: ALLOPURINOL 300 MG TABLET PO SCH ×2 (10:11→20:52)
[2016-08-24] MEDS: RIFAXIMIN 550 MG TABLET PO SCH ×2 (10:11→20:51)
[2016-08-24] MEDS: MAGNESIUM OXIDE 400 MG TABLET PO SCH ×2 (10:11→20:52)
[2016-08-24] MEDS: LACTULOSE 20 GM/30 ML UDCUP PO SCH ×3 (10:11→20:51)
[2016-08-24] MEDS: ASPIRIN EC 81 MG TABLET PO SCH (10:12)
[2016-08-24] MEDS: FUROSEMIDE 100 MG/10 ML VIAL IV SCH ×2 (10:14→20:50)
--- NOTE | 2016-08-24 10:42 | Post Interventional Procedure ---
Pre-op diagnosis: ascites Post-op diagnosis: same Procedure: u/s guided paracentesis Contrast: none Flouroscopy: none Radiologist: Aly Johnston Anesthesia: local Specimens: none sent Estimated blood loss: none Complications: none Condition: stable Description/Findings: 9.8 L serous fluid removed. Patient tolerated well. Assessment and Plan - Time spent with patient Time spent with patient: Less than 30 minutes
--- NOTE | 2016-08-24 10:44 | Ultrasound Report ---
Exam: Ultrasound-guided paracentesis Clinical history: ascites. Physician: Dr. Johnston. Procedure: Informed consent was obtained prior to procedure. A formal timeout was performed. Maximum sterile barrier technique was used. The right lower quadrant was prepped and draped in sterile fashion. Under sonographic guidance, a 6 [place]ian safety centesis catheter and needle were advanced into the ascites using trocar technique. A captured sonographic image documents needle position. The needle was removed. Through the catheter, we obtained a total of 9800 cc of straw-colored ascites. No additional fluid could be obtained. Therefore, the catheter was removed. A bandage was placed at the puncture site. The patient tolerated the procedure well. Complications: None. Estimated blood loss: Less than 5 mL. Impression: Technically successful ultrasound guided paracentesis. PROCEDURE INTERPRETED AT [facility] DEPARTMENT OF RADIOLOGY Final Report Signed by: Aly Johnston
--- NOTE | 2016-08-24 11:16 | Ultrasound Report ---
History: Scrotal edema Date: 08/24/2016 Study: Ultrasound of the scrotum with duplex Comparison exam: No previous similar Real-time ultrasound images are captured and archived. There is massive diffuse edema of the scrotal soft tissues bilaterally. There is mild bilateral hydrocele, left greater than right. There is no intrinsic testicular mass. There is symmetric color Doppler flow to either testicle without evidence of torsion. The left testicle measures 23 x 42 x 25 mm; the right testicle measures 24 x 41 x 23 mm. The right epididymis measures 13 mm and contains a 4 mm epididymal cyst; the left epididymis measures 11 mm and is unremarkable. Impression: Severe diffuse nonspecific scrotal wall edema No evidence of testicular torsion or intrinsic testicular mass Mild bilateral hydrocele Right epididymal cyst PROCEDURE INTERPRETED AT [facility] DEPARTMENT OF RADIOLOGY Final Report Signed by: Dr. Khushi Smith
[2016-08-24 12:00] LABS: Bilirubin,Total 0.7 MG/DL (0.2-1.0)
[2016-08-24 12:17] LABS: Bilirubin,Total 0.9 MG/DL (0.2-1.0)
--- NOTE | 2016-08-24 12:27 | Sleep Medicine Consult ---
Assessment and Plan (1) Obstructive sleep apnea Status: Chronic Assessment and plan: Patient states that he is compliant with his CPAP and his history is that he's been compliant on last follow-up and does keep his appointments. We can provide him with an auto titration device or set him at CPAP of 17 cm if he is unable to get his machine up here. He states that he would rather sleep with his own CPAP machine. I have asked the nurses to help him contact family and get his device up here. Sleep Lab needs to know when it is here so that we can download compliance data and confirm compliance. Thank you for this consult and the opportunity to participate in his care. Current Visit: No History of Present Illness Chief complaint: Obstructive sleep apnea History of present illness: Mr. Turner is a 65 year old male who has been a longtime patient of the sleep lab. I think he had originally been diagnosed by Dr. Chaka Mayers with obstructive sleep apnea several years ago. He is on CPAP of 17 cm and was last seen in the sleep clinic last year. His original diagnosis was in May 2013 with an AHI of 47.5. Downloaded compliance data did show excellent compliance with a 100% usage right in July to August of last year and in the 6% usage right for over 4 hours and an average AHI of 0.7. In deference to the admission note , the patient states that he is compliant with CPAP but did not bring his machine because he was brought emergently to the hospital and was unable to bring it with him. He had been doing well on CPAP and reported no new issues or problems to me. He does have a complicated health history and has been in in and out of the hospital recently. Home Medications Medication Instructions Recorded Confirmed Type Allopurinol [Zyloprim] 300 mg PO BID 08/19/14 08/23/16 History Aspirin [Ecotrin] 81 mg PO DAILY 08/19/14 08/23/16 History Levothyroxine Tab [Synthroid Tab] 125 mcg PO DAILY@0700 08/19/15 08/23/16 History Omeprazole Magnesium [Prilosec] 20 mg PO DAILY 07/30/16 08/23/16 History Lactulose Liquid [Chronulac] 20 gm PO TID #2700 ml 08/07/16 08/23/16 Rx Magnesium Oxide 400 mg PO BID #60 tablet 08/07/16 08/23/16 Rx Metoprolol Tartrate Tab [Lopressor 50 mg PO BID #60 tablet 08/07/16 08/23/16 Rx Tab] Pantoprazole Tab [Protonix Tab] 40 mg PO BEDTIME #30 tablet 08/07/16 08/23/16 Rx Rifaximin [Xifaxan] 550 mg PO BID #60 tablet 08/07/16 08/23/16 Rx Furosemide [Furosemide] 20 mg PO BID 08/23/16 08/23/16 History Hydrocodone/Acetaminophen 1 tablet PO Q4HR PRN 08/23/16 08/23/16 History [Hydrocodon-Acetaminoph 7.5-325] Allergies Allergy/AdvReac Type Severity Reaction Status Date / Time No Known Allergies Allergy Verified 07/31/16 10:00 Review of systems: Otherwise unremarkable from a sleep standpoint. Exam ([place]) H&P - Constitutional Vitals: Period Temp Pulse Resp BP Sys/Collins Pulse Ox Last 24 Hr 96.5 F-98.6 F 77-163 14-22 88-146/52-111 96-100 Exam: He is chronically ill appearing in no acute distress. He answers questions appropriately. Pupils equal round reactive to light and accommodation. Extraocular movements intact. Oropharynx with a class III Mallampati exam. Neck supple without adenopathy. Chest with good air movement and no significant wheeze or rhonchi. Cardiac exam reveals a regular rhythm without murmur or gallop. Abdomen obese nontender extremities with some mild chronic edema and surgical dressings on his lower legs. Neurologically, he is grossly intact. Medical,Surgical,& Family Hx - Medical History Cardio: History of: Cardiac Dysrhythmia (atrial fib), Hypertension, PVD ( multiple stents in right leg and groin), Cardiovascular Problems (afib; DR RIZVI) No history of: CAD, AL, Pacemaker Psychological: History of: Anxiety Disorders, Depression Neurology: No history of: Cerebrovascular Accident, Dementia, Seizures, TIA HEENT: History of: Ear Problem ([place]), Eye Problem ([place]) No history of: Glaucoma Endocrine: History of: Diabetes Mellitus (NIDDM), Dyslipidemia, Thyroid Disorder No history of: Diabetes Mellitus (IDDM) Rheumatology: History of;: Gout (knees, feet, ankles, wrist, and hands) Respiratory: History of: Obstructive Sleep Apnea (USES CPAP AT BEDTIME) No history of: Bronchitis, COPD Genitourinary: History of: Prostate Problems Gastrointestinal: History of: Esophageal Varices, GERD, Gastrointestinal Bleed, Liver Problems (possible cirrhosis-quit drinkin alcohol), GI Problems (dysphagia ) Musculoskeletal: History of: Back/Neck Problems (multiple back surgeries), Degenerative Disk Disease, Musculoskeletal Problems (arthritis) Hematology: History of: Anemia No history of: Blood Transfusion Reaction Other: History of: Cancer (prostate) No history of: Anesthesia Reactions - Surgical History Cardiac Surgeries: Sugical HX of: Femoral-Popliteal Bypass Graft (right groin and right leg with stents) Patient Denies: Cardiac Catheterization, Carotid Endarterectomy Comment Only: Internal Defibrillator (2010- no significant coronary artery disease) Thoracic Surgeries: Surgical HX of;: Lobectomy (right lower lobe) HEENT Surgeries: Patient denies: Carotid Endarterectomy, Eye Surgery, Thyroid Surgery, Tonsilectomy & Adenoidectomy Abdominal Surgeries: Surgical HX of: Abdominal Surgery, Colonoscopy, EGD, Hernia Repair (x2) Patient denies: Appendectomy, Cholecystectomy Reproductive Surgeries: Surgical HX of;: Genitourinary Surgery, Prostate Surgery (prostatectomy.cancer removed 2010 or 2011 in [place]) Orthopedic Surgeries: Surgical HX of;: Implanted Devices (PLATE IN BACK), Orthopedic Surgery (knee surgery x 9, hand (carpatunnel surgery to both hands), shoulder), Spinal Surgery (multiple back surgeries), Total Knee Replacement ( LEFT KNEE REPLACEMENT) - Family History Family History: Reports;: Family Cancer (father-cirrhosis), Family Diabetes ( Father and possibly a sister), Family Heart Disease (DAD,MOM,SISTER), Family Hypertension (DAD,SISTER, BROTHER), Family Stroke (DAD) Denies;: Family Anesthesia Reaction, Family Psychiatric Problems - Social History Smoking Status: Unknown if ever smoked Frequency of Alcohol Use: Frequently Type of Drug Use: None Results - Labs CBC & BMP: 08/24/16 02:46 08/24/16 02:46 Lab Results: I have reviewed the past 24 hour labs
--- NOTE | 2016-08-24 13:23 | Event Note ---
Patient is a 65-year-old male status post skin graft in the left lower extremity procedure performed on 07/31/[address] Flores. The patient has been following for wound care outpatient and with home health. He has progressed well. He has no new complaints at this time Vital signs stable RLE: donor site clean and dry except area appx [id number] without evidence of infection. LLE: donor sites clean and dry. Graft site clean and dry with single remaining staple. No active drainage or evidence of infection. Heel wound - stage 2 without evidence of infection A/p Continue wound care per orders placed. Dressings to thighs qhs to prevent scratching and wound breakdown. Float bilateral heels while in bed. Activity as tolerated. F/u Dr. Flores or partner 09/03/2016.
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
[2016-08-24] MEDS: cefTRIAXone 1,000 MG in SODIUM CHLORIDE 0.9% 100 ML IV SCH (15:41)
--- NOTE | 2016-08-24 16:23 | Hospitalist Progress Note ---
Assessment and Plan - Time spent with patient Time spent with patient: Greater than 30 minutes (1) Cirrhosis of liver Status: Chronic Assessment and plan: GI f/u. Continue current treatment plan. Current Visit: No Qualifiers: Hepatic cirrhosis type: alcoholic cirrhosis Ascites presence: with ascites Qualified Code(s): K70.31 - Alcoholic cirrhosis of liver with ascites (2) Alcohol abuse Status: Chronic Assessment and plan: Educated pt on quit drinking. Current Visit: No (3) Hyperbilirubinemia Status: Acute Assessment and plan: Monitor liver function panel. Current Visit: No (4) Atrial fibrillation Status: Chronic Assessment and plan: Current rate controlled. Not a candidate for AC per Cards due to portal htn gastrophy and anemia. Current Visit: No Qualifiers: Atrial fibrillation type: chronic Qualified Code(s): I48.2 - Chronic atrial fibrillation (5) Alcoholic hepatitis with ascites Status: Chronic Assessment and plan: s/p paracentesis Current Visit: No (6) Leukocytosis Status: Acute Assessment and plan: Suspect peritonitis. Continue IV rocephin. F/u blood culture result. Current Visit: No (7) Open wound of both legs with complication Status: Acute Current Visit: No (8) Anemia Status: Chronic Current Visit: Yes Hospitalist: Subjective Interval history: No overnight acute event. Feeling better after parecentesis. ascites fluid discarded without sending to lab. Pt felt abd pain better. On IV rocephin since last night. Cards and GI f/u. Exam - Constitutional Vitals: Period Temp Pulse Resp BP Sys/Ocllins Pulse Ox Last 24 Hr 97.5 F-98.6 F 77-134 14-20 86-146/54-85 96-100 Exam: GENERAL: Lying in bed supine. AAOx3. Pale. HEENT: Pupils equally round and reactive to light, conjunctivae clear. TMs maza and translucent. Oropharynx pink, with moist mucous membranes. Normal lips, teeth and gums. NECK: Supple without mass. HEART: RRR, no murmur. CHEST: Normal shape, fair air movement, no retractions. CV: RRR, no murmurs, 2+ peripheral pulses LUNGS: No wheezing. Decreased breath sound at b/l lower lobes. ABDOMEN: Soft, +BS, slight tenderness at abd area. SKIN: No hives. Pale. LYMPH: No anterior or posterior cervical, or supraclavicular lymphadenopathy. NEURO: No gross motor deficits noted. Results - Labs CBC & BMP: 08/24/16 02:46 08/24/16 02:46
[2016-08-24] MEDS: ENOXAPARIN 30 MG/0.3 ML SYRINGE SUBCUT SCH (19:04)
[2016-08-24] MEDS: METOPROLOL TARTRATE 50 MG TABLET PO SCH (20:51)
[2016-08-24] MEDS: PANTOPRAZOLE 40 MG TABLET PO SCH (20:51)
[2016-08-25] MEDS: metroNIDAZOLE INJ 500 MG in PREMIX 1 EACH IV SCH ×3 (00:43→20:28)
[2016-08-25 03:52] LABS: Basophils # 0.1 10*3/uL (0.0-0.2); Basophils % 0.8 % (0.0-0.8); Eosinophils # 0.3 10*3/uL (0.0-0.87); Eosinophils % 4.1 % (0.00-10.9); Hematocrit 26.2 VOL% (42.0-52.0); Immature Granulocytes % 0.3 %; Immature Granulocytes Absolute 0.02 #; Lymphocytes # 1.4 10*3/uL (1.4-4.0); Mean Corpuscular HGB Conc 34.4 GM/DL (32-36); Mean Corpuscular Hemoglobin 32 PG (27-34); Mean Corpuscular Volume 91.6 FL (87-102); Mean Platelet Volume 9.7 FL (9.6-12.0); Monocytes # 0.6 10*3/uL (0.11-0.8); Monocytes % 10.3 % (1.7-12.7); Neutrophils # 3.8 10*3/uL (1.4-7.4); Neutrophils % 61.5 % (38.7-73.9); Platelet Count 157 T/CUMM (130-400); Red Blood Count 2.86 MC/CUMM (3.8-5.5); White Blood Count 6.1 T/CUMM (4-12)
[2016-08-25 04:21] LABS: Calcium 7.9 MG/DL (8.5-10.1); Magnesium 1.6 MG/DL (1.8-2.4); Potassium 3.6 MMOL/L (3.5-5.1); Risk Ratio 2.78
[2016-08-25] MEDS: LEVOTHYROXINE 125 MCG TABLET PO SCH (06:47)
[2016-08-25] MEDS: INSULIN LISPRO 100 UNIT/ML SUBCUT SCH ×4 (08:35→20:58)
[2016-08-25] MEDS: SPIRONOLACTONE 50 MG TABLET PO SCH (08:45)
[2016-08-25] MEDS: MAGNESIUM OXIDE 400 MG TABLET PO SCH ×2 (08:46→21:08)
[2016-08-25] MEDS: FUROSEMIDE 100 MG/10 ML VIAL IV SCH ×2 (08:46→21:07)
[2016-08-25] MEDS: ALLOPURINOL 300 MG TABLET PO SCH ×2 (08:46→21:08)
[2016-08-25] MEDS: RIFAXIMIN 550 MG TABLET PO SCH ×2 (08:46→21:08)
[2016-08-25] MEDS: METOPROLOL TARTRATE 50 MG TABLET PO SCH ×2 (08:46→21:08)
[2016-08-25] MEDS: ASPIRIN EC 81 MG TABLET PO SCH (08:46)
[2016-08-25] MEDS: LACTULOSE 20 GM/30 ML UDCUP PO SCH ×3 (08:48→21:08)
--- NOTE | 2016-08-25 09:11 | Hospitalist Progress Note ---
Assessment and Plan - Time spent with patient Time spent with patient: Less than 30 minutes (1) Cirrhosis of liver Status: Chronic Assessment and plan: GI f/u. Continue current treatment plan. Current Visit: No Qualifiers: Hepatic cirrhosis type: alcoholic cirrhosis Ascites presence: with ascites Qualified Code(s): K70.31 - Alcoholic cirrhosis of liver with ascites (2) Alcohol abuse Status: Chronic Assessment and plan: Educated pt on quit drinking. Current Visit: No (3) Hyperbilirubinemia Status: Acute Assessment and plan: Monitor liver function panel. Current Visit: No (4) Atrial fibrillation Status: Chronic Assessment and plan: Current rate controlled. On PO meds per Cards. Not a candidate for AC per Cards due to portal htn gastrophy and anemia. Current Visit: No Qualifiers: Atrial fibrillation type: chronic Qualified Code(s): I48.2 - Chronic atrial fibrillation (5) Alcoholic hepatitis with ascites Status: Chronic Assessment and plan: s/p paracentesis Current Visit: No (6) Leukocytosis Status: Acute Assessment and plan: Leukocytosis resolved today. Suspect peritonitis. Continue IV rocephin. F/u blood culture result. Current Visit: No (7) Open wound of both legs with complication Status: Acute Assessment and plan: Continue current wound care. Current Visit: No (8) Anemia Status: Chronic Assessment and plan: Monitor H/H Transfuse if needed. Current Visit: Yes Hospitalist: Subjective Interval history: 08/24/16: No overnight acute event. Feeling better after parecentesis. ascites fluid discarded without sending to lab. Pt felt abd pain better. On IV rocephin since last night. Cards and GI f/u. 08/25/16: No overnight acute event. Can eat well. Stool C diff result pending. Leukocytosis resolved. Had paracentesis yesterday. Off Cardizem drip. Afib rate controlled. Cards and GI f/u. No fever, chest pain, nausea or vomiting reported. Exam - Constitutional Vitals: Period Temp Pulse Resp BP Sys/Collins Pulse Ox Last 24 Hr 96.4 F-98.8 F 67-103 16-20 72-98/45-74 92-100 Exam: GENERAL: Lying in bed supine. AAOx3. Pale. HEENT: Pupils equally round and reactive to light, conjunctivae clear. TMs maza and translucent. Oropharynx pink, with moist mucous membranes. Normal lips, teeth and gums. NECK: Supple without mass. HEART: RRR, no murmur. CHEST: Normal shape, fair air movement, no retractions. CV: RRR, no murmurs, 2+ peripheral pulses LUNGS: No wheezing. Decreased breath sound at b/l lower lobes. ABDOMEN: Soft, +BS, slight tenderness at abd area. SKIN: No hives. Pale. LYMPH: No anterior or posterior cervical, or supraclavicular lymphadenopathy. NEURO: No gross motor deficits noted. Results - Labs CBC & BMP: 08/25/16 03:30 08/25/16 03:30
--- NOTE | 2016-08-25 11:06 | Gastrointestinal Progress Note ---
Assessment and Plan - Time spent with patient Time spent with patient: Greater than 30 minutes (1) Alcoholic cirrhosis of liver with ascites Status: Acute Current Visit: No (2) Encephalopathy acute Status: Acute Current Visit: No (3) Other specified counseling Status: Acute Current Visit: No (4) Anemia Status: Chronic Current Visit: Yes Gastroenterology - PN: Subj Interval history: PLEASE NOTE -- automatic citation of patient information is unavoidable in this electronic note. I have made a reasonable effort to review the information cited , but it is not a part of my evaluation, impression, or recommendation unless specifically discussed in the dictated text that follows. As well, voice recognition software was used in the creation of this clinical note. Reasonable effort was made to identify and correct gross errors. Despite proofreading, errors in client hr manager may be present, including nonsense verbiage at times. If you encounter such an error, please contact me at for discussion and correction. -- Hal Chief complaint: alcoholic cirrhosis Subjective: the patient is a 65-year-old male seen for follow-up of alcoholic cirrhosis. No acute events are reported overnight. Blood counts are stable. Mental status is clear. No new liver labs are available this morning. The patient reports feeling well this morning. Medications: [place], allopurinol, aspirin, Rocephin, diltiazem, Lovenox, Lasix, Humalog, lactulose, Synthroid, magnesium oxide, Lopressor, Flagyl, Zofran, Protonix, Rifaximin, Aldactone Review of Symptoms: 12 point review of symptoms was negative except as noted above Physical examination: Vital Signs: Current vital signs reviewed. General Appearance: lying in bed. Comfortable. No apparent distress. Head: Normocephalic. Eyes: no scleral icterus. No scleral injection. No conjunctival pallor. Oral Cavity: Odor of breath was normal. No drooling was observed. Lips showed no abnormalities. Lungs: Respiration rhythm and depth was normal. Cardiovascular: Heart rate and rhythm were normal. Abdomen: abdomen was not distended. Abdominal auscultation revealed no abnormalities. Ascites was equivocal. Abdominal palpation revealed no tenderness and no hepatosplenomegaly. Musculoskeletal System: musculoskeletal system was grossly normal. Neurological: level of consciousness was normal. Speech was normal. No coordination/cerebellum abnormalities were noted. Skin: Gen. appearance was normal. Color and pigmentation were normal. No skin lesions were appreciated. Laboratory: white blood count 6.1, hemoglobin 9.0, hematocrit 26.2, platelets 157, INR 1.1, PT 12.0 Radiology: reviewed Impressions: 1. Alcoholic cirrhosis -- the patient appears to be clinically compensated at present. I recommend continued diuretic therapy with careful attention to electrolyte management. I recommend minimization of medications to whatever extent possible. He will need outpatient follow-up in the gastroenterology clinic for continued diuretic and ascites monitoring. 2. Hepatic encephalopathy -- the patient is clear at the moment. I recommend continued prophylaxis with lactulose as prescribed. 3. Anemia -- blood counts are stable today. The patient does have him call positive stools suggesting chronic low-grade blood loss, possibly from portal hypertensive gastropathy. He has known history of low-grade esophageal varices and is at risk for peptic ulcer as well. There is not indication for urgent endoscopy, but the patient will probably need upper endoscopy with timing based on clinical progress. 4. Other specified counseling -- Patient seen for greater than 30 minutes. Greater than 50% of this time was spent counseling regarding differential diagnosis, likely diagnosis,, diagnostic and therapeutic options, risks, benefits, and alternatives to procedures and medications, informed consent, and plan of care generally. Patient has expressed understanding and wishes to proceed. Recommendations: -- continued volume and electrolyte management -- continued diuretic therapy -- minimize medications to whatever extent possible -- continue lactulose and/or Rifaximin -- monitor blood counts with transfusion as indicated -- continue proton pump inhibitor -- patient may need upper endoscopy with timing based on clinical progress -- we will continue to follow with you Exam (Progress Note) - Constitutional Vitals: Period Temp Pulse Resp BP Sys/Collins Pulse Ox Last 24 Hr 96.4 F-98.8 F 67-103 16-20 72-98/45-74 92-100 Results - Labs CBC & BMP: 08/25/16 03:30 08/25/16 03:30
--- NOTE | 2016-08-25 11:25 | Cardiology Progress Note ---
Assessment and Plan (1) Atrial fibrillation with RVR Status: Acute Assessment and plan: His rates appear to be well controlled currently. I think he is improving and his volume status is stable. Current Visit: Yes (2) Cirrhosis of liver with ascites Status: Chronic Current Visit: Yes (3) Dyslipidemia Status: Chronic Current Visit: Yes (4) Cardiogenic shock Status: Acute Current Visit: No Cardiology - PN: Subj Interval history: Patient with a history of atrial fibrillation which is chronic. He has cirrhosis esophageal varices history of GI bleeding and is not a candidate for long-term anticoagulation. He is doing well improving with much less dyspnea. I think his heart rates are good. It is always difficult with him to know what his intravascular volume status is. He clearly has severe peripheral edema which is mostly extravascular and ascites and the tendency is to try to over diurese him and we have done that on several occasions. I think overall he is improving and we will continue his currently. Exam (Progress Note) - Constitutional Vitals: Period Temp Pulse Resp BP Sys/Collins Pulse Ox Last 24 Hr 96.4 F-98.8 F 67-103 16-20 72-98/45-74 92-100 Exam: General:no acute distress. alert and oriented, mood and affect are normal HEENT: no new lesions, sclerae are clear, mouth and pharynx benign Neck: supple, trachea midline, no JVD noted Lungs: no rales ronchi or wheeze is noted. pt comfortable without accesory muscle use to assist with breathing CV: Irregularly irregular RR no murmur rub or gallop is noted. Abd: soft and nontender, BSNA, no masses. Ext: no cyanosis, clubbing or edema Neuro: grossly intact without focal neurologic deficit. Result/EKG - Labs CBC & BMP: 08/25/16 03:30 08/25/16 03:30 Labs: Laboratory Results - last 24 hr 08/23/16 08/23/16 08/24/16 12:33 15:47 02:46 WBC RBC Hgb Hct MCV MCH MCHC RDW Plt Count MPV Neut % (Auto) Lymph % (Auto) [place] % (Auto) Eos % (Auto) Baso % (Auto) Neut # (Auto) Lymph # (Auto) [place] # (Auto) Eos # (Auto) Baso # (Auto) Immature Gran % Nucleated RBC % Immature Gran # Nucleated RBCs # Sodium Potassium Chloride Carbon Dioxide Anion Gap BUN Creatinine GFR Calculation BUN/Creatinine Ratio Glucose POC Glucose Calculated Osmolality Calcium Magnesium Total Bilirubin 0.70 0.90 Ammonia Triglycerides Cholesterol LDL Cholesterol VLDL Cholesterol HDL Cholesterol Heart Disease Risk Ratio Procalcitonin 0.12 Blood Type Antibody Screen 08/24/16 08/24/16 08/24/16 11:27 16:31 17:54 WBC RBC Hgb Hct MCV MCH MCHC RDW Plt Count MPV Neut % (Auto) Lymph % (Auto) [place] % (Auto) Eos % (Auto) Baso % (Auto) Neut # (Auto) Lymph # (Auto) [place] # (Auto) Eos # (Auto) Baso # (Auto) Immature Gran % Nucleated RBC % Immature Gran # Nucleated RBCs # Sodium Potassium Chloride Carbon Dioxide Anion Gap BUN Creatinine GFR Calculation BUN/Creatinine Ratio Glucose POC Glucose 167 H 141 H Calculated Osmolality Calcium Magnesium Total Bilirubin Ammonia Triglycerides Cholesterol LDL Cholesterol VLDL Cholesterol HDL Cholesterol Heart Disease Risk Ratio Procalcitonin Blood Type A POSITIVE Antibody Screen Negative 08/24/16 08/25/16 08/25/16 19:24 03:30 03:30 WBC 6.1 D RBC 2.86 L Hgb 9.0 L Hct 26.2 L MCV 91.6 MCH 32 MCHC 34.4 RDW 15.0 Plt Count 157 MPV 9.7 Neut % (Auto) 61.5 Lymph % (Auto) 23.0 [place] % (Auto) 10.3 Eos % (Auto) 4.1 Baso % (Auto) 0.8 Neut # (Auto) 3.8 Lymph # (Auto) 1.4 [place] # (Auto) 0.6 Eos # (Auto) 0.3 Baso # (Auto) 0.1 Immature Gran % 0.3 Nucleated RBC % 0.0 Immature Gran # 0.02 Nucleated RBCs # 0.00 Sodium Potassium Chloride Carbon Dioxide Anion Gap BUN Creatinine GFR Calculation BUN/Creatinine Ratio Glucose POC Glucose 152 H Calculated Osmolality Calcium Magnesium Total Bilirubin Ammonia 16 Triglycerides Cholesterol LDL Cholesterol VLDL Cholesterol HDL Cholesterol Heart Disease Risk Ratio Procalcitonin Blood Type Antibody Screen 08/25/16 08/25/16 03:30 07:12 WBC RBC Hgb Hct MCV MCH MCHC RDW Plt Count MPV Neut % (Auto) Lymph % (Auto) [place] % (Auto) Eos % (Auto) Baso % (Auto) Neut # (Auto) Lymph # (Auto) [place] # (Auto) Eos # (Auto) Baso # (Auto) Immature Gran % Nucleated RBC % Immature Gran # Nucleated RBCs # Sodium 136 Potassium 3.6 Chloride 102 Carbon Dioxide 22 Anion Gap 15.6 H BUN 19 H Creatinine 1.50 H GFR Calculation 71 BUN/Creatinine Ratio 12.00 Glucose 112 H POC Glucose 121 H Calculated Osmolality 274.0 Calcium 7.9 L Magnesium 1.6 L Total Bilirubin Ammonia Triglycerides 60 Cholesterol 100 LDL Cholesterol 60.0 VLDL Cholesterol 12.0 HDL Cholesterol 36 L Heart Disease Risk Ratio 2.78 Procalcitonin Blood Type Antibody Screen
--- NOTE | 2016-08-25 11:48 | Event Note ---
General Surgery Progress Note Chief complaint This patient is a 65-year-old man admitted with A. fib RVR which is now rate controlled who had split-thickness skin grafting of his left lower extremity by Dr. Schumacher in the past for open wounds and we are following for this reason Interval history No events overnight. Patient is scheduled to go to a regular bed today without monitor Physical exam The patient's left lower extremity skin graft has nearly 100% take. The donor sites are healing well. Labs Reviewed Imaging Reviewed Assessment and plan Continue current wound care recommendations. Call if needed.
[2016-08-25] MEDS: cefTRIAXone 1,000 MG in SODIUM CHLORIDE 0.9% 100 ML IV SCH (18:49)
[2016-08-25] MEDS: ENOXAPARIN 30 MG/0.3 ML SYRINGE SUBCUT SCH (18:55)
[2016-08-25] MEDS: PANTOPRAZOLE 40 MG TABLET PO SCH (21:08)
[2016-08-25] MEDS: DILTIAZEM INJ 100 MG in SODIUM CHLORIDE 0.9% 100 ML IV SCH (21:57)
[2016-08-26] MEDS: metroNIDAZOLE INJ 500 MG in PREMIX 1 EACH IV SCH ×3 (03:40→21:24)
[2016-08-26 06:08] LABS: Basophils # 0.1 10*3/uL (0.0-0.2); Basophils % 1.3 % (0.0-0.8); Eosinophils # 0.3 10*3/uL (0.0-0.87); Eosinophils % 5.8 % (0.00-10.9); Hematocrit 27.6 VOL% (42.0-52.0); Hemoglobin 9.4 GM/DL (14.0-18.0); Immature Granulocytes % 1.1 %; Immature Granulocytes Absolute 0.06 #; Lymphocytes # 1.7 10*3/uL (1.4-4.0); Lymphocytes % 32.2 % (21.2-54.2); Mean Corpuscular HGB Conc 34.1 GM/DL (32-36); Mean Corpuscular Hemoglobin 31 PG (27-34); Mean Corpuscular Volume 91.4 FL (87-102); Monocytes # 0.5 10*3/uL (0.11-0.8); Monocytes % 8.4 % (1.7-12.7); Neutrophils # 2.7 10*3/uL (1.4-7.4); Neutrophils % 51.2 % (38.7-73.9); Platelet Count 184 T/CUMM (130-400); Red Blood Count 3.02 MC/CUMM (3.8-5.5); Red Cell Distribution Width 15.1 % (9.3-17.3); White Blood Count 5.3 T/CUMM (4-12)
[2016-08-26 06:22] LABS: Calcium 7.9 MG/DL (8.5-10.1); Magnesium 1.5 MG/DL (1.8-2.4); Osmolality,Calculated 277.8 MOS/KG (273-304)
[2016-08-26] MEDS: LEVOTHYROXINE 125 MCG TABLET PO SCH (06:38)
[2016-08-26] MEDS ORDERED: POTASSIUM CHLORIDE 20 MEQ TABLET PO ONE (07:12)
--- NOTE | 2016-08-26 10:01 | Gastrointestinal Progress Note ---
Assessment and Plan (1) Alcoholic cirrhosis of liver with ascites Status: Acute Current Visit: No (2) Encephalopathy acute Status: Acute Current Visit: No (3) Other specified counseling Status: Acute Current Visit: No (4) Anemia Status: Chronic Current Visit: Yes Gastroenterology - PN: Subj Interval history: PLEASE NOTE -- automatic citation of patient information is unavoidable in this electronic note. I have made a reasonable effort to review the information cited , but it is not a part of my evaluation, impression, or recommendation unless specifically discussed in the dictated text that follows. As well, voice recognition software was used in the creation of this clinical note. Reasonable effort was made to identify and correct gross errors. Despite proofreading, errors in director game may be present, including nonsense verbiage at times. If you encounter such an error, please contact me at for discussion and correction. -- Hal Chief complaint: alcoholic cirrhosis Subjective: the patient is a 65-year-old male seen for follow-up of alcoholic cirrhosis. No acute events are reported overnight. Blood counts are stable. Mental status is clear. No new liver labs are available this morning. The patient reports feeling well this morning. Medications: [place], allopurinol, aspirin, Rocephin, Lovenox, Lasix, Humalog, lactulose, Synthroid, magnesium oxide, Lopressor, Flagyl, Zofran, Protonix, Rifaximin, Aldactone (held due to hypotension) Review of Symptoms: 12 point review of symptoms was negative except as noted above Physical examination: Vital Signs: Current vital signs reviewed. General Appearance: lying in bed. Comfortable. No apparent distress. Head: Normocephalic. Eyes: no scleral icterus. No scleral injection. No conjunctival pallor. Oral Cavity: Odor of breath was normal. No drooling was observed. Lips showed no abnormalities. Lungs: Respiration rhythm and depth was normal. Cardiovascular: Heart rate and rhythm were normal. Abdomen: abdomen was not distended. Abdominal auscultation revealed no abnormalities. Ascites was equivocal. Abdominal palpation revealed no tenderness and no hepatosplenomegaly. Musculoskeletal System: musculoskeletal system was grossly normal. Neurological: level of consciousness was normal. Speech was normal. No coordination/cerebellum abnormalities were noted. Skin: Gen. appearance was normal. Color and pigmentation were normal. No skin lesions were appreciated. Laboratory: white blood count 5.3, hemoglobin 9.4, hematocrit 27.6, platelets 184, no new liver labs this morning, sodium 137, potassium 3.0, chloride 100, CO2 23, BUN 20, creatinine 1.8, glucose 133, calcium 7.9, magnesium 1.5, ammonia 18 Radiology: reviewed Impressions: 1. Alcoholic cirrhosis -- the patient appears to be clinically compensated at present. I recommend continued diuretic therapy with careful attention to electrolyte management. With hypokalemia, consider reducing Lasix dosing in order to allow for low dose Aldactone in the setting of relative hypotension. He will need outpatient follow-up in the gastroenterology clinic for continued diuretic and ascites monitoring. 2. Hepatic encephalopathy -- the patient is clear at the moment. I recommend continued prophylaxis with lactulose as prescribed. 3. Anemia -- blood counts are stable today. He may need upper endoscopy for surveillance during convalescence but I will leave this to the discretion of Dr. Reaves. 4. Other specified counseling -- Patient seen for greater than 30 minutes. Greater than 50% of this time was spent counseling regarding differential diagnosis, likely diagnosis,, diagnostic and therapeutic options, risks, benefits, and alternatives to procedures and medications, informed consent, and plan of care generally. Patient has expressed understanding and wishes to proceed. Recommendations: -- continued volume and electrolyte management -- continued diuretic therapy; consider reducing Lasix dosing and providing low dose Aldactone in order to mitigate hypokalemia -- minimize potentially hepatotoxic medications to whatever extent possible -- continue lactulose and/or Rifaximin -- monitor blood counts with transfusion as indicated -- continue proton pump inhibitor -- patient may need upper endoscopy with timing based on clinical progress -- we will continue to follow with you. Dr. Reaves will resume G.I. care for this patient tomorrow. Exam (Progress Note) - Constitutional Vitals: Period Temp Pulse Resp BP Sys/Collins Pulse Ox Last 24 Hr 97.2 F-98.2 F 73-113 12-20 95-101/63-68 94-100 Results - Labs CBC & BMP: 08/26/16 05:12 08/26/16 05:12
[2016-08-26] MEDS: SPIRONOLACTONE 50 MG TABLET PO SCH (10:12)
[2016-08-26] MEDS: ASPIRIN EC 81 MG TABLET PO SCH (10:13)
[2016-08-26] MEDS: LACTULOSE 20 GM/30 ML UDCUP PO SCH ×3 (10:13→21:24)
[2016-08-26] MEDS: ALLOPURINOL 300 MG TABLET PO SCH ×2 (10:14→21:25)
[2016-08-26] MEDS: METOPROLOL TARTRATE 50 MG TABLET PO SCH ×2 (10:14→21:24)
[2016-08-26] MEDS: RIFAXIMIN 550 MG TABLET PO SCH ×2 (10:14→21:24)
[2016-08-26] MEDS: MAGNESIUM OXIDE 400 MG TABLET PO SCH ×2 (10:15→21:24)
[2016-08-26] MEDS: INSULIN LISPRO 100 UNIT/ML SUBCUT SCH ×4 (10:16→23:32)
--- NOTE | 2016-08-26 10:22 | Cardiology Progress Note ---
Assessment and Plan (1) Atrial fibrillation with RVR Status: Acute Assessment and plan: His rates appear to be well controlled currently. I think he is improving and his volume status is stable. Current Visit: Yes (2) Cirrhosis of liver with ascites Status: Chronic Current Visit: Yes (3) Dyslipidemia Status: Chronic Current Visit: Yes (4) Cardiogenic shock Status: Acute Current Visit: No Cardiology - PN: Subj Interval history: His blood pressures improved and his heart rate is reasonably well controlled currently. I think he is reached maximal hospital benefit and could be discharged when you are ready. I will have him scheduled to see me in the next several months. Exam (Progress Note) - Constitutional Vitals: Period Temp Pulse Resp BP Sys/Collins Pulse Ox Last 24 Hr 97.2 F-98.2 F 73-113 12-20 95-101/63-68 94-100 Exam: General:no acute distress. alert and oriented, mood and affect are normal HEENT: no new lesions, sclerae are clear, mouth and pharynx benign Neck: supple, trachea midline, no JVD noted Lungs: no rales ronchi or wheeze is noted. pt comfortable without accesory muscle use to assist with breathing CV: Irregularly irregular RR no murmur rub or gallop is noted. Abd: soft and nontender, BSNA, no masses. Ext: no cyanosis, clubbing or edema. Healing skin graft scars are noted Neuro: grossly intact without focal neurologic deficit. Result/EKG - Labs CBC & BMP: 08/26/16 05:12 08/26/16 05:12 Labs: Laboratory Results - last 24 hr 08/25/16 08/25/16 08/26/16 11:05 16:30 05:12 WBC 5.3 RBC 3.02 L Hgb 9.4 L Hct 27.6 L MCV 91.4 MCH 31 MCHC 34.1 RDW 15.1 Plt Count 184 MPV 10.0 Neut % (Auto) 51.2 Lymph % (Auto) 32.2 [place] % (Auto) 8.4 Eos % (Auto) 5.8 Baso % (Auto) 1.3 H Neut # (Auto) 2.7 Lymph # (Auto) 1.7 [place] # (Auto) 0.5 Eos # (Auto) 0.3 Baso # (Auto) 0.1 Immature Gran % 1.1 Nucleated RBC % 0.0 Immature Gran # 0.06 Nucleated RBCs # 0.00 Sodium Potassium Chloride Carbon Dioxide Anion Gap BUN Creatinine GFR Calculation BUN/Creatinine Ratio Glucose POC Glucose 170 H 140 H Calculated Osmolality Calcium Magnesium Ammonia 08/26/16 08/26/16 08/26/16 05:12 05:12 07:48 WBC RBC Hgb Hct MCV MCH MCHC RDW Plt Count MPV Neut % (Auto) Lymph % (Auto) [place] % (Auto) Eos % (Auto) Baso % (Auto) Neut # (Auto) Lymph # (Auto) [place] # (Auto) Eos # (Auto) Baso # (Auto) Immature Gran % Nucleated RBC % Immature Gran # Nucleated RBCs # Sodium 137 Potassium 3.0 L Chloride 100 Carbon Dioxide 23 Anion Gap 17.0 H BUN 20 H Creatinine 1.80 H GFR Calculation 57 BUN/Creatinine Ratio 11.00 Glucose 133 H POC Glucose 132 H Calculated Osmolality 277.8 Calcium 7.9 L Magnesium 1.5 L Ammonia 18
[2016-08-26] MEDS: FUROSEMIDE 100 MG/10 ML VIAL IV SCH (10:40)
--- NOTE | 2016-08-26 10:45 | Hospitalist Progress Note ---
Assessment and Plan - Time spent with patient Time spent with patient: Greater than 30 minutes (1) Cirrhosis of liver Status: Chronic Assessment and plan: WBC WNL in past two days. On IV rocephin due to strongly suspect peritonitis. Lab did not receive asictes sample two days ago. Will remain in hospital to continue IV antibiotics therapy today. Measure daily weight. Reeval in am for discharge planning. Spoke to pt in regarding this decision and pt agrees. Current Visit: No Qualifiers: Hepatic cirrhosis type: alcoholic cirrhosis Ascites presence: with ascites Qualified Code(s): K70.31 - Alcoholic cirrhosis of liver with ascites (2) Alcohol abuse Status: Chronic Assessment and plan: Educated pt on quit drinking. Current Visit: No (3) Hyperbilirubinemia Status: Acute Assessment and plan: Monitor liver function panel. Current Visit: No (4) Atrial fibrillation Status: Chronic Assessment and plan: Current rate controlled. On PO meds per Cards. Not a candidate for AC per Cards due to portal htn gastrophy and anemia. Current Visit: No Qualifiers: Atrial fibrillation type: chronic Qualified Code(s): I48.2 - Chronic atrial fibrillation (5) Alcoholic hepatitis with ascites Status: Chronic Assessment and plan: s/p paracentesis Current Visit: No (6) Leukocytosis Status: Acute Assessment and plan: Leukocytosis resolved today. Suspect peritonitis. Continue IV rocephin. F/u blood culture result. Current Visit: No (7) Open wound of both legs with complication Status: Acute Assessment and plan: Continue current wound care. Current Visit: No (8) Anemia Status: Chronic Assessment and plan: Monitor H/H Transfuse if needed. Current Visit: Yes (9) Hypokalemia Status: Acute Assessment and plan: Replenish K orally today. Monitor K level in am. Current Visit: No Hospitalist: Subjective Interval history: 08/24/16: No overnight acute event. Feeling better after parecentesis. ascites fluid discarded without sending to lab. Pt felt abd pain better. On IV rocephin since last night. Cards and GI f/u. 08/25/16: No overnight acute event. Can eat well. Stool C diff result pending. Leukocytosis resolved. Had paracentesis yesterday. Off Cardizem drip. Afib rate controlled. Cards and GI f/u. No fever, chest pain, nausea or vomiting reported. 08/26/16: Feeling better. Body weight 275pounds today same as yesterday. No fever. WBC WNL in past two days. IV rocephin started on 08/23/16 due to strongly suspect peritonitis. Lab did not receive asictes sample two days ago. Will remain in hospital to continue IV antibiotics therapy today. Measure daily weight. Reeval in am for discharge planning. Spoke to pt in regarding this decision and pt agrees. Exam - Constitutional Vitals: Period Temp Pulse Resp BP Sys/Collins Pulse Ox Last 24 Hr 97.2 F-98.2 F 73-113 12-20 95-101/63-68 94-100 Exam: GENERAL: Lying in bed supine. AAOx3. Pale. HEENT: Pupils equally round and reactive to light, conjunctivae clear. TMs maza and translucent. Oropharynx pink, with moist mucous membranes. Normal lips, teeth and gums. NECK: Supple without mass. HEART: RRR, no murmur. CHEST: Normal shape, fair air movement, no retractions. CV: RRR, no murmurs, 2+ peripheral pulses LUNGS: No wheezing. Decreased breath sound at b/l lower lobes. ABDOMEN: Soft, +BS, NT. SKIN: No hives. Pale. Healing skin wound on left thigh. LYMPH: No anterior or posterior cervical, or supraclavicular lymphadenopathy. NEURO: No gross motor deficits noted. Results - Labs CBC & BMP: 08/26/16 05:12 08/26/16 05:12
[2016-08-26] MEDS ORDERED: ENOXAPARIN 40 MG/0.4 ML SYRINGE SUBCUT SCH (16:00)
[2016-08-26] MEDS: cefTRIAXone 1,000 MG in SODIUM CHLORIDE 0.9% 100 ML IV SCH (16:21)
[2016-08-26] MEDS: PANTOPRAZOLE 40 MG TABLET PO SCH (21:24)
[2016-08-27] MEDS: metroNIDAZOLE INJ 500 MG in PREMIX 1 EACH IV SCH ×2 (03:37→12:19)
[2016-08-27 05:02] LABS: Basophils # 0.1 10*3/uL (0.0-0.2); Eosinophils # 0.2 10*3/uL (0.0-0.87); Eosinophils % 3.7 % (0.00-10.9); Hematocrit 27.7 VOL% (42.0-52.0); Hemoglobin 9.6 GM/DL (14.0-18.0); Immature Granulocytes % 0.2 %; Immature Granulocytes Absolute 0.01 #; Lymphocytes # 1.5 10*3/uL (1.4-4.0); Lymphocytes % 25.4 % (21.2-54.2); Mean Corpuscular HGB Conc 34.7 GM/DL (32-36); Mean Corpuscular Hemoglobin 32 PG (27-34); Mean Corpuscular Volume 90.8 FL (87-102); Mean Platelet Volume 10.4 FL (9.6-12.0); Monocytes # 0.5 10*3/uL (0.11-0.8); Monocytes % 8.6 % (1.7-12.7); NRBC # 0.02 10*3/uL; Neutrophils # 3.6 10*3/uL (1.4-7.4); Neutrophils % 61.1 % (38.7-73.9); Platelet Count 186 T/CUMM (130-400); Red Blood Count 3.05 MC/CUMM (3.8-5.5); Red Cell Distribution Width 15.2 % (9.3-17.3); White Blood Count 5.9 T/CUMM (4-12)
[2016-08-27 05:26] LABS: Calcium 7.8 MG/DL (8.5-10.1); Magnesium 1.6 MG/DL (1.8-2.4); Potassium 3.5 MMOL/L (3.5-5.1)
[2016-08-27] MEDS: LEVOTHYROXINE 125 MCG TABLET PO SCH (06:15)
[2016-08-27] MEDS ORDERED: FUROSEMIDE 40 MG TABLET PO SCH (09:00)
[2016-08-27] MEDS ORDERED: LACTULOSE 20 GM/30 ML UDCUP PO SCH (09:00)
[2016-08-27] MEDS ORDERED: FUROSEMIDE 40 MG/4 ML VIAL IV SCH (09:00)
[2016-08-27] MEDS: SPIRONOLACTONE 50 MG TABLET PO SCH (09:57)
[2016-08-27] MEDS: ALLOPURINOL 300 MG TABLET PO SCH (09:57)
[2016-08-27] MEDS: RIFAXIMIN 550 MG TABLET PO SCH (09:57)
[2016-08-27] MEDS: MAGNESIUM CHLORIDE 64 MG TABLET PO SCH ×2 (09:57→14:58)
[2016-08-27] MEDS: METOPROLOL TARTRATE 50 MG TABLET PO SCH (09:57)
[2016-08-27] MEDS: ASPIRIN EC 81 MG TABLET PO SCH (09:58)
[2016-08-27] MEDS: INSULIN LISPRO 100 UNIT/ML SUBCUT SCH ×2 (09:59→12:19)
--- NOTE | 2016-08-27 10:45 | Cardiology Progress Note ---
Roberto Espinoza Vanessa, RN, am scribing for, and in the presence of, Mario Hoang MD 10:41. Assessment and Plan - Time spent with patient Time spent with patient: Greater than 30 minutes (1) Atrial fibrillation with RVR Status: Acute Assessment and plan: Pulse rate overall is fairly well controlled. He is not anticoagulated due to previous esophageal varices and anemia. His atrial fibrillation is chronic. Some difficulty managing his rates with the fact that his blood pressures on the low side. Digoxin would be a consideration. Current Visit: Yes (2) Anemia Status: Chronic Assessment and plan: Stable. Follow closely. 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 Current Visit: Yes (4) Dyslipidemia Status: Chronic Assessment and plan: Continue as present.Statin drug would be contraindicated with his liver disease. Current Visit: Yes Cardiology - PN: Subj Interval history: PRIMARY TIMBER CRUISER: DR. RIZVI SUMMARY: Mr. Turner is a 65-year-old white male with risk factors significant for: Hypertension, PAD, diabetes, dyslipidemia, PATTI, obesity, sedentary lifestyle, family history of CAD, previous tobacco use. Past medical history includes chronic atrial fibrillation, nonischemic cardiomyopathy with most recent EF improved to 55%, liver cirrhosis due to previous alcohol abuse, chronic kidney disease, esophageal varices with anemia, multiple stents right lower extremity. Patient was admitted to the hospital August 23 abdominal pain and distention, scrotal and penile edema. While in the emergency room, he was noted to be in atrial fibrillation with RVR with pulse rate in the 150s. He received IV Cardizem, and since pulse rates have been well controlled. He has not required further use of Cardizem, and he has been rate controlled with beta-hussain. He has undergone paracentesis since admission, and he has had removed 9.8 L serous fluid. Most recent echo on August 03 with LV ejection fraction 55%, moderate LVH, moderately increased RA and LA, PA pressure 35 mmHg. Patient status has improved, and he is nearing maximum hospital benefit. August: Patient seen and examined in room on [facility] floor. He is awake and alert, and he is no acute distress. Appetite is good. He is requesting to go home today. Skin is warm and dry. Systolic BP overnight 100-105 mmHg. Pulse rates in the 90s and no greater than 120 bpm. Cardiac monitoring reveals A. fib without disturbance. Labs reviewed. H&H 9.6/27.7. Sodium 136, K+ 3.5, Mg+ 1.6. Creatinine 1.9 with GFR of 53. His heart rate at times are elevated. Difficulty managing his heart rate is secondary to his blood pressures. Systolic pressures running on the low side making it difficult to advance any medications for his heart rates. Digoxin would be a consideration but with his renal insufficiency this would have to be done with caution. Exam (Progress Note) - Constitutional Vitals: Period Temp Pulse Resp BP Sys/Collins Pulse Ox Last 24 Hr 97.1 F-97.6 F 99-119 17-20 98-104/57-66 96-99 Exam: General appearance: Pleasant and cooperative. Overweight, no acute distress. - Head Head exam: Present: normal inspection, normocephalic, atraumatic. Absent: hematoma, laceration - Eye Eye exam: Present: EOMI. Absent: conjunctival injection, nystagmus, periorbital swelling, scleral icterus, laceration to eyelids Pupils: Present: PERRL. Absent: constricted, dilated, fixed, irregular, unequal - ENT ENT exam: Present: normal exam, normal external ear exam - Neck Neck exam: Present: normal inspection. Absent: lymphadenopathy, meningismus, tenderness, thyromegaly - Respiratory Respiratory exam: Present: clear to auscultation bilaterally. Absent: accessory muscle use, chest wall tenderness. No rale, rhonchi, wheeze. - Cardiovascular Cardiovascular exam: Present: Irregular rate and rhythm. Absent: carotid bruit , gallop, JVD, rubs, murmur - GI/Abdominal GI/Abdominal exam: Present: normal bowel sounds, soft, ascites with protuberant abdomen. Absent: firm, guarding, hernia, mass, rebound. - Extremities Exam Extremities exam: Present: normal capillary refill. Upper extremity pulses 2+ . Lower extremity pulses 2+. Trace-1+ pretibial edema. Absent: calf tenderness. Other: Right lower extremity with compression. Left lower extremity with previous skin grafting sites which appear to be healing appropriately ( previously grafting due to necrotizing fasciitis) -Musculoskeletal Exam Musculoskeletal: Present: No Fluid Collection, No Pain, Normal Range of Motion - Neurological Exam Neurological exam: Present: alert, oriented X3, grossly intact without resting or essential tremor - Psychiatric Psychiatric exam: Present: normal affect, normal mood. He is not anxious or depressed. - Skin Skin exam: Present: normal color, warm, dry. Skin graft changes as noted above. Absent: cyanosis, diaphoretic, rash, urticaria Result/EKG - Labs CBC & BMP: 08/27/16 03:18 08/27/16 03:18 Lab Results: I have reviewed the past 24 hour labs Labs: Laboratory Results - last 24 hr 08/26/16 08/26/16 08/27/16 11:00 15:47 03:18 WBC 5.9 RBC 3.05 L Hgb 9.6 L Hct 27.7 L MCV 90.8 MCH 32 MCHC 34.7 RDW 15.2 Plt Count 186 MPV 10.4 Neut % (Auto) 61.1 Lymph % (Auto) 25.4 [place] % (Auto) 8.6 Eos % (Auto) 3.7 Baso % (Auto) 1.0 H Neut # (Auto) 3.6 Lymph # (Auto) 1.5 [place] # (Auto) 0.5 Eos # (Auto) 0.2 Baso # (Auto) 0.1 Immature Gran % 0.2 Nucleated RBC % 0.3 Immature Gran # 0.01 Nucleated RBCs # 0.02 Sodium Potassium Chloride Carbon Dioxide Anion Gap BUN Creatinine GFR Calculation BUN/Creatinine Ratio Glucose POC Glucose 191 H 171 H Calculated Osmolality Calcium Magnesium 08/27/16 03:18 WBC RBC Hgb Hct MCV MCH MCHC RDW Plt Count MPV Neut % (Auto) Lymph % (Auto) [place] % (Auto) Eos % (Auto) Baso % (Auto) Neut # (Auto) Lymph # (Auto) [place] # (Auto) Eos # (Auto) Baso # (Auto) Immature Gran % Nucleated RBC % Immature Gran # Nucleated RBCs # Sodium 136 Potassium 3.5 Chloride 100 Carbon Dioxide 25 Anion Gap 14.5 BUN 20 H Creatinine 1.90 H GFR Calculation 53 BUN/Creatinine Ratio 10.00 Glucose 118 H POC Glucose Calculated Osmolality 275.0 Calcium 7.8 L Magnesium 1.6 L - Impressions Impressions: Patient went into atrial fibrillation rapid ventricular response. Heart rate i.e. ventricular response 115 at this time. - EKG EKG results: interpreted by me, no acute changes EKG shows: atrial fibrillation Viktor Espinoza John Timothy, MD, personally performed the services described in this documentation, ascribed by Trinity Mejia RN in my presence, and it is both accurate and complete .
--- NOTE | 2016-08-27 11:31 | Discharge Summary ---
<Neyda Harris - Last Filed: 08/27/16 11:16> Hospital Course - Hospital Course Hospital Course: This is a chronically ill 65-year-old male that presented to the ED at [facility] on August 23, 2016 for evaluation of abdominal pain. The patient has a very complex medical history significant for: Obstructive sleep apnea, carcinoma of the prostate, esophageal varices, liver cirrhosis, atrial fibrillation, degenerative disc disease, hypertension, peripheral vascular disease, gouty arthritis, obesity, nicotine abuse, dyslipidemia, cerebrovascular accident, hypothyroidism, GERD , and owl-numwizy-ikwrmiaga diabetes. Patient has a surgical history significant for femoral-popliteal bypass of the right leg, colonoscopy, left total knee replacement, prostatectomy , hernia repair, multiple back surgeries with hardware placement, lung lobectomy , internal cardiac defibrillator placement, and prostatectomy. The patient reported the onset of symptoms 4 days prior to admission. He reported that he has required previous paracentesis in the past secondary to his liver cirrhosis. He reported that he no longer drinks. Chest x-ray was obtained which was essentially benign. X-ray of the abdomen reported nonspecific nonobstructive bowel gas pattern and no free intraperitoneal air. CT of abdomen and pelvis reported the following: Development of a very large amount of ascites, development of anasarca, development of a small right pleural effusion, stable cardiomegaly, interval decrease in the size of the liver with features suggesting cirrhosis, milk of calcium versus stones within the gallbladder, splenomegaly, pancreatic atrophy, right renal calculi, and hemorrhagic or partially calcified cyst on the right kidney. The patient was subsequently admitted to the hospitalist service for continuation of care. A cardiology, gastroenterology, and sleep medicine consult was requested at the time of admission. The patient was evaluated by gastroenterology. On August 24, 2016 the patient underwent a therapeutic ultrasound-guided paracentesis in which 9800 cc of straw -colored fluid was removed. There was concern for SBP, but fluid not sent for evaluation. He was treated for five days with a course of Rocephin. The patient was seen by sleep medicine, CPAP use was evaluated. The patient was evaluated by cardiology, he was evaluated, and monitored during the clinical encounter. He has chronic atrial fibrillation which has been more difficult to control given his blood pressure. His condition has improved greatly since admission. He has not experienced any significant overnight events. He is very eager for discharge. He has reached maximal benefit of inpatient stay and will be discharged home. Discharge Plan - Discharge Data Disposition: Disch To Home/Self Care - Discharge Medications New Spironolactone [Aldactone] 100 mg PO DAILY #30 tablet Continue Aspirin [Ecotrin] 81 mg PO DAILY Allopurinol [Zyloprim] 300 mg PO BID Levothyroxine Tab [Synthroid Tab] 125 mcg PO DAILY@0700 Metoprolol Tartrate Tab [Lopressor Tab] 50 mg PO BID #60 tablet Lactulose Liquid [Chronulac] 20 gm PO TID #2700 ml Pantoprazole Tab [Protonix Tab] 40 mg PO BEDTIME #30 tablet Hydrocodone/Acetaminophen [Hydrocodon-Acetaminoph 7.5-325] 1 tablet PO Q4HR PRN PRN Reason: Pain Omeprazole Magnesium [Prilosec] 20 mg PO DAILY Magnesium Oxide 400 mg PO BID #60 tablet Rifaximin [Xifaxan] 550 mg PO BID #60 tablet Furosemide 20 mg PO BID - Follow Up or Referral - Forms/Instructions Exam - Constitutional Vitals: Period Temp Pulse Resp BP Sys/Collins Pulse Ox Last 24 Hr 97.1 F-97.8 F 99-119 17-20 98-104/57-74 96-99 Discharge Results Procedures and tests throughout hospitalization: Pending Orders 08/23/16 15:47 Blood Culture Stat 08/25/16 01:12 Occult Blood, Stool Routine Labs on day of discharge: Labs from last 24 hours 08/27/16 08/27/16 08/26/16 03:18 03:18 15:47 WBC 5.9 RBC 3.05 L Hgb 9.6 L Hct 27.7 L MCV 90.8 MCH 32 MCHC 34.7 RDW 15.2 Plt Count 186 MPV 10.4 Neut % (Auto) 61.1 Lymph % (Auto) 25.4 [place] % (Auto) 8.6 Eos % (Auto) 3.7 Baso % (Auto) 1.0 H Neut # (Auto) 3.6 Lymph # (Auto) 1.5 [place] # (Auto) 0.5 Eos # (Auto) 0.2 Baso # (Auto) 0.1 Immature Gran % 0.2 Nucleated RBC % 0.3 Immature Gran # 0.01 Nucleated RBCs # 0.02 Sodium 136 Potassium 3.5 Chloride 100 Carbon Dioxide 25 Anion Gap 14.5 BUN 20 H Creatinine 1.90 H GFR Calculation 53 BUN/Creatinine Ratio 10.00 Glucose 118 H POC Glucose 171 H Calculated Osmolality 275.0 Calcium 7.8 L Magnesium 1.6 L Preliminary micro results at discharge 08/23/16 15:47 Blood Culture - Preliminary Blood No growth at 3 days 08/23/16 15:47 Blood Culture - Preliminary Blood No growth at 3 days DS: Provider Date of admission: 08/23/16 13:39 Primary care physician: Steven Álvarez DO Attending physician on admission: Rony Fink MD Consults: 08/23/16 15:35 Consult to Wound Care - [place] [CONS] Routine Reason for Wound Care: Wound Care Management 08/23/16 15:50 Consult to Physician [CONS] Routine Comment: Consulting Provider: Paul Reaves 08/23/16 16:55 Consult to Sleep Center [CONS] Routine Reason for Sleep Center: Sleep Center Physician 08/23/16 18:45 Consult to Physician [CONS] Routine Comment: sees dr mcdonald Consulting Provider: Cardiology - [facility] Person Notified: Cam Date Notified: 08/24/16 Time Notified: 08:15 08/24/16 10:49 Consult to Physician [CONS] Routine Comment: bilateral lower extremity wounds pt known to you Consulting Provider: Dwight Flores Person Notified: Alexa Date Notified: 08/24/16 Time Notified: 10:50 Discharging clinician: Neyda Harris CNP <Paulie Mccarthy - Last Filed: 08/27/16 12:14> Hospital Course - Time spent with patient Time with patient DS: Less than 30 minutes (28) Diagnosis - Discharge Diagnosis (1) Cirrhosis of liver Status: Chronic (2) Alcohol abuse Status: Chronic (3) Atrial fibrillation Status: Chronic (4) Alcoholic hepatitis with ascites Status: Chronic Discharge Plan - Discharge Data Condition at Discharge: Stable Discharge Diet: advance to your usual diet Activity: increase activity as tolerated Hygiene: no restrictions Weight Bearing at Discharge: weight bear as tolerated Driving: no restrictions Contact your physician if you experience:: fever over 101, Shortness of breath Exam - Constitutional General appearance: over weight - Head Head exam: Present: normocephalic, atraumatic - Eye Eye exam: Present: EOMI Pupils: Present: HERNANDEZ - ENT ENT exam: Present: normal exam - Neck Neck exam: Present: normal inspection - Respiratory Respiratory exam: Present: clear to auscultation bilaterally. Absent: rhonchi, wheezes - Cardiovascular Cardiovascular exam: Present: regular rate and rhythm - GI/Abdominal GI/Abdominal exam: Present: normal bowel sounds, soft. Absent: tenderness, rebound - Extremities Exam Extremities exam: Present: normal inspection - Back Exam Back exam: Present: normal inspection - Neurological Exam Neurological exam: Present: alert, oriented X3 - Psychiatric Psychiatric exam: Present: normal affect, normal mood - Skin Skin exam: Present: warm, intact
[2016-08-27 12:18] VITALS: BP 114/67
--- NOTE | 2016-08-27 14:10 | Gastrointestinal Progress Note ---
Assessment and Plan (1) Alcoholic cirrhosis of liver with ascites Status: Acute Assessment and plan: This patient has a history of alcoholic cirrhosis and has had recurrent problems with requiring paracentesis. I am not completely sure why he was released without Lasix with the patient is discontinued this medication as an outpatient. I felt that if his kidneys can handle the load we might want to use metolazone in addition to the Lasix and possibly his spironolactone to control his ascites in the future or at least decrease need for repeat paracentesis. I think with his creatinine 1.4 we certainly have room to move with these diuretics. This may need to wait until we can get his heart rhythm back under control. 08/27/16--the patient's creatinine has increased slightly from 1.4 up to 1.9 through his hospital stay. This is utilizing the Lasix 40 mg per day and spironolactone 100 mg per day. I believe this combination will likely keep his ascites from reaccumulating as quickly as previous. He will need follow-up with me in the office in another one month and likely obtained electrolytes at that time. Current Visit: No (2) Encephalopathy acute Status: Acute Assessment and plan: Continue to watch the ammonia level and use lactulose as needed versus Xifaxan twice daily. We will continue the latter and try and minimize the lactulose he requires on a daily basis. He really does not like that medication at all. 08/27/16--This patient is on Xifaxan twice daily at this time and will likely require a single dose of lactulose per day to help out with his hepatic encephalopathy. Current Visit: No (3) Esophageal varices without bleeding Status: Acute Assessment and plan: The patient has had low-grade varices in the past. He has been taking beta- blockers, his hematocrit is certainly low. I doubt that he is having a variceal bleed as this is not presenting with multiple bloody bowel movements and hematemesis and much worse encephalopathy as might be expected with digested blood. Continue to observe ammonia and keep a tab on the patient's hematocrit to follow this. We may consider doing endoscopy on Saturday if weekend coverage feels this would be helpful. 08/27/16--His hematocrit is remained stable over the weekend and he is certainly okay to be discharged at this time in my opinion concerning these varices. He is on metoprolol to control his heart rate/variceal bleeding risk.. Current Visit: No (4) Anemia Status: Chronic Assessment and plan: Decrease in hematocrit to 26%. We will need to continue to watch and will send stools for guaiac positivity, if this drops below 24% may need to consider upper endoscopy with potential banding given the dark stools the patient complains of over the last 3 days. 08/27/16--these parameters were not met in fact the patient's hematocrit improved to 27% through the hospital stay. Current Visit: Yes Gastroenterology - PN: Subj Interval history: Patient appears to be doing fairly well. The wounds on his thighs from his skin grafts are doing adequately. His left leg remains wrapped. His abdomen does not appear to be unusually swollen and he is tolerating approximately 50% of his tray adequately. He is reminded once again to eat a low sodium diet. He again reiterates how much he despises the lactulose and I promised him that we can come back to once a day when he leaves the hospital on that medication. We will have to keep an eye on his potassium leaving the hospital, due to the Lasix. Exam (Progress Note) - Constitutional Vitals: Period Temp Pulse Resp BP Sys/Collins Pulse Ox Last 24 Hr 97.1 F-97.8 F 99-119 16-20 88-114/57-74 94-99 General appearance: no acute distress - Head Head exam: Present: normocephalic, atraumatic - Eye Eye exam: Present: EOMI Pupils: Present: HERNANDEZ - Respiratory Respiratory exam: Present: clear to auscultation bilaterally. Absent: rhonchi, stridor, wheezes - Cardiovascular Cardiovascular exam: Present: regular rate and rhythm - GI/Abdominal GI/Abdominal exam: Present: normal bowel sounds, distended (Minimal distention.) , soft. Absent: guarding, tenderness, rebound - Extremities Exam Extremities exam: Present: edema (Mild +1 out of 2 swelling of bilateral legs this appears to be slightly worse on the left than the right and ends approximately just below the kneecaps bilaterally) - Neurological Exam Neurological exam: Present: alert, oriented X3, CN II-XII intact. Absent: motor sensory deficit - Psychiatric Psychiatric exam: Present: normal affect, normal mood - Skin Skin exam: Present: warm Results - Labs CBC & BMP: 08/27/16 03:18 08/27/16 03:18 Specialty Discharge - Follow Up or Referrals Follow up with: Dwight Flores MD [Physician] - 09/03/16 1:15 pm (appointment will be with Dr. Hill. Need to sign in at 1:15 PM.) Maureen Trevino MD [Physician] - 09/11/16 1:15 pm Олег Kunz MD [Physician] - (SINCE THE APPOINTMENT IS SO FAR OUT THE [facility]Y GROUP WILLCALL YOU WHEN TIME GETS CLOSER.)
[2016-08-27] MEDS: cefTRIAXone 1,000 MG in SODIUM CHLORIDE 0.9% 100 ML IV SCH (14:32)
--- NOTE | 2016-08-30 15:13 | Physician Query Form ---
CLICK EDIT DOCUMENT TO SELECT QUERY ANSWER --> OK --> SIGN Alexa Cordon RN Clinical Bath Tester W) [phone] (f) [phone] [email or web address] PROVIDERS: Make your selection(s) from the choices in EACH section by typing an "x" and enter comments in the comment section. Please use your independent medical judgment in providing your response. This request does not imply that any particular answer is desired or expected. CLINICAL INDICATORS: (Providers should not edit this section) Based on documentation of "Digoxin would be a consideration but with his renal insufficiency this would have to be done with caution" Creatinine from 1.5 to 1.9. GFR form 71 to 53. Monitored with serial lab checks. Treated with NS boluses and NS infusions. Clarify which of the following most accurately represents the patient's renal status: ( x) Acute kidney injury (non-traumatic) ( ) Acute renal failure ( ) Acute renal failure with underlying Chronic Kidney Disease (CKD) - please provide stage below ( ) Acute renal failure with pathological renal lesion ( ) Acute renal failure with necrosis ( ) tubular ( ) medullary ( ) cortical ( ) CKD - please provide stage below ( ) End Stage Renal Disease ( ) Acute interstitial nephritis ( ) Hepatorenal syndrome ( ) Other, please specify: ( ) Clinically unable to determine Chronic Kidney Disease Stages Source: National Kidney [employer] Foundation ( ) Stage I (eGFR > or = 90) ( ) Stage II (eGFR 60 - 89) ( ) Stage III (eGFR 30 - 59) ( ) Stage IV (eGFR 15 - 29) ( ) Stage V (eGFR < 15 or dialysis) COMMENTS: PLEASE ALSO DOCUMENT RESPONSE IN PROGRESS NOTES AND/OR DISCHARGE SUMMARY Use of terms such as suspected, likely, or probable (associated with a specific diagnosis that is being evaluated, monitored, or treated as if it exists) are acceptable and can be restated in the discharge summary if not ruled out. MTDD
== END 2016-08-27 16:15 | disposition home health service (06) | DRG 433 ==
LOC: EDBD → EDUNIT# → N.ED 12:08 → SUATTDRO 13:39 → N.EDINP 13:39 → N.TELES 13:57 → N.2E 08-25 15:44
PROVIDERS: ADMIT Internal Medicine; ATTEND Internal Medicine

== ENCOUNTER 2019-02-17 18:41 | Inpatient (IN) ==
[2019-02-17] MEDS ORDERED: VANCOMYCIN INJ 1,000 MG in SODIUM CHLORIDE 0.9% 250 ML IV STA (19:23)
[2019-02-17 20:19] LABS: Basophils # 0.1 10*3/uL (0.0-0.2); Basophils % 0.6 % (0.0-0.8); Eosinophils % 0.5 % (0.00-10.9); Hematocrit 38.4 VOL% (42.0-52.0); Hemoglobin 12.6 GM/DL (14.0-18.0); Immature Granulocytes % 0.6 %; Immature Granulocytes Absolute 0.05 #; Lymphocytes # 1.1 10*3/uL (1.4-4.0); Lymphocytes % 14.4 % (21.2-54.2); Mean Corpuscular HGB Conc 32.8 GM/DL (32-36); Mean Corpuscular Volume 92.1 FL (87-102); Mean Platelet Volume 10.5 FL (9.6-12.0); Neutrophils % 72.9 % (38.7-73.9); Platelet Count 123 T/CUMM (130-400); Red Blood Count 4.17 MC/CUMM (3.8-5.5); Red Cell Distribution Width 19.6 % (9.3-17.3); White Blood Count 7.9 T/CUMM (4-12)
[2019-02-17 20:35] LABS: Albumin 2.4 G/DL (3.4-5.0); Bilirubin,Total 3.2 MG/DL (0.2-1.0); Calcium 8.1 MG/DL (8.5-10.1); Osmolality,Calculated 274.1 MOS/KG (273-304); Total Protein 6.6 G/DL (6.4-8.3)
[2019-02-17 20:38] LABS: Troponin I < 0.015 NG/ML (0.00-0.045)
[2019-02-17 20:40] LABS: INR 1.2; PT Patient Result 13.2 SECS (9.6-12.2); Partial Thromboplastin Time 26.4 SECS (20.8-36.0)
[2019-02-17] MEDS ORDERED: SODIUM CHLORIDE 0.9% 1,000 ML IV STA (21:29)
[2019-02-17] MEDS ORDERED: MEPERIDINE 25 MG/1 ML VIAL IV STA (22:36)
[2019-02-18] MEDS ORDERED: DOCUSATE SODIUM 100 MG CAPSULE PO PRN (01:55)
[2019-02-18] MEDS ORDERED: ACETAMINOPHEN 325 MG TABLET PO PRN (01:55)
[2019-02-18] MEDS ORDERED: VANCOMYCIN INJ 2,000 MG in SODIUM CHLORIDE 0.9% 250 ML IV SCH (02:00)
[2019-02-18] MEDS ORDERED: oxyCODONE/ACETAMINOPHEN 5-325 MG TABLET PO PRN (02:05)
[2019-02-18] MEDS: HYDROmorphone 2 MG/1 ML VIAL IV PRN (02:42)
[2019-02-18 05:32] LABS: Calcium 7.6 MG/DL (8.5-10.1); Osmolality,Calculated 275.7 MOS/KG (273-304); Thyroid Stimulating Hormone 2.49 uIU/ml (0.358-3.74)
[2019-02-18] MEDS: LEVOTHYROXINE 125 MCG TABLET PO SCH (05:36)
[2019-02-18 06:04] LABS: Basophils % 0.7 % (0.0-0.8); Eosinophils # 0.1 10*3/uL (0.0-0.87); Eosinophils % 0.9 % (0.00-10.9); Hematocrit 33.6 VOL% (42.0-52.0); Hemoglobin 11.4 GM/DL (14.0-18.0); Immature Granulocytes % 0.4 %; Immature Granulocytes Absolute 0.02 #; Lymphocytes # 1.1 10*3/uL (1.4-4.0); Lymphocytes % 19.1 % (21.2-54.2); Mean Corpuscular HGB Conc 33.9 GM/DL (32-36); Mean Corpuscular Volume 89.6 FL (87-102); Mean Platelet Volume 10.1 FL (9.6-12.0); Monocytes % 10.9 % (1.7-12.7); Red Blood Count 3.75 MC/CUMM (3.8-5.5); White Blood Count 5.6 T/CUMM (4-12)
[2019-02-18 06:06] LABS: Platelet Count 84 T/CUMM (130-400)
[2019-02-18 06:23] LABS: Hypochromasia 1+; Platelet Estimate Decreased
[2019-02-18] MEDS: VANCOMYCIN INJ 2,000 MG in SODIUM CHLORIDE 0.9% 500 ML IV SCH ×2 (09:25→22:06)
[2019-02-18] MEDS: LACTULOSE 20 GM/30 ML UDCUP PO SCH (09:25)
[2019-02-18] MEDS: RIFAXIMIN 550 MG TABLET PO SCH ×2 (09:25→22:09)
[2019-02-18] MEDS: ASPIRIN EC 81 MG TABLET PO SCH (09:25)
[2019-02-18] MEDS: ONDANSETRON 4 MG/2 ML VIAL IV PRN ×2 (10:02→17:17)
[2019-02-18] MEDS: COLLAGENASE OINT 30 GM TUBE TOP SCH (17:20)
[2019-02-18] MEDS: MAGNESIUM CHLORIDE 64 MG TABLET PO SCH (22:08)
[2019-02-18] MEDS: METOPROLOL TARTRATE 25 MG TABLET PO SCH (22:09)
[2019-02-18] MEDS: CYCLOBENZAPRINE 10 MG TABLET PO SCH (22:09)
[2019-02-18] MEDS: PANTOPRAZOLE 40 MG TABLET PO SCH (22:09)
[2019-02-18] MEDS: DICLOFENAC 1.3% PATCH 5/PACK TRANSDERM SCH (22:10)
[2019-02-19 06:12] LABS: Basophils % 0.7 % (0.0-0.8); Eosinophils # 0.1 10*3/uL (0.0-0.87); Eosinophils % 1.7 % (0.00-10.9); Hematocrit 33.7 VOL% (42.0-52.0); Hemoglobin 11.3 GM/DL (14.0-18.0); Immature Granulocytes % 0.2 %; Immature Granulocytes Absolute 0.01 #; Lymphocytes # 1.1 10*3/uL (1.4-4.0); Lymphocytes % 18.2 % (21.2-54.2); Mean Corpuscular HGB Conc 33.5 GM/DL (32-36); Mean Corpuscular Volume 92.3 FL (87-102); Mean Platelet Volume 11.1 FL (9.6-12.0); Monocytes % 11.5 % (1.7-12.7); Neutrophils % 67.7 % (38.7-73.9); Red Blood Count 3.65 MC/CUMM (3.8-5.5); Red Cell Distribution Width 19.3 % (9.3-17.3); White Blood Count 5.8 T/CUMM (4-12)
[2019-02-19 06:15] LABS: Platelet Count 83 T/CUMM (130-400)
[2019-02-19 06:29] LABS: Calcium 7.9 MG/DL (8.5-10.1); Osmolality,Calculated 273.8 MOS/KG (273-304)
[2019-02-19] MEDS: LEVOTHYROXINE 125 MCG TABLET PO SCH (07:00)
[2019-02-19] MEDS: ASPIRIN EC 81 MG TABLET PO SCH (08:27)
[2019-02-19] MEDS: LACTULOSE 20 GM/30 ML UDCUP PO SCH (08:27)
[2019-02-19] MEDS: POTASSIUM CHLORIDE 20 MEQ TABLET PO SCH (08:27)
[2019-02-19] MEDS: SPIRONOLACTONE 50 MG TABLET PO SCH (08:27)
[2019-02-19] MEDS: FUROSEMIDE 40 MG TABLET PO SCH (08:27)
[2019-02-19] MEDS: DICLOFENAC 1.3% PATCH 5/PACK TRANSDERM SCH ×2 (08:27→21:10)
[2019-02-19] MEDS: CYCLOBENZAPRINE 10 MG TABLET PO SCH ×4 (08:27→21:10)
[2019-02-19] MEDS: ALLOPURINOL 300 MG TABLET PO SCH (08:28)
[2019-02-19] MEDS: RIFAXIMIN 550 MG TABLET PO SCH ×2 (08:28→21:11)
[2019-02-19] MEDS: MAGNESIUM CHLORIDE 64 MG TABLET PO SCH ×2 (08:28→21:10)
[2019-02-19] MEDS: COLLAGENASE OINT 30 GM TUBE TOP SCH (08:28)
[2019-02-19] MEDS: ESCITALOPRAM 10 MG TABLET PO SCH (08:28)
[2019-02-19] MEDS: METOPROLOL TARTRATE 25 MG TABLET PO SCH ×2 (08:44→21:10)
[2019-02-19] MEDS: VANCOMYCIN INJ 2,000 MG in SODIUM CHLORIDE 0.9% 500 ML IV SCH ×2 (09:36→21:12)
[2019-02-19] MEDS: ONDANSETRON 4 MG/2 ML VIAL IV PRN (09:37)
[2019-02-19] MEDS ORDERED: LIDOCAINE 1% 20 ML VIAL ONE (12:28)
[2019-02-19] MEDS ORDERED: LIDOCAINE 2% 5 ML VIAL ONE (13:33)
[2019-02-19] MEDS ORDERED: PROPOFOL 200 MG/20 ML VIAL IV ONE (13:33)
[2019-02-19] MEDS ORDERED: fentaNYL 100 MCG/2 ML VIAL ONE (13:33)
[2019-02-19] MEDS ORDERED: MIDAZOLAM 2 MG/2 ML VIAL ONE (13:34)
[2019-02-19] MEDS: PANTOPRAZOLE 40 MG TABLET PO SCH (21:10)
[2019-02-20] MEDS: HYDROmorphone 2 MG/1 ML VIAL IV PRN (02:23)
[2019-02-20] MEDS: LEVOTHYROXINE 125 MCG TABLET PO SCH (05:52)
[2019-02-20] MEDS: ALLOPURINOL 300 MG TABLET PO SCH (09:48)
[2019-02-20] MEDS: MAGNESIUM CHLORIDE 64 MG TABLET PO SCH (09:48)
[2019-02-20] MEDS: LACTULOSE 20 GM/30 ML UDCUP PO SCH (09:48)
[2019-02-20] MEDS: ASPIRIN EC 81 MG TABLET PO SCH (09:48)
[2019-02-20] MEDS: CYCLOBENZAPRINE 10 MG TABLET PO SCH ×2 (09:49→13:41)
[2019-02-20] MEDS: METOPROLOL TARTRATE 25 MG TABLET PO SCH (09:49)
[2019-02-20] MEDS: POTASSIUM CHLORIDE 20 MEQ TABLET PO SCH (09:49)
[2019-02-20] MEDS: FUROSEMIDE 40 MG TABLET PO SCH (09:49)
[2019-02-20] MEDS: SPIRONOLACTONE 50 MG TABLET PO SCH (09:49)
[2019-02-20] MEDS: ESCITALOPRAM 10 MG TABLET PO SCH (09:49)
[2019-02-20] MEDS: RIFAXIMIN 550 MG TABLET PO SCH (09:49)
[2019-02-20 11:29] VITALS: BP 97/61
[2019-02-20] MEDS: COLLAGENASE OINT 30 GM TUBE TOP SCH (12:55)
[2019-02-20] MEDS: DICLOFENAC 1.3% PATCH 5/PACK TRANSDERM SCH (12:55)
== END 2019-02-20 14:19 | disposition home health service (06) | DRG 240 ==
LOC: N.ED 18:41 → N.EDINP 02-18 00:32 → SUATTDRO 02-18 00:32 → N.3E 02-18 00:41
PROVIDERS: ADMIT Internal Medicine; ATTEND Internal Medicine

== ENCOUNTER 2019-04-26 10:46 | Inpatient (IN) ==
[2019-04-26] MEDS ORDERED: PIPERACILLIN/TAZOBACTAM 3,375 MG in SODIUM CHLORIDE 0.9% 100 ML IV STA (11:24)
[2019-04-26 12:12] LABS: Basophils % 0.4 % (0.0-0.8); Eosinophils # 0.1 10*3/uL (0.0-0.87); Eosinophils % 0.8 % (0.00-10.9); Hematocrit 39.8 VOL% (42.0-52.0); Hemoglobin 13.7 GM/DL (14.0-18.0); Immature Granulocytes % 0.5 %; Immature Granulocytes Absolute 0.04 #; Lymphocytes # 1.5 10*3/uL (1.4-4.0); Lymphocytes % 17.3 % (21.2-54.2); Mean Corpuscular HGB Conc 34.4 GM/DL (32-36); Mean Platelet Volume 10.1 FL (9.6-12.0); Monocytes % 10.2 % (1.7-12.7); Neutrophils % 70.8 % (38.7-73.9); Platelet Count 157 T/CUMM (130-400); Red Blood Count 3.94 MC/CUMM (3.8-5.5); Red Cell Distribution Width 16.8 % (9.3-17.3); White Blood Count 8.4 T/CUMM (4-12)
[2019-04-26] MEDS ORDERED: ACETAMINOPHEN 325 MG TABLET PO PRN (12:26)
[2019-04-26] MEDS ORDERED: ONDANSETRON 4 MG/2 ML VIAL IV PRN (12:26)
[2019-04-26] MEDS ORDERED: PROMETHAZINE 25 MG/1 ML VIAL IM PRN (12:26)
[2019-04-26 12:37] LABS: Calcium 8.9 MG/DL (8.5-10.1); Osmolality,Calculated 265.5 MOS/KG (273-304)
[2019-04-26] MEDS ORDERED: SODIUM CHLORIDE 0.9% 500 ML IV STA (13:19)
[2019-04-26] MEDS ORDERED: SODIUM CHLORIDE 0.9% 1,000 ML IV ONE (13:48)
[2019-04-26] MEDS ORDERED: INFLUENZA VIRUS VACCINE 0.5 ML SYRINGE IM ONE (14:59)
[2019-04-26] MEDS: SODIUM CHLORIDE 0.9% 1,000 ML IV SCH ×2 (16:42→22:00)
[2019-04-26] MEDS: POTASSIUM CHLORIDE 20 MEQ TABLET PO SCH (20:22)
[2019-04-26] MEDS: MAGNESIUM CHLORIDE 64 MG TABLET PO SCH (20:22)
[2019-04-26] MEDS: METOPROLOL TARTRATE 100 MG TABLET PO SCH (20:22)
[2019-04-26] MEDS: RIFAXIMIN 550 MG TABLET PO SCH (20:22)
[2019-04-26] MEDS: CYCLOBENZAPRINE 10 MG TABLET PO SCH (20:23)
[2019-04-26] MEDS: PIPERACILLIN/TAZOBACTAM 3,375 MG in SODIUM CHLORIDE 0.9% 100 ML IV SCH (20:23)
[2019-04-27] MEDS ORDERED: LACTATED RINGERS 1,000 ML IV SCH (00:01)
[2019-04-27] MEDS ORDERED: SODIUM CHLORIDE 0.9% 1,000 ML IV SCH (00:01)
[2019-04-27 01:45] LABS: Basophils % 0.5 % (0.0-0.8); Eosinophils # 0.1 10*3/uL (0.0-0.87); Eosinophils % 1.8 % (0.00-10.9); Hematocrit 35.4 VOL% (42.0-52.0); Hemoglobin 12.5 GM/DL (14.0-18.0); Immature Granulocytes % 0.5 %; Immature Granulocytes Absolute 0.04 #; Lymphocytes # 1.7 10*3/uL (1.4-4.0); Lymphocytes % 22.8 % (21.2-54.2); Mean Corpuscular HGB Conc 35.3 GM/DL (32-36); Mean Corpuscular Volume 99.4 FL (87-102); Mean Platelet Volume 10.7 FL (9.6-12.0); Monocytes % 11.4 % (1.7-12.7); Platelet Count 137 T/CUMM (130-400); Red Blood Count 3.56 MC/CUMM (3.8-5.5); Red Cell Distribution Width 16.5 % (9.3-17.3); White Blood Count 7.4 T/CUMM (4-12)
[2019-04-27 02:01] LABS: Calcium 8.2 MG/DL (8.5-10.1); Osmolality,Calculated 269.9 MOS/KG (273-304)
[2019-04-27] MEDS: PIPERACILLIN/TAZOBACTAM 3,375 MG in SODIUM CHLORIDE 0.9% 100 ML IV SCH ×3 (04:58→20:22)
[2019-04-27] MEDS: LEVOTHYROXINE 125 MCG TABLET PO SCH (06:03)
[2019-04-27] MEDS: SODIUM CHLORIDE 0.9% 1,000 ML IV SCH ×2 (06:07→18:37)
[2019-04-27] MEDS ORDERED: propofoL 200 MG/20 ML VIAL IV ONE (09:33)
[2019-04-27] MEDS ORDERED: MIDAZOLAM 2 MG/2 ML VIAL ONE (09:33)
[2019-04-27] MEDS ORDERED: KETAMINE 500 MG/10 ML VIAL ONE (09:33)
[2019-04-27] MEDS ORDERED: LIDOCAINE 2% 5 ML VIAL ONE (09:34)
[2019-04-27] MEDS ORDERED: GLYCOPYRROLATE 0.4 MG/2 ML VIAL ONE (09:34)
[2019-04-27] MEDS ORDERED: PHENYLEPHRINE 1 MG/10 ML SYRINGE IV ONE (09:34)
[2019-04-27] MEDS ORDERED: ETOMIDATE 40 MG/20 ML VIAL IV ONE (09:34)
[2019-04-27] MEDS ORDERED: MAGNESIUM SULF RIDER 2 GM in PREMIX 1 EACH IV PRN (09:37)
[2019-04-27] MEDS ORDERED: MAGNESIUM SULF RIDER 4 GM in PREMIX 1 EACH IV PRN (09:37)
[2019-04-27] MEDS: LACTULOSE 20 GM/30 ML UDCUP PO SCH ×2 (10:43→10:49)
[2019-04-27] MEDS: METOPROLOL TARTRATE 100 MG TABLET PO SCH ×2 (10:44→20:23)
[2019-04-27] MEDS: PANTOPRAZOLE 40 MG TABLET PO SCH (10:44)
[2019-04-27] MEDS: MAGNESIUM CHLORIDE 64 MG TABLET PO SCH ×2 (10:44→20:22)
[2019-04-27] MEDS: PROPRANOLOL 40 MG TABLET PO SCH (10:44)
[2019-04-27] MEDS: CYCLOBENZAPRINE 10 MG TABLET PO SCH ×2 (10:44→20:23)
[2019-04-27] MEDS: POTASSIUM CHLORIDE 20 MEQ TABLET PO SCH ×2 (10:44→20:22)
[2019-04-27] MEDS: RIFAXIMIN 550 MG TABLET PO SCH ×2 (10:45→20:23)
[2019-04-28] MEDS: SODIUM CHLORIDE 0.9% 1,000 ML IV SCH ×2 (01:58→06:32)
[2019-04-28] MEDS: PIPERACILLIN/TAZOBACTAM 3,375 MG in SODIUM CHLORIDE 0.9% 100 ML IV SCH ×2 (03:16→12:24)
[2019-04-28] MEDS: LEVOTHYROXINE 125 MCG TABLET PO SCH (06:02)
[2019-04-28 06:36] LABS: Basophils % 0.7 % (0.0-0.8); Eosinophils # 0.1 10*3/uL (0.0-0.87); Eosinophils % 2.4 % (0.00-10.9); Hematocrit 36.4 VOL% (42.0-52.0); Hemoglobin 12.3 GM/DL (14.0-18.0); Immature Granulocytes % 0.3 %; Immature Granulocytes Absolute 0.02 #; Lymphocytes # 1.1 10*3/uL (1.4-4.0); Lymphocytes % 19.7 % (21.2-54.2); Mean Corpuscular HGB Conc 33.8 GM/DL (32-36); Mean Corpuscular Volume 102.8 FL (87-102); Mean Platelet Volume 10.1 FL (9.6-12.0); Monocytes % 11.6 % (1.7-12.7); Neutrophils % 65.3 % (38.7-73.9); Platelet Count 108 T/CUMM (130-400); Red Blood Count 3.54 MC/CUMM (3.8-5.5); Red Cell Distribution Width 16.7 % (9.3-17.3); White Blood Count 5.8 T/CUMM (4-12)
[2019-04-28 06:59] LABS: Albumin 1.9 G/DL (3.4-5.0); Bilirubin,Total 3.6 MG/DL (0.2-1.0); Calcium 8.4 MG/DL (8.5-10.1); Osmolality,Calculated 278.5 MOS/KG (273-304); Total Protein 5.9 G/DL (6.4-8.3)
[2019-04-28 07:04] VITALS: BP 90/71
[2019-04-28 07:36] LABS: INR 1.2; PT Patient Result 13.1 SECS (9.6-12.2)
[2019-04-28] MEDS: LACTULOSE 20 GM/30 ML UDCUP PO SCH (08:03)
[2019-04-28] MEDS: PROPRANOLOL 40 MG TABLET PO SCH (08:04)
[2019-04-28] MEDS: METOPROLOL TARTRATE 100 MG TABLET PO SCH ×2 (08:05→08:10)
[2019-04-28] MEDS: RIFAXIMIN 550 MG TABLET PO SCH (08:08)
[2019-04-28] MEDS: POTASSIUM CHLORIDE 20 MEQ TABLET PO SCH (08:08)
[2019-04-28] MEDS: PANTOPRAZOLE 40 MG TABLET PO SCH (08:09)
[2019-04-28] MEDS: MAGNESIUM CHLORIDE 64 MG TABLET PO SCH (08:09)
[2019-04-28] MEDS: CYCLOBENZAPRINE 10 MG TABLET PO SCH (08:09)
[2019-04-28] MEDS: DIGOXIN 0.25 MG TABLET PO SCH ×2 (11:40→12:42)
[2019-05-01] MEDS ORDERED: DIGOXIN 0.125 MG TABLET PO SCH (11:30)
== END 2019-04-28 13:07 | disposition home or self-care (01) | DRG 239 ==
LOC: N.ED 10:46 → N.EDINP 11:56 → N.3E 12:20
PROVIDERS: ADMIT Surgery; ATTEND Surgery

== ENCOUNTER 2019-05-01 11:23 | Inpatient (IN) ==
[2019-05-01 12:15] LABS: Basophils % 0.4 % (0.0-0.8); Eosinophils # 0.2 10*3/uL (0.0-0.87); Eosinophils % 1.8 % (0.00-10.9); Hematocrit 37.9 VOL% (42.0-52.0); Hemoglobin 13.1 GM/DL (14.0-18.0); Immature Granulocytes % 0.6 %; Immature Granulocytes Absolute 0.06 #; Lymphocytes # 1.6 10*3/uL (1.4-4.0); Lymphocytes % 16.8 % (21.2-54.2); Mean Corpuscular HGB Conc 34.6 GM/DL (32-36); Mean Corpuscular Volume 102.7 FL (87-102); Mean Platelet Volume 10.3 FL (9.6-12.0); Monocytes % 8.6 % (1.7-12.7); Neutrophils % 71.8 % (38.7-73.9); Platelet Count 121 T/CUMM (130-400); Red Blood Count 3.69 MC/CUMM (3.8-5.5); Red Cell Distribution Width 16.3 % (9.3-17.3); White Blood Count 9.3 T/CUMM (4-12)
[2019-05-01 12:25] LABS: INR 1.2; PT Patient Result 12.7 SECS (9.6-12.2)
[2019-05-01 12:33] LABS: Calcium 8.3 MG/DL (8.5-10.1); Osmolality,Calculated 269.2 MOS/KG (273-304)
[2019-05-01] MEDS ORDERED: PIPERACILLIN/TAZOBACTAM 3,375 MG in SODIUM CHLORIDE 0.9% 100 ML IV STA (12:50)
[2019-05-01] MEDS ORDERED: VANCOMYCIN INJ 1,000 MG in SODIUM CHLORIDE 0.9% 250 ML IV STA (12:50)
[2019-05-01] MEDS ORDERED: LACTULOSE 20 GM/30 ML UDCUP PO PRN (14:48)
[2019-05-01] MEDS ORDERED: oxyCODONE/ACETAMINOPHEN 5-325 MG TABLET PO PRN (14:48)
[2019-05-01] MEDS ORDERED: ALBUTEROL/IPRATROPIUM 3 ML NEB RESP TX PRN (14:56)
[2019-05-01] MEDS ORDERED: ACETAMINOPHEN 325 MG TABLET PO PRN (14:56)
[2019-05-01] MEDS ORDERED: GLUCAGON 1 MG VIAL IM PRN (14:56)
[2019-05-01] MEDS ORDERED: DEXTROSE 10% 25 GM/250 ML BAG IV PRN (14:56)
[2019-05-01] MEDS ORDERED: ONDANSETRON 4 MG/2 ML VIAL IV PRN (14:56)
[2019-05-01] MEDS ORDERED: BISACODYL 5 MG TABLET PO PRN (14:56)
[2019-05-01] MEDS ORDERED: HYDROmorphone 2 MG/1 ML VIAL IV PRN (14:56)
[2019-05-01] MEDS ORDERED: VANCOMYCIN INJ 750 MG in SODIUM CHLORIDE 0.9% 250 ML IV ONE (18:00)
[2019-05-01] MEDS: INSULIN LISPRO 100 UNIT/ML SUBCUT SCH (18:01)
[2019-05-01] MEDS: FUROSEMIDE 20 MG TABLET PO SCH (19:15)
[2019-05-01] MEDS ORDERED: POTASSIUM CHLORIDE 20 MEQ TABLET PO SCH (21:00)
[2019-05-01] MEDS: METOPROLOL TARTRATE 100 MG TABLET PO SCH (21:51)
[2019-05-01] MEDS: RIFAXIMIN 550 MG TABLET PO SCH (21:51)
[2019-05-01] MEDS: allopurinoL 300 MG TABLET PO SCH (21:52)
[2019-05-01] MEDS: PANTOPRAZOLE 40 MG TABLET PO SCH (21:52)
[2019-05-01] MEDS: MAGNESIUM CHLORIDE 64 MG TABLET PO SCH (21:53)
[2019-05-01] MEDS: PIPERACILLIN/TAZOBACTAM 3,375 MG in SODIUM CHLORIDE 0.9% 100 ML IV SCH (23:31)
[2019-05-02] MEDS ORDERED: BUPIVACAINE MPF 0.25% 30 ML VIAL ONE (06:37)
[2019-05-02] MEDS ORDERED: LIDOCAINE 1% 20 ML VIAL ONE (06:37)
[2019-05-02] MEDS: PIPERACILLIN/TAZOBACTAM 3,375 MG in SODIUM CHLORIDE 0.9% 100 ML IV SCH ×3 (07:10→23:50)
[2019-05-02 07:11] LABS: Basophils # 0.1 10*3/uL (0.0-0.2); Basophils % 0.8 % (0.0-0.8); Eosinophils # 0.2 10*3/uL (0.0-0.87); Eosinophils % 2.2 % (0.00-10.9); Hematocrit 36.1 VOL% (42.0-52.0); Hemoglobin 12.4 GM/DL (14.0-18.0); Immature Granulocytes % 0.5 %; Immature Granulocytes Absolute 0.04 #; Lymphocytes # 1.3 10*3/uL (1.4-4.0); Lymphocytes % 16.9 % (21.2-54.2); Mean Corpuscular HGB Conc 34.3 GM/DL (32-36); Mean Corpuscular Volume 100.8 FL (87-102); Mean Platelet Volume 10.3 FL (9.6-12.0); Monocytes % 11.5 % (1.7-12.7); Neutrophils % 68.1 % (38.7-73.9); Platelet Count 106 T/CUMM (130-400); Red Blood Count 3.58 MC/CUMM (3.8-5.5); Red Cell Distribution Width 16.1 % (9.3-17.3); White Blood Count 7.9 T/CUMM (4-12)
[2019-05-02 07:28] LABS: Calcium 8.9 MG/DL (8.5-10.1); Osmolality,Calculated 266.2 MOS/KG (273-304)
[2019-05-02 07:30] LABS: Albumin 1.8 G/DL (3.4-5.0); Bilirubin,Direct 1.74 MG/DL (0.0-0.20); Bilirubin,Indirect 0.8 MG/DL (0.0-1.0); Bilirubin,Total 2.5 MG/DL (0.2-1.0); Calcium 8.7 MG/DL (8.5-10.1); Osmolality,Calculated 269.9 MOS/KG (273-304); Total Protein 6.1 G/DL (6.4-8.3)
[2019-05-02] MEDS: LEVOTHYROXINE 125 MCG TABLET PO SCH (08:00)
[2019-05-02] MEDS ORDERED: SODIUM POLYSTYRENE SULFATE 15 GM/60 ML BOTTLE PO STA (08:31)
[2019-05-02] MEDS ORDERED: SODIUM CHLORIDE 1 GM TABLET PO SCH (09:00)
[2019-05-02] MEDS ORDERED: LIDOCAINE 2% 5 ML VIAL ONE (09:17)
[2019-05-02] MEDS ORDERED: propofoL 200 MG/20 ML VIAL IV ONE (09:17)
[2019-05-02] MEDS ORDERED: KETAMINE 500 MG/10 ML VIAL ONE (09:18)
[2019-05-02] MEDS ORDERED: MIDAZOLAM 2 MG/2 ML VIAL ONE (09:18)
[2019-05-02] MEDS ORDERED: SODIUM CHLORIDE 0.9% 100 ML IV ONE (09:19)
[2019-05-02] MEDS ORDERED: PHENYLEPHRINE 1 MG/10 ML SYRINGE IV ONE (09:19)
[2019-05-02] MEDS: INSULIN LISPRO 100 UNIT/ML SUBCUT SCH ×3 (09:31→16:20)
[2019-05-02] MEDS: FUROSEMIDE 40 MG TABLET PO SCH (10:16)
[2019-05-02] MEDS: ASPIRIN EC 81 MG TABLET PO SCH (10:16)
[2019-05-02] MEDS: METOPROLOL TARTRATE 100 MG TABLET PO SCH ×2 (10:16→22:20)
[2019-05-02] MEDS: MAGNESIUM CHLORIDE 64 MG TABLET PO SCH ×2 (10:16→22:24)
[2019-05-02] MEDS: SPIRONOLACTONE 100 MG TABLET PO SCH (10:16)
[2019-05-02] MEDS: ESCITALOPRAM 10 MG TABLET PO SCH (10:16)
[2019-05-02] MEDS: RIFAXIMIN 550 MG TABLET PO SCH ×2 (10:17→22:24)
[2019-05-02 13:35] LABS: Calcium 8.8 MG/DL (8.5-10.1); Osmolality,Calculated 265.4 MOS/KG (273-304)
[2019-05-02] MEDS: VANCOMYCIN INJ 1,750 MG in SODIUM CHLORIDE 0.9% 500 ML IV SCH (17:55)
[2019-05-02] MEDS: FUROSEMIDE 20 MG TABLET PO SCH (18:24)
[2019-05-02] MEDS: PANTOPRAZOLE 40 MG TABLET PO SCH (22:24)
[2019-05-02] MEDS: allopurinoL 300 MG TABLET PO SCH (22:24)
[2019-05-03 05:09] LABS: Basophils % 0.5 % (0.0-0.8); Eosinophils # 0.1 10*3/uL (0.0-0.87); Eosinophils % 1.5 % (0.00-10.9); Hemoglobin 11.8 GM/DL (14.0-18.0); Immature Granulocytes % 0.4 %; Immature Granulocytes Absolute 0.03 #; Lymphocytes # 1.4 10*3/uL (1.4-4.0); Lymphocytes % 17.2 % (21.2-54.2); Mean Corpuscular HGB Conc 34.7 GM/DL (32-36); Mean Corpuscular Volume 100.9 FL (87-102); Mean Platelet Volume 10.8 FL (9.6-12.0); Monocytes % 10.8 % (1.7-12.7); Neutrophils % 69.6 % (38.7-73.9); Platelet Count 107 T/CUMM (130-400); Red Blood Count 3.37 MC/CUMM (3.8-5.5); Red Cell Distribution Width 16.1 % (9.3-17.3); White Blood Count 7.9 T/CUMM (4-12)
[2019-05-03 05:37] LABS: Albumin 1.7 G/DL (3.4-5.0); Bilirubin,Direct 1.66 MG/DL (0.0-0.20); Bilirubin,Total 2.7 MG/DL (0.2-1.0); Calcium 8.5 MG/DL (8.5-10.1); Osmolality,Calculated 275.7 MOS/KG (273-304); Total Protein 5.7 G/DL (6.4-8.3)
[2019-05-03] MEDS: PIPERACILLIN/TAZOBACTAM 3,375 MG in SODIUM CHLORIDE 0.9% 100 ML IV SCH ×2 (06:50→16:30)
[2019-05-03] MEDS: LEVOTHYROXINE 125 MCG TABLET PO SCH (06:50)
[2019-05-03] MEDS: INSULIN LISPRO 100 UNIT/ML SUBCUT SCH ×3 (08:00→16:47)
[2019-05-03] MEDS: FUROSEMIDE 40 MG TABLET PO SCH (09:38)
[2019-05-03] MEDS: ESCITALOPRAM 10 MG TABLET PO SCH (09:39)
[2019-05-03] MEDS: MAGNESIUM CHLORIDE 64 MG TABLET PO SCH ×2 (09:39→21:58)
[2019-05-03] MEDS: RIFAXIMIN 550 MG TABLET PO SCH ×2 (09:40→21:59)
[2019-05-03] MEDS: SPIRONOLACTONE 100 MG TABLET PO SCH (09:40)
[2019-05-03] MEDS: METOPROLOL TARTRATE 100 MG TABLET PO SCH ×2 (09:40→21:58)
[2019-05-03] MEDS: ASPIRIN EC 81 MG TABLET PO SCH (09:40)
[2019-05-03] MEDS: SODIUM HYPOCHLORITE 0.25% IRRIG 473 ML BOTTLE TOP SCH (12:15)
[2019-05-03] MEDS: FUROSEMIDE 20 MG TABLET PO SCH (18:38)
[2019-05-03] MEDS: VANCOMYCIN INJ 1,750 MG in SODIUM CHLORIDE 0.9% 500 ML IV SCH (21:00)
[2019-05-03] MEDS: PANTOPRAZOLE 40 MG TABLET PO SCH (21:58)
[2019-05-03] MEDS: allopurinoL 300 MG TABLET PO SCH (21:59)
[2019-05-04] MEDS: PIPERACILLIN/TAZOBACTAM 3,375 MG in SODIUM CHLORIDE 0.9% 100 ML IV SCH ×3 (01:38→18:00)
[2019-05-04] MEDS: LEVOTHYROXINE 125 MCG TABLET PO SCH (06:38)
[2019-05-04 06:44] LABS: Albumin 1.9 G/DL (3.4-5.0); Bilirubin,Direct 1.43 MG/DL (0.0-0.20); Bilirubin,Indirect 0.8 MG/DL (0.0-1.0); Bilirubin,Total 2.2 MG/DL (0.2-1.0); Calcium 8.6 MG/DL (8.5-10.1); Osmolality,Calculated 273.9 MOS/KG (273-304); Total Protein 6.1 G/DL (6.4-8.3)
[2019-05-04] MEDS: INSULIN LISPRO 100 UNIT/ML SUBCUT SCH ×3 (07:53→17:16)
[2019-05-04 07:58] LABS: Basophils % 0.6 % (0.0-0.8); Eosinophils # 0.1 10*3/uL (0.0-0.87); Eosinophils % 1.8 % (0.00-10.9); Hemoglobin 11.7 GM/DL (14.0-18.0); Immature Granulocytes % 0.6 %; Immature Granulocytes Absolute 0.04 #; Lymphocytes # 1.7 10*3/uL (1.4-4.0); Lymphocytes % 24.2 % (21.2-54.2); Mean Corpuscular HGB Conc 34.4 GM/DL (32-36); Mean Corpuscular Volume 100.6 FL (87-102); Mean Platelet Volume 10.3 FL (9.6-12.0); Monocytes % 11.5 % (1.7-12.7); Neutrophils % 61.3 % (38.7-73.9); Red Blood Count 3.38 MC/CUMM (3.8-5.5); Red Cell Distribution Width 15.9 % (9.3-17.3); White Blood Count 7.1 T/CUMM (4-12)
[2019-05-04 08:02] LABS: Platelet Count 98 T/CUMM (130-400)
[2019-05-04] MEDS: METOPROLOL TARTRATE 100 MG TABLET PO SCH ×2 (10:05→23:10)
[2019-05-04] MEDS: SPIRONOLACTONE 100 MG TABLET PO SCH (10:05)
[2019-05-04] MEDS: RIFAXIMIN 550 MG TABLET PO SCH ×2 (10:05→23:11)
[2019-05-04] MEDS: ESCITALOPRAM 10 MG TABLET PO SCH (10:05)
[2019-05-04] MEDS: ASPIRIN EC 81 MG TABLET PO SCH (10:05)
[2019-05-04] MEDS: MAGNESIUM CHLORIDE 64 MG TABLET PO SCH ×2 (10:05→23:11)
[2019-05-04] MEDS: FUROSEMIDE 40 MG TABLET PO SCH (10:05)
[2019-05-04] MEDS: SODIUM HYPOCHLORITE 0.25% IRRIG 473 ML BOTTLE TOP SCH (13:15)
[2019-05-04] MEDS: DIGOXIN 0.125 MG TABLET PO SCH (13:45)
[2019-05-04] MEDS: FUROSEMIDE 20 MG TABLET PO SCH (18:00)
[2019-05-04] MEDS: PANTOPRAZOLE 40 MG TABLET PO SCH (23:11)
[2019-05-05] MEDS: PIPERACILLIN/TAZOBACTAM 3,375 MG in SODIUM CHLORIDE 0.9% 100 ML IV SCH ×3 (01:10→16:40)
[2019-05-05 06:07] LABS: Calcium 8.8 MG/DL (8.5-10.1); Osmolality,Calculated 272.8 MOS/KG (273-304)
[2019-05-05] MEDS: LEVOTHYROXINE 125 MCG TABLET PO SCH (08:05)
[2019-05-05] MEDS: INSULIN LISPRO 100 UNIT/ML SUBCUT SCH ×3 (08:28→16:06)
[2019-05-05] MEDS: SODIUM HYPOCHLORITE 0.25% IRRIG 473 ML BOTTLE TOP SCH (08:32)
[2019-05-05] MEDS ORDERED: LIDOCAINE 1% 20 ML VIAL ONE (12:30)
[2019-05-05] MEDS ORDERED: BUPIVACAINE MPF 0.25% 30 ML VIAL ONE (12:30)
[2019-05-05] MEDS ORDERED: LACTATED RINGERS 1,000 ML IV SCH (13:00)
[2019-05-05] MEDS ORDERED: propofoL 200 MG/20 ML VIAL IV ONE (13:37)
[2019-05-05] MEDS ORDERED: SODIUM CHLORIDE 0.9% 100 ML IV ONE (13:38)
[2019-05-05] MEDS ORDERED: LIDOCAINE 2% 5 ML VIAL ONE (13:38)
[2019-05-05] MEDS ORDERED: MIDAZOLAM 2 MG/2 ML VIAL ONE (13:38)
[2019-05-05] MEDS ORDERED: ETOMIDATE 40 MG/20 ML VIAL IV ONE (13:38)
[2019-05-05] MEDS: SPIRONOLACTONE 100 MG TABLET PO SCH (14:57)
[2019-05-05] MEDS: FUROSEMIDE 40 MG TABLET PO SCH (14:58)
[2019-05-05] MEDS: ESCITALOPRAM 10 MG TABLET PO SCH (14:58)
[2019-05-05] MEDS: ASPIRIN EC 81 MG TABLET PO SCH (14:58)
[2019-05-05] MEDS: METOPROLOL TARTRATE 100 MG TABLET PO SCH ×2 (15:00→21:08)
[2019-05-05] MEDS: RIFAXIMIN 550 MG TABLET PO SCH ×2 (15:01→21:08)
[2019-05-05] MEDS: MAGNESIUM CHLORIDE 64 MG TABLET PO SCH ×2 (15:01→21:07)
[2019-05-05] MEDS: FUROSEMIDE 20 MG TABLET PO SCH (18:02)
[2019-05-05] MEDS: PANTOPRAZOLE 40 MG TABLET PO SCH (21:07)
[2019-05-06] MEDS: PIPERACILLIN/TAZOBACTAM 3,375 MG in SODIUM CHLORIDE 0.9% 100 ML IV SCH ×3 (02:01→17:05)
[2019-05-06 05:22] LABS: Calcium 8.7 MG/DL (8.5-10.1); Osmolality,Calculated 276.7 MOS/KG (273-304)
[2019-05-06] MEDS: LEVOTHYROXINE 125 MCG TABLET PO SCH (06:52)
[2019-05-06] MEDS: INSULIN LISPRO 100 UNIT/ML SUBCUT SCH ×3 (07:51→16:14)
[2019-05-06] MEDS: METOPROLOL TARTRATE 100 MG TABLET PO SCH ×2 (08:34→21:31)
[2019-05-06] MEDS: MAGNESIUM CHLORIDE 64 MG TABLET PO SCH ×2 (08:37→21:31)
[2019-05-06] MEDS: ASPIRIN EC 81 MG TABLET PO SCH (08:37)
[2019-05-06] MEDS: RIFAXIMIN 550 MG TABLET PO SCH ×2 (08:37→21:31)
[2019-05-06] MEDS: FUROSEMIDE 40 MG TABLET PO SCH (08:37)
[2019-05-06] MEDS: SPIRONOLACTONE 100 MG TABLET PO SCH (08:37)
[2019-05-06] MEDS: ESCITALOPRAM 10 MG TABLET PO SCH (08:37)
[2019-05-06] MEDS: SODIUM HYPOCHLORITE 0.25% IRRIG 473 ML BOTTLE TOP SCH (08:38)
[2019-05-06] MEDS ORDERED: MAGNESIUM SULF RIDER 2 GM in PREMIX 1 EACH IV ONE (09:27)
[2019-05-06] MEDS ORDERED: SODIUM CHLORIDE 0.45% 1,000 ML IV SCH (10:30)
[2019-05-06] MEDS: SODIUM BICARB INJ 100 MEQ in SODIUM CHLORIDE 0.45% 1,000 ML IV SCH (13:58)
[2019-05-06] MEDS: DIGOXIN 0.125 MG TABLET PO SCH (13:58)
[2019-05-06] MEDS: FUROSEMIDE 20 MG TABLET PO SCH (18:17)
[2019-05-06] MEDS: ACETYLCYSTEINE 600 MG CAPSULE PO SCH (21:31)
[2019-05-06] MEDS: PANTOPRAZOLE 40 MG TABLET PO SCH (21:31)
[2019-05-07] MEDS: PIPERACILLIN/TAZOBACTAM 3,375 MG in SODIUM CHLORIDE 0.9% 100 ML IV SCH ×4 (03:05→23:57)
[2019-05-07 05:19] LABS: Basophils % 0.6 % (0.0-0.8); Eosinophils # 0.1 10*3/uL (0.0-0.87); Eosinophils % 1.8 % (0.00-10.9); Hemoglobin 11.4 GM/DL (14.0-18.0); Immature Granulocytes % 0.5 %; Immature Granulocytes Absolute 0.03 #; Lymphocytes # 1.4 10*3/uL (1.4-4.0); Lymphocytes % 21.6 % (21.2-54.2); Mean Corpuscular HGB Conc 34.5 GM/DL (32-36); Mean Corpuscular Volume 101.2 FL (87-102); Mean Platelet Volume 10.6 FL (9.6-12.0); Neutrophils % 64.5 % (38.7-73.9); Platelet Count 86 T/CUMM (130-400); Red Blood Count 3.26 MC/CUMM (3.8-5.5); Red Cell Distribution Width 15.6 % (9.3-17.3); White Blood Count 6.5 T/CUMM (4-12)
[2019-05-07 05:42] LABS: Eosinophils 1 % (0-10); Hypochromasia 1+; Lymphocytes 22 % (20-55); Ovalocytes Slight; Platelet Estimate Decreased; Segmented Neutrophils 68 % (50-85); Total Cells Counted 100
[2019-05-07 06:03] LABS: Calcium 8.7 MG/DL (8.5-10.1); Osmolality,Calculated 276.7 MOS/KG (273-304)
[2019-05-07] MEDS: LEVOTHYROXINE 125 MCG TABLET PO SCH (06:08)
[2019-05-07] MEDS: INSULIN LISPRO 100 UNIT/ML SUBCUT SCH ×3 (09:27→19:03)
[2019-05-07] MEDS: SODIUM BICARB INJ 100 MEQ in SODIUM CHLORIDE 0.45% 1,000 ML IV SCH ×2 (09:29)
[2019-05-07] MEDS: FUROSEMIDE 40 MG TABLET PO SCH (09:30)
[2019-05-07] MEDS: SPIRONOLACTONE 100 MG TABLET PO SCH (09:30)
[2019-05-07] MEDS: METOPROLOL TARTRATE 100 MG TABLET PO SCH ×2 (09:30→22:58)
[2019-05-07] MEDS: ASPIRIN EC 81 MG TABLET PO SCH (09:30)
[2019-05-07] MEDS: RIFAXIMIN 550 MG TABLET PO SCH ×2 (09:33→20:54)
[2019-05-07] MEDS: ESCITALOPRAM 10 MG TABLET PO SCH (09:33)
[2019-05-07] MEDS: MAGNESIUM CHLORIDE 64 MG TABLET PO SCH ×2 (09:33→20:54)
[2019-05-07] MEDS: ACETYLCYSTEINE 600 MG CAPSULE PO SCH ×2 (09:33→20:54)
[2019-05-07] MEDS: SODIUM HYPOCHLORITE 0.25% IRRIG 473 ML BOTTLE TOP SCH (12:18)
[2019-05-07] MEDS ORDERED: ALBUMIN 25% 12.5 GM/50 ML VIAL IV ONE (15:11)
[2019-05-07] MEDS ORDERED: DIGOXIN 0.5 MG/2 ML AMP IV ONE (15:11)
[2019-05-07] MEDS ORDERED: ALBUMIN 25% 12.5 GM in PREMIX 1 EACH IV ONE (15:15)
[2019-05-07] MEDS ORDERED: TISSUE ADHESIVE 1 EACH APPLICATOR TOP ONE (15:24)
[2019-05-07] MEDS: FUROSEMIDE 20 MG TABLET PO SCH (18:50)
[2019-05-07] MEDS: PANTOPRAZOLE 40 MG TABLET PO SCH (20:54)
[2019-05-08] MEDS: SODIUM BICARB INJ 100 MEQ in SODIUM CHLORIDE 0.45% 1,000 ML IV SCH (04:05)
[2019-05-08] MEDS: LEVOTHYROXINE 125 MCG TABLET PO SCH (06:31)
[2019-05-08] MEDS: INSULIN LISPRO 100 UNIT/ML SUBCUT SCH ×3 (08:24→16:57)
[2019-05-08] MEDS: ASPIRIN EC 81 MG TABLET PO SCH (08:40)
[2019-05-08] MEDS: ESCITALOPRAM 10 MG TABLET PO SCH (08:40)
[2019-05-08] MEDS: FUROSEMIDE 40 MG TABLET PO SCH (08:40)
[2019-05-08] MEDS: SPIRONOLACTONE 100 MG TABLET PO SCH (08:40)
[2019-05-08] MEDS: ACETYLCYSTEINE 600 MG CAPSULE PO SCH ×2 (08:41→21:10)
[2019-05-08] MEDS: MAGNESIUM CHLORIDE 64 MG TABLET PO SCH ×2 (08:41→21:10)
[2019-05-08] MEDS: RIFAXIMIN 550 MG TABLET PO SCH ×2 (08:41→21:10)
[2019-05-08] MEDS: METOPROLOL TARTRATE 100 MG TABLET PO SCH ×2 (08:42→21:10)
[2019-05-08] MEDS: PIPERACILLIN/TAZOBACTAM 3,375 MG in SODIUM CHLORIDE 0.9% 100 ML IV SCH (08:42)
[2019-05-08] MEDS: SODIUM HYPOCHLORITE 0.25% IRRIG 473 ML BOTTLE TOP SCH (12:00)
[2019-05-08] MEDS: DIGOXIN 0.125 MG TABLET PO SCH (12:40)
[2019-05-08 13:04] LABS: Calcium 8.4 MG/DL (8.5-10.1); Osmolality,Calculated 276.8 MOS/KG (273-304)
[2019-05-08] MEDS: FUROSEMIDE 20 MG TABLET PO SCH (18:41)
[2019-05-08] MEDS: PANTOPRAZOLE 40 MG TABLET PO SCH (21:18)
[2019-05-09 02:59] LABS: Calcium 8.4 MG/DL (8.5-10.1); Osmolality,Calculated 277.8 MOS/KG (273-304)
[2019-05-09] MEDS: LEVOTHYROXINE 125 MCG TABLET PO SCH (06:40)
[2019-05-09] MEDS: INSULIN LISPRO 100 UNIT/ML SUBCUT SCH ×3 (08:02→15:40)
[2019-05-09] MEDS: ESCITALOPRAM 10 MG TABLET PO SCH (08:49)
[2019-05-09] MEDS: ASPIRIN EC 81 MG TABLET PO SCH (08:49)
[2019-05-09] MEDS: SPIRONOLACTONE 100 MG TABLET PO SCH (08:49)
[2019-05-09] MEDS: MAGNESIUM CHLORIDE 64 MG TABLET PO SCH ×2 (08:50→20:43)
[2019-05-09] MEDS: METOPROLOL TARTRATE 100 MG TABLET PO SCH ×2 (08:50→20:44)
[2019-05-09] MEDS: ACETYLCYSTEINE 600 MG CAPSULE PO SCH ×2 (08:50→20:43)
[2019-05-09] MEDS: FUROSEMIDE 20 MG TABLET PO SCH (08:54)
[2019-05-09] MEDS: SODIUM HYPOCHLORITE 0.25% IRRIG 473 ML BOTTLE TOP SCH (09:50)
[2019-05-09] MEDS: SODIUM CHLORIDE 0.9% 1,000 ML IV SCH (17:48)
[2019-05-09] MEDS: PANTOPRAZOLE 40 MG TABLET PO SCH (20:43)
[2019-05-10] MEDS: LEVOTHYROXINE 125 MCG TABLET PO SCH (07:11)
[2019-05-10 07:41] LABS: Osmolality,Calculated 278.8 MOS/KG (273-304)
[2019-05-10] MEDS: INSULIN LISPRO 100 UNIT/ML SUBCUT SCH ×3 (07:58→16:28)
[2019-05-10] MEDS ORDERED: SODIUM POLYSTYRENE SULFATE 15 GM/60 ML BOTTLE PO STA (08:34)
[2019-05-10] MEDS: SODIUM HYPOCHLORITE 0.25% IRRIG 473 ML BOTTLE TOP SCH (08:50)
[2019-05-10] MEDS: ASPIRIN EC 81 MG TABLET PO SCH (09:22)
[2019-05-10] MEDS: FUROSEMIDE 20 MG TABLET PO SCH (09:22)
[2019-05-10] MEDS: ESCITALOPRAM 10 MG TABLET PO SCH (09:23)
[2019-05-10] MEDS: METOPROLOL TARTRATE 100 MG TABLET PO SCH ×2 (09:23→20:58)
[2019-05-10] MEDS: ACETYLCYSTEINE 600 MG CAPSULE PO SCH (09:23)
[2019-05-10] MEDS: MAGNESIUM CHLORIDE 64 MG TABLET PO SCH ×2 (09:23→20:58)
[2019-05-10] MEDS: SODIUM CHLORIDE 0.9% 1,000 ML IV SCH (11:05)
[2019-05-10] MEDS: PANTOPRAZOLE 40 MG TABLET PO SCH (20:58)
[2019-05-11] MEDS: LEVOTHYROXINE 125 MCG TABLET PO SCH (06:25)
[2019-05-11] MEDS: INSULIN LISPRO 100 UNIT/ML SUBCUT SCH ×3 (08:21→17:08)
[2019-05-11 09:00] LABS: Calcium 9.2 MG/DL (8.5-10.1); Osmolality,Calculated 277.9 MOS/KG (273-304)
[2019-05-11] MEDS: ASPIRIN EC 81 MG TABLET PO SCH (10:10)
[2019-05-11] MEDS: MAGNESIUM CHLORIDE 64 MG TABLET PO SCH ×2 (10:10→21:04)
[2019-05-11] MEDS: METOPROLOL TARTRATE 100 MG TABLET PO SCH ×2 (10:11→21:03)
[2019-05-11] MEDS: ESCITALOPRAM 10 MG TABLET PO SCH (10:11)
[2019-05-11] MEDS: SODIUM HYPOCHLORITE 0.25% IRRIG 473 ML BOTTLE TOP SCH (10:12)
[2019-05-11] MEDS: DIGOXIN 0.125 MG TABLET PO SCH (13:04)
[2019-05-11] MEDS: OCTREOTIDE 100 MCG/ML SYRINGE SUBCUT SCH ×2 (16:24→21:04)
[2019-05-11] MEDS: MIDODRINE 2.5 MG TABLET PO SCH ×2 (16:24→21:04)
[2019-05-11] MEDS: PANTOPRAZOLE 40 MG TABLET PO SCH (21:03)
[2019-05-12 04:59] LABS: Basophils # 0.1 10*3/uL (0.0-0.2); Basophils % 0.9 % (0.0-0.8); Eosinophils # 0.2 10*3/uL (0.0-0.87); Eosinophils % 2.4 % (0.00-10.9); Hematocrit 34.4 VOL% (42.0-52.0); Immature Granulocytes % 0.3 %; Immature Granulocytes Absolute 0.02 #; Lymphocytes # 1.9 10*3/uL (1.4-4.0); Lymphocytes % 24.4 % (21.2-54.2); Mean Corpuscular HGB Conc 34.9 GM/DL (32-36); Mean Corpuscular Volume 99.4 FL (87-102); Mean Platelet Volume 10.8 FL (9.6-12.0); Monocytes % 8.5 % (1.7-12.7); Neutrophils % 63.5 % (38.7-73.9); Platelet Count 112 T/CUMM (130-400); Red Blood Count 3.46 MC/CUMM (3.8-5.5); Red Cell Distribution Width 15.1 % (9.3-17.3); White Blood Count 7.6 T/CUMM (4-12)
[2019-05-12 05:17] LABS: Calcium 8.8 MG/DL (8.5-10.1); Osmolality,Calculated 279.8 MOS/KG (273-304)
[2019-05-12] MEDS: LEVOTHYROXINE 125 MCG TABLET PO SCH (06:22)
[2019-05-12] MEDS: INSULIN LISPRO 100 UNIT/ML SUBCUT SCH ×3 (07:12→17:15)
[2019-05-12] MEDS: ASPIRIN EC 81 MG TABLET PO SCH (09:51)
[2019-05-12] MEDS: ESCITALOPRAM 10 MG TABLET PO SCH (09:51)
[2019-05-12] MEDS: MAGNESIUM CHLORIDE 64 MG TABLET PO SCH ×2 (09:51→20:44)
[2019-05-12] MEDS: SODIUM HYPOCHLORITE 0.25% IRRIG 473 ML BOTTLE TOP SCH (09:51)
[2019-05-12] MEDS: OCTREOTIDE 100 MCG/ML SYRINGE SUBCUT SCH ×3 (09:51→20:45)
[2019-05-12] MEDS: MIDODRINE 2.5 MG TABLET PO SCH ×3 (09:51→20:44)
[2019-05-12] MEDS: METOPROLOL TARTRATE 100 MG TABLET PO SCH ×2 (09:51→20:44)
[2019-05-12] MEDS: LACTULOSE 20 GM/30 ML UDCUP PO SCH (11:56)
[2019-05-12] MEDS: PANTOPRAZOLE 40 MG TABLET PO SCH (20:45)
[2019-05-13 05:31] LABS: Osmolality,Calculated 281.8 MOS/KG (273-304)
[2019-05-13] MEDS: LEVOTHYROXINE 125 MCG TABLET PO SCH (06:06)
[2019-05-13] MEDS ORDERED: LACTULOSE 20 GM/30 ML UDCUP PO SCH (09:00)
[2019-05-13] MEDS: METOPROLOL TARTRATE 100 MG TABLET PO SCH ×2 (09:41→21:13)
[2019-05-13] MEDS: MAGNESIUM CHLORIDE 64 MG TABLET PO SCH ×2 (09:41→21:12)
[2019-05-13] MEDS: ESCITALOPRAM 10 MG TABLET PO SCH (09:41)
[2019-05-13] MEDS: ASPIRIN EC 81 MG TABLET PO SCH (09:41)
[2019-05-13] MEDS: SODIUM HYPOCHLORITE 0.25% IRRIG 473 ML BOTTLE TOP SCH (09:42)
[2019-05-13] MEDS: INSULIN LISPRO 100 UNIT/ML SUBCUT SCH ×3 (09:42→19:29)
[2019-05-13] MEDS: MIDODRINE 2.5 MG TABLET PO SCH ×3 (09:43→21:12)
[2019-05-13] MEDS: OCTREOTIDE 100 MCG/ML SYRINGE SUBCUT SCH ×3 (10:26→21:12)
[2019-05-13 13:58] LABS: Albumin 1.9 G/DL (3.4-5.0); Bilirubin,Direct 1.4 MG/DL (0.0-0.20); Bilirubin,Indirect 0.8 MG/DL (0.0-1.0); Bilirubin,Total 2.2 MG/DL (0.2-1.0); Total Protein 5.9 G/DL (6.4-8.3)
[2019-05-13] MEDS: DIGOXIN 0.125 MG TABLET PO SCH (15:25)
[2019-05-13] MEDS: LACTULOSE 20 GM/30 ML UDCUP PO SCH ×2 (17:19→21:12)
[2019-05-13 17:58] LABS: Apearance,Urine CLOUDY (Clear); Bilirubin,Urine Negative (Negative); Blood, Urine Moderate mg/dL (Negative); Glucose,Urine (UA) 50 mg/dL (Negative); Ketones,Urine 5 mg/dL (Negative); Nitrite,Urine Positive (Negative); Protein,Urine 30 MG/DL; RBC,Urine 52364 /HPF (0-4); Urine Color Red (Yellow); Urine Specific Gravity 1.019 (1.001-1.035); Urine Urobilinogen < 2.0 EU/DL (0.2-1.0); WBC,Urine 578 /HPF (0-6)
[2019-05-13] MEDS: RIFAXIMIN 550 MG TABLET PO SCH (21:12)
[2019-05-13] MEDS: PANTOPRAZOLE 40 MG TABLET PO SCH (21:12)
[2019-05-14 06:10] LABS: Basophils # 0.1 10*3/uL (0.0-0.2); Basophils % 0.8 % (0.0-0.8); Eosinophils # 0.2 10*3/uL (0.0-0.87); Eosinophils % 2.1 % (0.00-10.9); Hematocrit 39.3 VOL% (42.0-52.0); Hemoglobin 13.4 GM/DL (14.0-18.0); Immature Granulocytes % 0.3 %; Immature Granulocytes Absolute 0.03 #; Lymphocytes # 1.8 10*3/uL (1.4-4.0); Lymphocytes % 20.4 % (21.2-54.2); Mean Corpuscular HGB Conc 34.1 GM/DL (32-36); Mean Corpuscular Volume 101.3 FL (87-102); Mean Platelet Volume 10.5 FL (9.6-12.0); Neutrophils % 65.4 % (38.7-73.9); Platelet Count 136 T/CUMM (130-400); Red Blood Count 3.88 MC/CUMM (3.8-5.5); Red Cell Distribution Width 15.6 % (9.3-17.3)
[2019-05-14] MEDS: LEVOTHYROXINE 125 MCG TABLET PO SCH (06:12)
[2019-05-14 06:26] LABS: Risk Ratio 7.76; VLDL CHOLESTEROL 26.8 MG/DL
[2019-05-14 06:33] LABS: Eosinophils 3 % (0-10); Hypochromasia 1+; Lymphocytes 23 % (20-55); Macrocytosis Slight; Segmented Neutrophils 71 % (50-85); Total Cells Counted 100
[2019-05-14 06:34] LABS: Platelet Estimate Adequate; Target Cells Slight
[2019-05-14 06:40] LABS: Albumin 1.9 G/DL (3.4-5.0); Bilirubin,Total 3.1 MG/DL (0.2-1.0); Calcium 9.1 MG/DL (8.5-10.1); Osmolality,Calculated 282.7 MOS/KG (273-304); Total Protein 6.2 G/DL (6.4-8.3)
[2019-05-14 08:21] LABS: INR 1.2; PT Patient Result 13.3 SECS (9.6-12.2)
[2019-05-14] MEDS: INSULIN LISPRO 100 UNIT/ML SUBCUT SCH ×3 (08:30→18:34)
[2019-05-14] MEDS: MIDODRINE 2.5 MG TABLET PO SCH ×3 (09:30→21:03)
[2019-05-14] MEDS: MAGNESIUM CHLORIDE 64 MG TABLET PO SCH ×2 (09:31→21:04)
[2019-05-14] MEDS: METOPROLOL TARTRATE 100 MG TABLET PO SCH ×2 (09:31→21:03)
[2019-05-14] MEDS: cefTRIAXone 1,000 MG in SYRINGE 1 EACH IV SCH (09:31)
[2019-05-14] MEDS: OCTREOTIDE 100 MCG/ML SYRINGE SUBCUT SCH ×3 (09:31→21:04)
[2019-05-14] MEDS: ESCITALOPRAM 10 MG TABLET PO SCH (09:31)
[2019-05-14] MEDS: RIFAXIMIN 550 MG TABLET PO SCH ×2 (09:32→21:03)
[2019-05-14] MEDS: LACTULOSE 20 GM/30 ML UDCUP PO SCH ×4 (09:32→21:04)
[2019-05-14] MEDS: SODIUM HYPOCHLORITE 0.25% IRRIG 473 ML BOTTLE TOP SCH (12:32)
[2019-05-14] MEDS ORDERED: ALBUMIN 25% 50 GM in PREMIX 1 EACH IV ONE (13:38)
[2019-05-14] MEDS: SODIUM BICARBONATE 650 MG TABLET PO SCH (21:03)
[2019-05-14] MEDS: PANTOPRAZOLE 40 MG TABLET PO SCH (21:04)
[2019-05-15 05:37] LABS: Basophils # 0.1 10*3/uL (0.0-0.2); Basophils % 0.7 % (0.0-0.8); Eosinophils # 0.2 10*3/uL (0.0-0.87); Eosinophils % 2.2 % (0.00-10.9); Hematocrit 35.5 VOL% (42.0-52.0); Hemoglobin 12.1 GM/DL (14.0-18.0); Immature Granulocytes % 0.4 %; Immature Granulocytes Absolute 0.03 #; Lymphocytes # 1.8 10*3/uL (1.4-4.0); Lymphocytes % 21.8 % (21.2-54.2); Mean Corpuscular HGB Conc 34.1 GM/DL (32-36); Mean Corpuscular Volume 102.3 FL (87-102); Mean Platelet Volume 10.2 FL (9.6-12.0); Monocytes % 11.2 % (1.7-12.7); Neutrophils % 63.7 % (38.7-73.9); Platelet Count 120 T/CUMM (130-400); Red Blood Count 3.47 MC/CUMM (3.8-5.5); Red Cell Distribution Width 15.6 % (9.3-17.3)
[2019-05-15 06:01] LABS: Albumin 2.6 G/DL (3.4-5.0); Bilirubin,Total 2.8 MG/DL (0.2-1.0); Calcium 9.3 MG/DL (8.5-10.1); Osmolality,Calculated 289.1 MOS/KG (273-304); Total Protein 6.4 G/DL (6.4-8.3)
[2019-05-15] MEDS: LEVOTHYROXINE 125 MCG TABLET PO SCH (07:27)
[2019-05-15] MEDS: INSULIN LISPRO 100 UNIT/ML SUBCUT SCH ×3 (08:23→17:21)
[2019-05-15] MEDS: LACTULOSE 20 GM/30 ML UDCUP PO SCH ×3 (09:16→21:51)
[2019-05-15] MEDS: cefTRIAXone 1,000 MG in SYRINGE 1 EACH IV SCH (09:16)
[2019-05-15] MEDS: SODIUM BICARBONATE 650 MG TABLET PO SCH ×2 (09:17→21:50)
[2019-05-15] MEDS: MIDODRINE 2.5 MG TABLET PO SCH ×3 (09:17→21:49)
[2019-05-15] MEDS: RIFAXIMIN 550 MG TABLET PO SCH ×2 (09:18→21:49)
[2019-05-15] MEDS: ESCITALOPRAM 10 MG TABLET PO SCH (09:18)
[2019-05-15] MEDS: METOPROLOL TARTRATE 100 MG TABLET PO SCH (09:18)
[2019-05-15] MEDS: MAGNESIUM CHLORIDE 64 MG TABLET PO SCH ×2 (09:18→21:50)
[2019-05-15] MEDS: SODIUM HYPOCHLORITE 0.25% IRRIG 473 ML BOTTLE TOP SCH (09:19)
[2019-05-15] MEDS: OCTREOTIDE 100 MCG/ML SYRINGE SUBCUT SCH ×3 (14:55→21:56)
[2019-05-15] MEDS: DIGOXIN 0.125 MG TABLET PO SCH (15:13)
[2019-05-15] MEDS: PANTOPRAZOLE 40 MG TABLET PO SCH (21:51)
[2019-05-16] MEDS: LEVOTHYROXINE 125 MCG TABLET PO SCH (06:20)
[2019-05-16 06:55] LABS: Basophils # 0.1 10*3/uL (0.0-0.2); Basophils % 0.6 % (0.0-0.8); Eosinophils # 0.2 10*3/uL (0.0-0.87); Eosinophils % 1.8 % (0.00-10.9); Hematocrit 37.6 VOL% (42.0-52.0); Immature Granulocytes % 0.5 %; Immature Granulocytes Absolute 0.04 #; Lymphocytes # 1.9 10*3/uL (1.4-4.0); Lymphocytes % 22.9 % (21.2-54.2); Mean Corpuscular HGB Conc 34.6 GM/DL (32-36); Mean Corpuscular Volume 101.1 FL (87-102); Mean Platelet Volume 10.7 FL (9.6-12.0); Monocytes % 9.1 % (1.7-12.7); Neutrophils % 65.1 % (38.7-73.9); Platelet Count 123 T/CUMM (130-400); Red Blood Count 3.72 MC/CUMM (3.8-5.5); Red Cell Distribution Width 15.7 % (9.3-17.3); White Blood Count 8.2 T/CUMM (4-12)
[2019-05-16 07:19] LABS: Albumin 2.3 G/DL (3.4-5.0); Bilirubin,Total 3.5 MG/DL (0.2-1.0); Calcium 9.2 MG/DL (8.5-10.1); Osmolality,Calculated 285.2 MOS/KG (273-304); Total Protein 6.6 G/DL (6.4-8.3)
[2019-05-16] MEDS ORDERED: SODIUM POLYSTYRENE SULFATE 15 GM/60 ML BOTTLE RECTAL ONE (08:30)
[2019-05-16] MEDS: cefTRIAXone 1,000 MG in SYRINGE 1 EACH IV SCH (08:40)
[2019-05-16] MEDS: OCTREOTIDE 100 MCG/ML SYRINGE SUBCUT SCH ×3 (08:40→21:41)
[2019-05-16] MEDS: RIFAXIMIN 550 MG TABLET PO SCH ×2 (08:41→21:36)
[2019-05-16] MEDS: LACTULOSE 20 GM/30 ML UDCUP PO SCH ×3 (08:41→21:35)
[2019-05-16] MEDS: MAGNESIUM CHLORIDE 64 MG TABLET PO SCH ×2 (08:41→21:36)
[2019-05-16] MEDS: SODIUM BICARBONATE 650 MG TABLET PO SCH ×2 (08:41→21:36)
[2019-05-16] MEDS: ESCITALOPRAM 10 MG TABLET PO SCH (08:41)
[2019-05-16] MEDS: MIDODRINE 2.5 MG TABLET PO SCH ×3 (08:41→21:36)
[2019-05-16] MEDS: INSULIN LISPRO 100 UNIT/ML SUBCUT SCH ×3 (09:32→16:47)
[2019-05-16] MEDS: SODIUM HYPOCHLORITE 0.25% IRRIG 473 ML BOTTLE TOP SCH (09:32)
[2019-05-16] MEDS: DESITIN 4OZ/NYSTATIN 15 GRAM MIXTURE PASTE TOP SCH ×2 (16:53→21:38)
[2019-05-16] MEDS: PANTOPRAZOLE 40 MG TABLET PO SCH (21:36)
[2019-05-17 05:35] LABS: Basophils # 0.1 10*3/uL (0.0-0.2); Basophils % 0.6 % (0.0-0.8); Eosinophils # 0.1 10*3/uL (0.0-0.87); Eosinophils % 1.3 % (0.00-10.9); Hematocrit 36.1 VOL% (42.0-52.0); Hemoglobin 12.5 GM/DL (14.0-18.0); Immature Granulocytes % 0.5 %; Immature Granulocytes Absolute 0.04 #; Lymphocytes # 1.5 10*3/uL (1.4-4.0); Lymphocytes % 16.9 % (21.2-54.2); Mean Corpuscular HGB Conc 34.6 GM/DL (32-36); Mean Corpuscular Volume 100.8 FL (87-102); Neutrophils % 71.7 % (38.7-73.9); Platelet Count 121 T/CUMM (130-400); Red Blood Count 3.58 MC/CUMM (3.8-5.5); Red Cell Distribution Width 15.8 % (9.3-17.3); White Blood Count 8.6 T/CUMM (4-12)
[2019-05-17 06:03] LABS: Albumin 2.6 G/DL (3.4-5.0); Calcium 9.4 MG/DL (8.5-10.1); Osmolality,Calculated 290.8 MOS/KG (273-304); Total Protein 6.5 G/DL (6.4-8.3)
[2019-05-17] MEDS: LEVOTHYROXINE 125 MCG TABLET PO SCH (07:25)
[2019-05-17] MEDS: INSULIN LISPRO 100 UNIT/ML SUBCUT SCH ×3 (07:47→17:57)
[2019-05-17] MEDS: OCTREOTIDE 100 MCG/ML SYRINGE SUBCUT SCH ×3 (08:58→20:19)
[2019-05-17] MEDS: SODIUM BICARBONATE 650 MG TABLET PO SCH ×2 (08:58→20:19)
[2019-05-17] MEDS: LACTULOSE 20 GM/30 ML UDCUP PO SCH ×3 (08:58→20:19)
[2019-05-17] MEDS: ESCITALOPRAM 10 MG TABLET PO SCH (08:58)
[2019-05-17] MEDS: MAGNESIUM CHLORIDE 64 MG TABLET PO SCH ×2 (08:58→20:20)
[2019-05-17] MEDS: cefTRIAXone 1,000 MG in SYRINGE 1 EACH IV SCH (08:58)
[2019-05-17] MEDS: RIFAXIMIN 550 MG TABLET PO SCH ×2 (08:58→20:20)
[2019-05-17] MEDS: MIDODRINE 2.5 MG TABLET PO SCH ×3 (08:58→20:19)
[2019-05-17] MEDS: SODIUM HYPOCHLORITE 0.25% IRRIG 473 ML BOTTLE TOP SCH (08:59)
[2019-05-17] MEDS: DESITIN 4OZ/NYSTATIN 15 GRAM MIXTURE PASTE TOP SCH ×2 (08:59→20:20)
[2019-05-17] MEDS ORDERED: FLUCONAZOLE IV ONE (13:00)
[2019-05-17] MEDS: PANTOPRAZOLE 40 MG TABLET PO SCH (20:19)
[2019-05-18] MEDS: LEVOTHYROXINE 125 MCG TABLET PO SCH (06:35)
[2019-05-18 06:45] LABS: Basophils # 0.1 10*3/uL (0.0-0.2); Basophils % 0.7 % (0.0-0.8); Eosinophils # 0.3 10*3/uL (0.0-0.87); Hematocrit 34.7 VOL% (42.0-52.0); Immature Granulocytes % 0.5 %; Immature Granulocytes Absolute 0.04 #; Lymphocytes % 22.6 % (21.2-54.2); Mean Corpuscular HGB Conc 34.6 GM/DL (32-36); Mean Corpuscular Volume 100.6 FL (87-102); Mean Platelet Volume 10.6 FL (9.6-12.0); Monocytes % 9.5 % (1.7-12.7); Neutrophils % 63.7 % (38.7-73.9); Platelet Count 110 T/CUMM (130-400); Red Blood Count 3.45 MC/CUMM (3.8-5.5); White Blood Count 8.6 T/CUMM (4-12)
[2019-05-18 07:19] LABS: Albumin 2.5 G/DL (3.4-5.0); Bilirubin,Total 2.9 MG/DL (0.2-1.0); Osmolality,Calculated 282.4 MOS/KG (273-304); Total Protein 6.2 G/DL (6.4-8.3)
[2019-05-18] MEDS: INSULIN LISPRO 100 UNIT/ML SUBCUT SCH ×3 (08:21→16:11)
[2019-05-18] MEDS ORDERED: TUBERCULIN SKIN TEST 0.1 ML SYRINGE INTRADERM ONE (08:51)
[2019-05-18] MEDS: SODIUM BICARBONATE 650 MG TABLET PO SCH ×2 (09:21→20:37)
[2019-05-18] MEDS: LACTULOSE 20 GM/30 ML UDCUP PO SCH ×2 (09:21→20:37)
[2019-05-18] MEDS: ESCITALOPRAM 10 MG TABLET PO SCH (09:22)
[2019-05-18] MEDS: RIFAXIMIN 550 MG TABLET PO SCH ×2 (09:22→20:38)
[2019-05-18] MEDS: MIDODRINE 2.5 MG TABLET PO SCH ×3 (09:22→20:37)
[2019-05-18] MEDS: MAGNESIUM CHLORIDE 64 MG TABLET PO SCH ×2 (09:22→20:38)
[2019-05-18] MEDS: DESITIN 4OZ/NYSTATIN 15 GRAM MIXTURE PASTE TOP SCH ×2 (09:22→20:38)
[2019-05-18] MEDS: SODIUM HYPOCHLORITE 0.25% IRRIG 473 ML BOTTLE TOP SCH (09:23)
[2019-05-18] MEDS: OCTREOTIDE 100 MCG/ML SYRINGE SUBCUT SCH ×3 (09:35→20:38)
[2019-05-18] MEDS: DIGOXIN 0.125 MG TABLET PO SCH (12:22)
[2019-05-18] MEDS: PANTOPRAZOLE 40 MG TABLET PO SCH (20:38)
[2019-05-19] MEDS: LEVOTHYROXINE 125 MCG TABLET PO SCH (06:05)
[2019-05-19] MEDS: INSULIN LISPRO 100 UNIT/ML SUBCUT SCH ×3 (07:17→16:19)
[2019-05-19] MEDS: SODIUM BICARBONATE 650 MG TABLET PO SCH ×2 (08:39→21:43)
[2019-05-19] MEDS: MIDODRINE 2.5 MG TABLET PO SCH ×2 (08:39→21:43)
[2019-05-19] MEDS: ESCITALOPRAM 10 MG TABLET PO SCH (08:39)
[2019-05-19] MEDS: RIFAXIMIN 550 MG TABLET PO SCH ×2 (08:39→21:43)
[2019-05-19] MEDS: MAGNESIUM CHLORIDE 64 MG TABLET PO SCH ×2 (08:40→21:43)
[2019-05-19] MEDS: LACTULOSE 20 GM/30 ML UDCUP PO SCH ×3 (08:40→21:43)
[2019-05-19] MEDS: SODIUM HYPOCHLORITE 0.25% IRRIG 473 ML BOTTLE TOP SCH (08:40)
[2019-05-19] MEDS: OCTREOTIDE 100 MCG/ML SYRINGE SUBCUT SCH ×3 (08:40→21:42)
[2019-05-19] MEDS: DESITIN 4OZ/NYSTATIN 15 GRAM MIXTURE PASTE TOP SCH ×2 (08:58→21:43)
[2019-05-19] MEDS: PANTOPRAZOLE 40 MG TABLET PO SCH (21:43)
[2019-05-20 06:17] LABS: Basophils # 0.1 10*3/uL (0.0-0.2); Basophils % 0.6 % (0.0-0.8); Eosinophils # 0.3 10*3/uL (0.0-0.87); Eosinophils % 3.9 % (0.00-10.9); Hematocrit 33.5 VOL% (42.0-52.0); Hemoglobin 11.5 GM/DL (14.0-18.0); Immature Granulocytes % 0.6 %; Immature Granulocytes Absolute 0.05 #; Lymphocytes # 1.8 10*3/uL (1.4-4.0); Lymphocytes % 20.9 % (21.2-54.2); Mean Corpuscular HGB Conc 34.3 GM/DL (32-36); Mean Corpuscular Volume 100.3 FL (87-102); Mean Platelet Volume 10.9 FL (9.6-12.0); Monocytes % 11.6 % (1.7-12.7); Neutrophils % 62.4 % (38.7-73.9); Platelet Count 108 T/CUMM (130-400); Red Blood Count 3.34 MC/CUMM (3.8-5.5); White Blood Count 8.4 T/CUMM (4-12)
[2019-05-20 06:23] LABS: INR 1.2; PT Patient Result 13.5 SECS (9.6-12.2)
[2019-05-20] MEDS: LEVOTHYROXINE 125 MCG TABLET PO SCH (06:26)
[2019-05-20 06:36] LABS: Albumin 2.1 G/DL (3.4-5.0); Bilirubin,Total 3.3 MG/DL (0.2-1.0); Calcium 8.9 MG/DL (8.5-10.1); Osmolality,Calculated 276.8 MOS/KG (273-304); Total Protein 5.9 G/DL (6.4-8.3)
[2019-05-20] MEDS: INSULIN LISPRO 100 UNIT/ML SUBCUT SCH ×3 (08:08→17:55)
[2019-05-20] MEDS ORDERED: LACTULOSE 20 GM/30 ML UDCUP PO SCH (10:00)
[2019-05-20] MEDS: COLLAGENASE OINT 30 GM TUBE TOP SCH (10:59)
[2019-05-20] MEDS: SODIUM HYPOCHLORITE 0.25% IRRIG 473 ML BOTTLE TOP SCH (10:59)
[2019-05-20] MEDS: DESITIN 4OZ/NYSTATIN 15 GRAM MIXTURE PASTE TOP SCH ×2 (11:03→21:54)
[2019-05-20] MEDS: MIDODRINE 2.5 MG TABLET PO SCH ×2 (11:15→21:53)
[2019-05-20] MEDS: OCTREOTIDE 100 MCG/ML SYRINGE SUBCUT SCH ×3 (11:15→22:20)
[2019-05-20] MEDS: ESCITALOPRAM 10 MG TABLET PO SCH (11:16)
[2019-05-20] MEDS: SODIUM BICARBONATE 650 MG TABLET PO SCH ×2 (11:16→21:52)
[2019-05-20] MEDS: MAGNESIUM CHLORIDE 64 MG TABLET PO SCH ×2 (11:16→21:53)
[2019-05-20] MEDS: RIFAXIMIN 550 MG TABLET PO SCH ×2 (11:16→21:53)
[2019-05-20] MEDS: LACTULOSE 20 GM/30 ML UDCUP PO SCH ×4 (11:17→21:54)
[2019-05-20] MEDS ORDERED: LACTULOSE 320 GM/480 ML BOTTLE RECTAL ONE (14:00)
[2019-05-20] MEDS ORDERED: ALBUMIN 25% 12.5 GM/50 ML VIAL IV ONE (14:44)
[2019-05-20] MEDS ORDERED: ALBUMIN 25% 12.5 GM in PREMIX 1 EACH IV ONE (14:49)
[2019-05-20] MEDS: DIGOXIN 0.125 MG TABLET PO SCH (15:35)
[2019-05-20] MEDS: PANTOPRAZOLE 40 MG TABLET PO SCH (21:53)
[2019-05-21] MEDS: LACTULOSE 20 GM/30 ML UDCUP PO SCH ×6 (00:29→21:20)
[2019-05-21 05:14] LABS: Basophils % 0.5 % (0.0-0.8); Eosinophils # 0.3 10*3/uL (0.0-0.87); Eosinophils % 3.2 % (0.00-10.9); Hematocrit 35.5 VOL% (42.0-52.0); Immature Granulocytes % 0.5 %; Immature Granulocytes Absolute 0.04 #; Lymphocytes # 1.8 10*3/uL (1.4-4.0); Lymphocytes % 21.9 % (21.2-54.2); Mean Corpuscular HGB Conc 33.8 GM/DL (32-36); Mean Corpuscular Volume 101.1 FL (87-102); Mean Platelet Volume 10.5 FL (9.6-12.0); Monocytes % 10.9 % (1.7-12.7); Platelet Count 106 T/CUMM (130-400); Red Blood Count 3.51 MC/CUMM (3.8-5.5); Red Cell Distribution Width 16.2 % (9.3-17.3); White Blood Count 8.3 T/CUMM (4-12)
[2019-05-21 05:38] LABS: Osmolality,Calculated 283.2 MOS/KG (273-304)
[2019-05-21] MEDS: LEVOTHYROXINE 125 MCG TABLET PO SCH (06:39)
[2019-05-21] MEDS: INSULIN LISPRO 100 UNIT/ML SUBCUT SCH ×3 (07:41→16:34)
[2019-05-21] MEDS: SODIUM BICARBONATE 650 MG TABLET PO SCH ×2 (08:53→21:19)
[2019-05-21] MEDS: ESCITALOPRAM 10 MG TABLET PO SCH (08:53)
[2019-05-21] MEDS: MAGNESIUM CHLORIDE 64 MG TABLET PO SCH ×2 (08:53→21:19)
[2019-05-21] MEDS: DESITIN 4OZ/NYSTATIN 15 GRAM MIXTURE PASTE TOP SCH ×2 (08:54→21:20)
[2019-05-21] MEDS: MIDODRINE 2.5 MG TABLET PO SCH ×2 (08:54→21:19)
[2019-05-21] MEDS: RIFAXIMIN 550 MG TABLET PO SCH ×2 (08:54→21:19)
[2019-05-21] MEDS: COLLAGENASE OINT 30 GM TUBE TOP SCH (08:55)
[2019-05-21] MEDS: SODIUM HYPOCHLORITE 0.25% IRRIG 473 ML BOTTLE TOP SCH (08:55)
[2019-05-21] MEDS: OCTREOTIDE 100 MCG/ML SYRINGE SUBCUT SCH ×3 (09:05→21:19)
[2019-05-21] MEDS: PANTOPRAZOLE 40 MG TABLET PO SCH (21:19)
[2019-05-22] MEDS: LACTULOSE 20 GM/30 ML UDCUP PO SCH ×3 (01:32→08:32)
[2019-05-22] MEDS: LEVOTHYROXINE 125 MCG TABLET PO SCH (06:19)
[2019-05-22] MEDS: INSULIN LISPRO 100 UNIT/ML SUBCUT SCH (07:49)
[2019-05-22] MEDS: ESCITALOPRAM 10 MG TABLET PO SCH (08:30)
[2019-05-22] MEDS: SODIUM BICARBONATE 650 MG TABLET PO SCH (08:30)
[2019-05-22] MEDS: RIFAXIMIN 550 MG TABLET PO SCH (08:31)
[2019-05-22] MEDS: MIDODRINE 2.5 MG TABLET PO SCH (08:31)
[2019-05-22] MEDS: OCTREOTIDE 100 MCG/ML SYRINGE SUBCUT SCH (08:31)
[2019-05-22] MEDS: MAGNESIUM CHLORIDE 64 MG TABLET PO SCH (08:33)
[2019-05-22] MEDS: DESITIN 4OZ/NYSTATIN 15 GRAM MIXTURE PASTE TOP SCH (08:39)
[2019-05-22] MEDS: SODIUM HYPOCHLORITE 0.25% IRRIG 473 ML BOTTLE TOP SCH (08:39)
[2019-05-22] MEDS: COLLAGENASE OINT 30 GM TUBE TOP SCH (08:39)
[2019-05-22 11:33] VITALS: BP 90/66
== END 2019-05-22 12:53 | DRG 264 ==
LOC: N.ED 11:23 → N.EDINP 14:56 → SUATTDRO 14:56 → N.3E 15:56
PROVIDERS: ADMIT Surgery; ATTEND Internal Medicine